=== PATIENT | female | born 1955 | race Caucasian/White ===

== ENCOUNTER 2020-12-06 14:14 | Outpatient (CLI) | payer MEDICARE, MEDICAID, SELFPAY ==
[2020-12-06 14:37] LABS: Basophils Percent Auto 0.5 % (0.2-1.2); Eosinophils Absolute Auto 0.2 K/mm3 (0-0.3); Eosinophils Percent Auto 2.4 % (0-4.4); Hematocrit 44.7 % (37.0-47.0); Hemoglobin 14.5 g/dL (12.0-15.0); Immature Granulocyte Absolute 0.03 K/mm3 (0.00-0.031); Immature Granulocyte Percent A 0.4 % (0-0.5); Lymphocytes Absolute Auto 2.48 K/mm3 (0.9-3.2); Lymphocytes Percent Auto 32.7 % (18.3-44.2); Mean Corpuscular HGB Conc 32.4 g/dl (32-36); Mean Corpuscular Hemoglobin 31.1 pg (26-34); Mean Corpuscular Volume 95.9 fl (80-100); Mean Platelet Volume 9.7 fl (7.4-10.4); Monocytes Absolute Auto 0.7 K/mm3 (0.1-0.6); Monocytes Percent Auto 9.8 % (2.6-8.5); Neutrophils Absolute Auto 4.1 K/mm3 (1.3-6.7); Neutrophils Percent Auto 54.2 % (45.5-73.1); Platelet Count Result 264 k/mm3 (150-375); Red Blood Count 4.66 M/mm3 (4.2-5.4); White Blood Count 7.6 K/mm3 (4.5-10.0)
[2020-12-06 16:30] LABS: Alanine Aminotransferase 55 U/L (4-35); Albumin Level 4.1 g/dL (3.5-5.1); Alkaline Phosphatase 132 U/L (38-126); Anion Gap 7 mmol/L (8-16); Aspartate Amino Transferase 63 U/L (14-36); Bilirubin,Total 0.5 mg/dL (0.2-1.3); Blood Urea Nitrogen 17 mg/dL (7-17); Calcium 9.3 mg/dL (8.4-10.2); Carbon Dioxide 26 mmol/L (22-30); Chloride 106 mmol/L (98-107); Estimated Glomerular Filt Rate > 60; Glucose 97 mg/dL (65-105); Potassium 4.1 mmol/L (3.4-5.0); Sodium 139 mmol/L (137-145)
== END 2020-12-06 14:15 | disposition home or self-care (01) ==
LOC: ANHLAB 14:19
PROVIDERS: Visit Provider Internal Medicine Hematology & Oncology
DX: C34.90 Malignant neoplasm of unspecified part of unspecified bronchus or lung (principal)
CPT/HCPCS: 36415; 80053; 85025

== ENCOUNTER 2020-12-11 06:37 | Outpatient (CLI) | payer MEDICARE, MEDICAID, SELFPAY ==
--- NOTE | ~2020-12-11 | CT_ITS ---
EXAMINATION: CT diagnostic chest w con DATE: 12/11/2020 07:35 INDICATION: Small cell lung cancer TECHNIQUE: Transaxial computed tomographic images of the chest were obtained after the administration of 75 cc of Omnipaque 350 intravenous contrast. The dose-length product (DLP) was 175.08 mGy-cm. Ite rative reconstruction was used. COMPARISON: None FINDINGS: There is severe emphysema. There is a 6 mm nodule of the right lower lobe on image 62. Calc ified pulmonary nodules are consistent with old granulomatous disease. There is no pleural effusion o r pneumothorax. No pathologically enlarged thoracic lymph nodes are identified. The heart size is nor mal. Surgical changes of left axillary lymph node dissection are noted. There is calcified coronary a rtery atherosclerosis. A moderate-sized pericardial effusion is noted. There is a small sliding hiata l hernia. The liver is diffusely low in attenuation when compared with the spleen, consistent with he patic steatosis. There is mild thoracic spondylosis. IMPRESSION: 1. Indeterminate right lower lobe nodule. Comparison with any prior available imaging would be helpfu l. 2. Severe emphysema. 3. Moderate-sized pericardial effusion. Reviewed, dictated and finalized at location A. AL SUPERINTENDENT IMPRESSION: 1. Indeterminate right lower lobe nodule. Comparison with any prior available i maging would be helpful. 2. Severe emphysema. 3. Moderate-sized pericardial effusion.
== END 2020-12-11 06:38 | disposition home or self-care (01) ==
PROVIDERS: Visit Provider Internal Medicine Hematology & Oncology
DX: C34.90 Malignant neoplasm of unspecified part of unspecified bronchus or lung (principal); J43.9 Emphysema, unspecified; I31.3 Pericardial effusion (noninflammatory)
CPT/HCPCS: 71260; Q9967

== ENCOUNTER 2021-01-04 08:18 | Outpatient (CLI) | payer MEDICARE, MEDICAID, SELFPAY | END 2021-01-04 08:19 | disposition home or self-care (01) | LOC: ANHCOVIDVC 08:18 | DX: Z23 Encounter for immunization (principal) | CPT/HCPCS: 0001A; 91300 ==

== ENCOUNTER 2021-01-25 08:10 | Outpatient (CLI) | payer MEDICARE, MEDICAID, SELFPAY | END 2021-01-25 08:11 | disposition home or self-care (01) | LOC: ANHCOVIDVC 08:10 | DX: Z23 Encounter for immunization (principal) | CPT/HCPCS: 0002A; 91300 ==

== ENCOUNTER 2021-03-19 10:57 | Outpatient (CLI) | payer MEDICARE, MEDICAID, SELFPAY ==
[2021-03-21 18:57] LABS: CA 15-3 20 U/mL (<32)
== END 2021-03-19 10:58 | disposition home or self-care (01) ==
LOC: ANHLAB 10:59
PROVIDERS: Visit Provider Internal Medicine Hematology & Oncology
DX: C50.412 Malignant neoplasm of upper-outer quadrant of left female breast (principal); Z17.0 Estrogen receptor positive status [ER+]
CPT/HCPCS: 36415; 86300

== ENCOUNTER 2021-03-27 13:27 | Outpatient (CLI) | payer MEDICARE, MEDICAID, SELFPAY ==
[2021-03-27 13:49] LABS: Basophils Percent Auto 0.4 % (0.2-1.2); Eosinophils Absolute Auto 0.2 K/mm3 (0-0.3); Eosinophils Percent Auto 2.9 % (0-4.4); Hematocrit 43.6 % (37.0-47.0); Hemoglobin 14.2 g/dL (12.0-15.0); Immature Granulocyte Absolute 0.04 K/mm3 (0.00-0.031); Immature Granulocyte Percent A 0.5 % (0-0.5); Lymphocytes Absolute Auto 2.42 K/mm3 (0.9-3.2); Lymphocytes Percent Auto 29.1 % (18.3-44.2); Mean Corpuscular HGB Conc 32.6 g/dl (32-36); Mean Corpuscular Hemoglobin 31.3 pg (26-34); Mean Corpuscular Volume 96.2 fl (80-100); Mean Platelet Volume 9.4 fl (7.4-10.4); Monocytes Absolute Auto 0.9 K/mm3 (0.1-0.6); Monocytes Percent Auto 10.9 % (2.6-8.5); Neutrophils Absolute Auto 4.7 K/mm3 (1.3-6.7); Neutrophils Percent Auto 56.2 % (45.5-73.1); Platelet Count Result 242 k/mm3 (150-375); Red Blood Count 4.53 M/mm3 (4.2-5.4); Red Cell Distribution Width 12.7 % (11.5-14.5); White Blood Count 8.3 K/mm3 (4.5-10.0)
== END 2021-03-27 13:28 | disposition home or self-care (01) ==
PROVIDERS: Visit Provider Internal Medicine Hematology & Oncology
DX: C34.90 Malignant neoplasm of unspecified part of unspecified bronchus or lung (principal)
CPT/HCPCS: 36415; 85025

== ENCOUNTER 2021-06-18 12:48 | Outpatient (CLI) | payer MEDICARE, MEDICAID, SELFPAY ==
--- NOTE | ~2021-06-18 | CT_ITS ---
EXAMINATION: CT chest abdomen pelvis w con DATE: 06/18/2021 13:33 INDICATION: Small cell lung cancer restaging TECHNIQUE: Computed tomography (CT) of the chest, abdomen, and pelvis was performed with 100 cc Omnip aque 350 intravenous contrast. Automated exposure control and iterative reconstruction technique were employed. Exam dose: 771.36 mGy-cm total exam DLP. COMPARISON: December 11, 2020 CT chest FINDINGS: CHEST CT: Severe emphysematous changes of the lungs, particularly the upper lobes. No pulmonary infiltrate or consolidation or pulmonary mass lesion is evident. There is mild pericardial effusion. Heart size is normal. There is coronary artery calcification. No thoracic aortic aneurysm or dissection. There is atherosclerotic calcification of the thoracic aor ta, great vessels No hilar or mediastinal mass lesion or lymphadenopathy. Small sliding hiatal hernia. ABDOMEN/PELVIS CT: There is diffuse hepatic steatosis. Gallbladder is absent. No bile duct or pancreatic duct dilatation. No hepatic or pancreatic or splenic space-occupying mass lesion normal morphology of the adrenal glan ds. Approximately 2 x 3 mm upper pole right renal calcification. 2.6 x 5.4 mm lower pole left renal calculus. The urinary bladder, uterus and adnexal areas are unremarkable. There is extensive calcification of the abdominal aorta but no aneurysm. No intraperitoneal or retrop eritoneal or pelvic mass lesion or adenopathy or ascites. There is extensive diverticulosis of the left colon; no CT evidence of diverticulitis. No bowel obstr uction, bowel wall thickening, pneumatosis or intraperitoneal free air. There is a benign lucency at the L3 vertebral body with thin sclerotic margins suggesting benign etio logy. No apparent suspicious osteolytic or osteoblastic lesions. IMPRESSION: Severe emphysema Mild pericardial effusion Small sliding hiatal hernia Hepatic steatosis Status post cholecystectomy Nonobstructing calculus of each kidney Extensive diverticulosis of left colon; no evidence of diverticulitis Reviewed, dictated and finalized at Location [facility]. Reviewed, dictated and finalized at location A.
[2021-06-18 13:27] LABS: Estimated Glomerular Filt Rate 55
== END 2021-06-18 12:49 | disposition home or self-care (01) ==
PROVIDERS: PCP Physician Assistant; Visit Provider Internal Medicine Hematology & Oncology
DX: C34.90 Malignant neoplasm of unspecified part of unspecified bronchus or lung (principal); J43.9 Emphysema, unspecified; I31.3 Pericardial effusion (noninflammatory); K44.9 Diaphragmatic hernia without obstruction or gangrene; K76.0 Fatty (change of) liver, not elsewhere classified; Z90.49 Acquired absence of other specified parts of digestive tract; N20.0 Calculus of kidney; K57.90 Diverticulosis of intestine, part unspecified, without perforation or abscess without bleeding
CPT/HCPCS: 71260; 74177; Q9967

== ENCOUNTER 2021-06-25 12:41 | Outpatient (CLI) | payer MEDICARE, MEDICAID, SELFPAY ==
[2021-06-25 13:03] LABS: Basophils Percent Auto 0.5 % (0.2-1.2); Eosinophils Absolute Auto 0.1 K/mm3 (0-0.3); Eosinophils Percent Auto 2.3 % (0-4.4); Hematocrit 41.9 % (37.0-47.0); Hemoglobin 13.7 g/dL (12.0-15.0); Immature Granulocyte Absolute 0.01 K/mm3 (0.00-0.031); Immature Granulocyte Percent A 0.2 % (0-0.5); Lymphocytes Absolute Auto 1.93 K/mm3 (0.9-3.2); Mean Corpuscular HGB Conc 32.7 g/dl (32-36); Mean Corpuscular Hemoglobin 31.4 pg (26-34); Mean Corpuscular Volume 95.9 fl (80-100); Mean Platelet Volume 9.6 fl (7.4-10.4); Monocytes Absolute Auto 0.6 K/mm3 (0.1-0.6); Monocytes Percent Auto 9.3 % (2.6-8.5); Neutrophils Absolute Auto 3.5 K/mm3 (1.3-6.7); Neutrophils Percent Auto 56.7 % (45.5-73.1); Platelet Count Result 232 k/mm3 (150-375); Red Blood Count 4.37 M/mm3 (4.2-5.4); White Blood Count 6.2 K/mm3 (4.5-10.0)
[2021-06-25 13:07] LABS: Blood Urea Nitrogen 12 mg/dL (8-26); Carbon Dioxide 24 mmol/L (22-30); Chloride 101 mmol/L (98-109); Estimated Glomerular Filt Rate > 60; Glucose 122 mg/dL (70-105); Sodium 140 mmol/L (138-146)
[2021-06-25 16:48] LABS: Alanine Aminotransferase 47 U/L (4-35); Alkaline Phosphatase 101 U/L (38-126); Anion Gap 9 mmol/L (8-16); Aspartate Amino Transferase 87 U/L (14-36); Bilirubin,Total 0.5 mg/dL (0.2-1.3); Blood Urea Nitrogen 13 mg/dL (7-17); Calcium 9.4 mg/dL (8.4-10.2); Carbon Dioxide 26 mmol/L (22-30); Chloride 105 mmol/L (98-107); Estimated Glomerular Filt Rate > 60; Glucose 118 mg/dL (65-110); Potassium 4.3 mmol/L (3.4-5.0); Sodium 140 mmol/L (137-145)
== END 2021-06-25 12:42 | disposition home or self-care (01) ==
LOC: ANHLAB 12:44
PROVIDERS: PCP Physician Assistant; Visit Provider Internal Medicine Hematology & Oncology
DX: C34.90 Malignant neoplasm of unspecified part of unspecified bronchus or lung (principal)
CPT/HCPCS: 36415; 80048; 80053; 85025

== ENCOUNTER 2021-12-19 10:29 | Outpatient (CLI) | payer MEDICARE, MEDICAID, SELFPAY ==
--- NOTE | 2021-12-19 11:15 | NEURO_ITS ---
Impression: # Complains of numbness of left hand. History of chemotherapy. # Left ulnar neuropathy around the elbow. # No Carpal Tunnel Syndrome. # Normal needle/EMG exam. # Clinical correlation recommended. Nerve Conduction Studies Anti Sensory Summary Table Stim Site NR Peak (ms) P-T Amp (?V) Site1 Site2 Delta-P (ms) Dist (cm) Rufus (m/s) Left Median Anti Sensory (2-3nd Digit) Wrist 2.7 83.2 Wrist 2-3nd Digit 2.7 14.0 52 Wrist 2.6 69.9 Wrist 2-3nd Digit 2.7 14.0 52 Right Median Anti Sensory (2-3nd Digit) Wrist 2.4 60.8 Wrist 2-3nd Digit 2.4 14.0 58 Wrist 2.3 52.3 Wrist 2-3nd Digit 2.4 14.0 58 Left Radial Anti Sensory (Base 1st Digit) Wrist 1.8 37.4 Wrist Base 1st Digit 1.8 0.0 Right Radial Anti Sensory (Base 1st Digit) Wrist 2.0 20.2 Wrist Base 1st Digit 2.0 0.0 Left Ulnar Anti Sensory (5th Digit) Wrist 5.0 12.6 Wrist 5th Digit 5.0 14.0 28 Right Ulnar Anti Sensory (5th Digit) Wrist 2.2 23.0 Wrist 5th Digit 2.2 14.0 64 Motor Summary Table Stim Site NR Onset (ms) O-P Amp (mV) Site1 Site2 Delta-0 (ms) Dist (cm) Rufus (m/s) Left Median Motor (Abd Poll Brev) Wrist 3.0 1.2 Elbow Wrist 4.8 27.0 56 Elbow 7.8 1.4 Right Median Motor (Abd Poll Brev) Wrist 2.7 9.3 Elbow Wrist 4.1 25.0 61 Elbow 6.8 2.1 Left Ulnar Motor (Abd Dig Minimi) Wrist 3.0 1.8 A Elbow Wrist 6.8 30.0 44 A Elbow 9.8 1.7 B Elbow Wrist 5.7 25.0 44 B Elbow 8.7 2.0 Right Ulnar Motor (Abd Dig Minimi) Wrist 2.2 6.8 A Elbow Wrist 4.5 27.0 60 A Elbow 6.7 4.7 F Wave Studies NR F-Lat (ms) L-R F-Lat (ms) Left Median (Mrkrs) (Abd Poll Brev) 25.69 0.25 Right Median (Mrkrs) (Abd Poll Brev) 25.44 0.25 Left Ulnar (Mrkrs) (Abd Dig Min) 26.63 1.65 Right Ulnar (Mrkrs) (Abd Dig Min) 24.98 1.65 EMG Side Muscle Nerve Root Ins Act Fibs Amp Dur Recrt Comment Right 1stDorInt Ulnar C8-T1 Nml Nml Nml Nml Nml Right Ext Indicis Radial (Post Int) C7-8 Nml Nml Nml Nml Nml Right Ext Digitorum Radial (Post Int) C7-8 Nml Nml Nml Nml Nml Right BrachioRad Radial C5-6 Nml Nml Nml Nml Nml Right PronatorTeres Median C6-7 Nml Nml Nml Nml Nml Right Abd Poll Brev Median C8-T1 Nml Nml Nml Nml Nml Left 1stDorInt Ulnar C8-T1 Nml Nml Nml Nml Nml Left Ext Indicis Radial (Post Int) C7-8 Nml Nml Nml Nml Nml Left Ext Digitorum Radial (Post Int) C7-8 Nml Nml Nml Nml Nml Left BrachioRad Radial C5-6 Nml Nml Nml Nml Nml Left PronatorTeres Median C6-7 Nml Nml Nml Nml Nml Left Abd Poll Brev Median C8-T1 Nml Nml Nml Nml Nml MTDD
[2021-12-19 11:46] LABS: Basophils Percent Auto 0.6 % (0.2-1.2); Eosinophils Absolute Auto 0.2 K/mm3 (0-0.3); Eosinophils Percent Auto 2.4 % (0-4.4); Hemoglobin 14.6 g/dL (12.0-15.0); Immature Granulocyte Absolute 0.03 K/mm3 (0.00-0.031); Immature Granulocyte Percent A 0.4 % (0-0.5); Lymphocytes Absolute Auto 1.86 K/mm3 (0.9-3.2); Lymphocytes Percent Auto 26.3 % (18.3-44.2); Mean Corpuscular HGB Conc 33.2 g/dl (32-36); Mean Corpuscular Hemoglobin 32.2 pg (26-34); Mean Corpuscular Volume 96.9 fl (80-100); Mean Platelet Volume 9.8 fl (7.4-10.4); Monocytes Absolute Auto 0.7 K/mm3 (0.1-0.6); Monocytes Percent Auto 9.5 % (2.6-8.5); Neutrophils Absolute Auto 4.3 K/mm3 (1.3-6.7); Neutrophils Percent Auto 60.8 % (45.5-73.1); Platelet Count Result 246 k/mm3 (150-375); Red Blood Count 4.54 M/mm3 (4.2-5.4); Red Cell Distribution Width 13.4 % (11.5-14.5); White Blood Count 7.1 K/mm3 (4.5-10.0)
[2021-12-19 12:01] LABS: Alanine Aminotransferase 58 U/L (4-35); Albumin Level 4.1 g/dL (3.5-5.1); Alkaline Phosphatase 121 U/L (38-126); Anion Gap 9 mmol/L (8-16); Aspartate Amino Transferase 85 U/L (14-36); Bilirubin,Total 0.4 mg/dL (0.2-1.3); Blood Urea Nitrogen 15 mg/dL (7-17); Calcium 9.1 mg/dL (8.4-10.2); Carbon Dioxide 25 mmol/L (22-30); Chloride 106 mmol/L (98-107); Estimated Glomerular Filt Rate > 60; Glucose 144 mg/dL (65-110); Potassium 3.9 mmol/L (3.4-5.0); Sodium 140 mmol/L (137-145)
== END 2021-12-19 10:30 | disposition home or self-care (01) ==
PROVIDERS: PCP Family Medicine; Referring Provider Internal Medicine Hematology & Oncology; Visit Provider Family Medicine
DX: C34.90 Malignant neoplasm of unspecified part of unspecified bronchus or lung (principal); G56.22 Lesion of ulnar nerve, left upper limb
CPT/HCPCS: 36415; 80053; 85025; 95886; 95911

== ENCOUNTER 2021-12-24 08:30 | Outpatient (CLI) | payer MEDICARE, MEDICAID, SELFPAY ==
--- NOTE | ~2021-12-24 | CT_ITS ---
EXAMINATION: CT diagnostic chest w con DATE: 12/24/2021 09:19 INDICATION: Small cell lung cancer TECHNIQUE: Transaxial computed tomographic images of the chest were obtained after the administration of 75 cc of Omnipaque 350 intravenous contrast. The dose-length product (DLP) was 202.72 mGy-cm. Ite rative reconstruction was used. COMPARISON: 06/18/2021 FINDINGS: There is severe emphysema. There is a stable 6 mm nodule of the right lower lobe. There is scarring in the right lung apex. Calcified pulmonary nodules are consistent with old granulomatous di sease. There is no pleural effusion or pneumothorax. Mild dependent atelectasis is noted. There is a small sliding hiatal hernia. No pathologically enlarged thoracic lymph nodes are identified. The hear t size is normal. There is a small pericardial effusion. Calcified coronary artery atherosclerosis is noted. There is mild thoracic spondylosis. IMPRESSION: 1. Stable right lower lobe nodule, consistent with old granulomatous disease versus stable treated ma lignancy. 2. Severe emphysema. Reviewed, dictated and finalized at location F. STANT DIRECTOR OF NURSING IMPRESSION: 1. Stable right lower lobe nodule, consistent with old granulomatous disease ve rsus stable treated malignancy. 2. Severe emphysema.
== END 2021-12-24 08:31 | disposition home or self-care (01) ==
LOC: ANHIMG 08:33
PROVIDERS: PCP Family Medicine; Visit Provider Internal Medicine Hematology & Oncology
DX: C34.90 Malignant neoplasm of unspecified part of unspecified bronchus or lung (principal); J43.9 Emphysema, unspecified
CPT/HCPCS: 71260; Q9967

== ENCOUNTER 2022-02-20 01:02 | Day surgery (SDC) | payer MEDICARE, MEDICAID, SELFPAY ==
--- NOTE | 2022-02-11 13:56 | PC.NURSE ---
Report to the Outpatient Waiting Room, entrance under the green pavilion located off [facility], at time _0745 on date _02/20/22 . OR Time: . - You and your visitor will be asked a series of questions to screen for COVID 19 for your protection. - A mask is required within the hospital. Preoperative COVID Testing Requirements: No COVID Test needed if: (proof is required; if not received patient will have Rapid Test prior to entry) - Patient has received COVID Vaccine at least 14 days prior to procedure date or - Patient has positive COVID test result within last 90 days of surgery date. COVID Test needed if above criteria is not met If not COVID vaccinated a COVID test must be conducted within 72 hours of surgery and patient is asked to isolate self from time of testing until procedure. You will go to the [facility] for your COVID testing. The [facility] is located at the corner of [address] [facility]. You will only be called if COVID results are positive and your surgeon may reschedule your elective surgery date. Patients may have clear liquids (water, carbonated beverages, clear teas, apple juice) until 3 hours prior to surgery with a maximum of 20 ounces. - No food from midnight until time of surgery - Infants may have breast milk until 4 hours before surgery, infant formula 6 hours prior to surgery. - Children will be allowed to drink immediately following surgery. If applicable, please bring a bottle or sippy cup to assist with drinking. Juice, water, soda, and popsicles are readily available. For infants on formula, please bring formula the day of surgery. Pacifiers are allowed. Take the following medications with a SIP of water the morning of surgery: ___INHALERS,LEVOTHYROXINE Medications to discontinue per physician ALL VITAMINS AND SUPPLEMENTS 3 DAYS PRE OP Date to take last dose__02/16/22 Please no make-up, nail bengali, hairspray, perfume, deodorant, or body powder the day of surgery. No jewelry (including any body piercings) or valuables the day of surgery, leave them at home. Please take a shower or bath the night before, or the morning of, surgery with an antibacterial soap. Wear comfortable, loose fitting clothing. Children are encouraged to wear pajamas. - Jewelry must be removed prior to entering the operating room. Rings and piercings that are not removed may be cut off. - The hospital will not accept responsibility for valuables. - Please leave all valuables, including medications, at home the day of surgery. If you are going home after surgery, a licensed full service vending driver must drive you home. - NO public transportation without another adult. - We recommend that an adult stay with you for 24 hours following discharge. - We also recommend that you do not drive, make important decision, drink alcoholic beverages, or take any drugs that were not prescribed by your health care provider for at least 24 hours after your discharge time. For Pediatric surgeries, we recommend two adults accompany the child home (only one inside the building at this time). One visitor will be allowed to accompany the patient into the hospital. Patients visitor will be instructed to remain with patient at all times or leave the building. We will allow the visitor to come back to the postoperative area when patient is ready. Follow any additional instructions given to you from your surgeon. Telephone instructions given to _PATIENT and asked if any additional questions and then verbalized understanding. Patient advised to call surgeon office or pre surgery nurse liaison [phone] if any additional questions.
[2022-02-11 14:02] VITALS: BMI 30.1
--- NOTE | 2022-02-19 13:51 | WPDANESEPPF ---
Anes - Initial Pre Proc Eval Procedure: Operation Date: 02/20/22 09:45 Proposed Procedures p Left Ulnar Neuroplasty at Elbow - Neil Loja MD Date/Time: 02/19/22 13:51 Surgeon: Neil Loja MD Pre Op Diagnosis: left cubital tunnel syndrome Patient Data Age: 66 Gender: F Height: 1.6 m Weight: 77.15 kg Allergies Allergy/AdvReac Type Severity Reaction Status Date / Time etoposide Allergy Mild FAINTED/DIZ Verified 02/20/22 07:46 ZINESS Home Medications Medication Instructions Recorded Confirmed Type montelukast 10 mg tablet 10 mg PO QHS 09/12/21 02/20/22 History tiotropium bromide 2.5 2 puff INHALATION DAILY 09/12/21 02/20/22 History mcg/actuation mist for inhalation albuterol sulfate 90 mcg/actuation 1 puff INHALATION Q4H PRN #8.5 g 10/15/21 02/20/22 Rx aerosol inhaler cetirizine [Zyrtec] 10 mg PO DAILY 02/11/22 02/20/22 History cholecalciferol (vitamin D3) 50 mcg PO DAILY 02/11/22 02/20/22 History levothyroxine 25 mcg PO DAILY 02/11/22 02/20/22 History miconazole nitrate 1 applic TOPICAL PRN PRN 02/11/22 02/11/22 History multivitamin [Multi-Vitamins] 1 tablet PO DAILY 02/11/22 02/20/22 History Patient hx anesthesia problems: none Family hx anesthesia problems: none Results Review: All pre-operative results and documents have been reviewed as part of the pre-operative evaluation. [facility] Past Medical History Medical History COPD (chronic obstructive pulmonary disease) History of bilateral breast cancer History of rheumatic fever as a child Hypothyroidism IBS (irritable bowel syndrome) Lactose intolerance Osteoarthritis Pre-diabetes Prolapse of mitral valve Seasonal allergies Small cell lung cancer, right upper lobe Surgical History Surgical History History of bilateral mastectomy 2003 Hx of cholecystectomy (~1984) Family History Family History Mother Breast cancer Diabetes mellitus Sibling Diabetes mellitus Son Diabetes mellitus Social History Social History Smoking packs per day: 1.5 Smoking cigarettes per day: 30.0 Years smoked: 53 Smoking pack-years: 79.50 Smoking status: Former smoker Tobacco type: cigarettes Smoking end date: 11/03/16 Alcohol intake: never Substance use: never Substance use type: does not use Living arrangements: with family Gender identity (if verbalized by the patient): Female Spiritual care concerns: No Anes - Eval Final PreProcedure Day of Procedure 02/19/22 13:51 Patient weight: obese Heart: regular rate and rhythm Lungs: clear to auscultation and normal air movement Airway: Mallampati scale class II Neurological: alert and oriented Last oral intake: >/= 8 hours ASA classification: III Emergent: no Anesthetic plan: proceed Anesthesia type and monitoring: general GIVS and standard monitoring Results Review: All pre-operative results and documents have been reviewed as part of the pre-operative evaluation. Informed Consent: The patient's anesthetic plan and its attendant risks and benefits were discussed with the patient/family/POA. Questions were solicited and answers provided to the satisfaction of the patient/family/POA.
--- NOTE | 2022-02-20 07:20 | WPDHPUPDATE1 ---
History and Physical Update Update Date/Time: 02/20/22 07:20 History and Physical has been reviewed, including an updated exam of the patient. There are NO changes in the patient's condition. Risks, benefits, and alternatives have been discussed and questions answered. Patient agrees to proceed with procedure.
[2022-02-20 07:56] VITALS: BP 149/94; PULSE 108; RESP 20; TEMP 36.5; O2SAT 96
[2022-02-20] MEDS: LACTATED RINGERS 1,000 ML 30 ML IV CONT (08:17)
[2022-02-20] MEDS: BACITRACIN OINTMENT 15 GM TUBE 1 APPLIC TOPICAL (10:19)
[2022-02-20] MEDS: LIDO 1%/EPINEPHRINE/PF 1:200,000 30 ML VIAL XX (10:25)
[2022-02-20 10:41] VITALS: BP 154/86; PULSE 82; RESP 16; O2SAT 95
--- NOTE | 2022-02-20 10:57 | W.PM.PROC2 ---
Procedure Note - Detailed Date of Procedure 02/20/22 Pre-op Diagnosis left cubital tunnel syndrome Post-op Diagnosis Same Procedure Performed Left ulnar neuroplasty at the elbow Surgeon Neil Loja MD Obstetric Assistant [facility] Description of Procedure The cubital marked on the arm in the holding area. She was taken to the operating room and placed supine on the operating table. She was given IV sedation. The extremity was prepped and draped in usual fashion. Time-out was held and confirmed. Site was remarked for the incision and locally infiltrated with 1% lidocaine with epinephrine. Tourniquet was inflated to 250 mmHg. The incision was made as marked with the elbow on folded towels and flexed. Dissection was carried bluntly through the subcutaneous tissue to medial epicondyle. The nerve was located just proximal to that and was overlaid by some fairly robust triceps muscle. The nerve was clearly identified proximal to the medial epicondyle and carefully released distally. Most compression appeared to be a Huertas ligament. Neither the intermuscular septum nor the flexor muscle fascia appeared to be contributing constrictions. The wound was closed intradermal 3-0 Monocryl sutures interrupted fashion and glue. The usual bandage was applied to she is discharge instructions wound care follow-up. She has a prescription for hydrocodone 6. Estimated Blood Loss 2 Drains No Packing No Pathology None sent Complications No immediate complications Condition Stable Disposition Same day
[2022-02-20 11:10] VITALS: BP 132/64; PULSE 78
== END 2022-02-20 11:36 | disposition home or self-care (01) ==
PROVIDERS: PCP Family Medicine; Visit Provider Plastic Surgery
PROC: (CPT 64718; principal; 2022-02-20 09:45)
DX: G56.22 Lesion of ulnar nerve, left upper limb (principal); J44.9 Chronic obstructive pulmonary disease, unspecified; E03.9 Hypothyroidism, unspecified; R73.03 Prediabetes; Z85.3 Personal history of malignant neoplasm of breast; I34.1 Nonrheumatic mitral (valve) prolapse; Z85.118 Personal history of other malignant neoplasm of bronchus and lung; Z79.51 Long term (current) use of inhaled steroids; Z87.891 Personal history of nicotine dependence; E66.9 Obesity, unspecified; Z68.30 Body mass index [BMI] 30.0-30.9, adult
CPT/HCPCS: 64718; A9270; J2704; J3010; J7120

== ENCOUNTER 2022-06-12 12:26 | Outpatient (CLI) | payer MEDICARE, MEDICAID, SELFPAY ==
--- NOTE | 2022-06-12 15:16 | WPDSIXMINUTE ---
Six Minute Walk Procedure Procedure Performed Pulmonary Stress Test (6 min walk) Six Minute Walk Six Minute Walk: This 6 minute walk test was carried out with the patient breathing ambient air. The pre walk oxyhemoglobin saturation was 94%. The patient walked over 243 m with no stops during testing. During the walk, the oxyhemoglobin saturation remained in the range of 94% to 95%. Impression: No evidence of oxyhemoglobin desaturation on this testing.
== END 2022-06-12 12:27 | disposition home or self-care (01) ==
LOC: ANHPFT 12:27
PROVIDERS: PCP Family Medicine
DX: J44.9 Chronic obstructive pulmonary disease, unspecified (principal)
CPT/HCPCS: 94618

== ENCOUNTER 2022-07-20 10:15 | Outpatient (CLI) | payer MEDICARE, MEDICAID, SELFPAY ==
--- NOTE | ~2022-07-20 | CT_ITS ---
EXAMINATION:CT diagnostic chest w con DATE: 07/20/2022 11:19 INDICATION: Small cell lung cancer. TECHNIQUE: Computed tomography (CT) of the chest was performed with 150 mL Omnipaque 350 intravenous contrast. Automated exposure control and iterative reconstruction technique were employed. The dose-l ength product (DLP) was 317.65 mGy-cm. COMPARISON: Chest CT 12/24/2021, 06/18/21, 12/11/20 FINDINGS: There is severe emphysema. There is mild atelectasis bilaterally. There is a 5 mm nodule in right lower lobe, stable from 12/11/2020, likely benign. A calcified right lung nodule is consistent w ith old granulomatous disease. No pleural effusion. The heart size is normal. There are coronary maria luisa ry calcifications. There is a small pericardial effusion. There is a small sliding hiatal hernia. The re are no pathologically enlarged lymph nodes. There is severe cervical spondylosis and mild thoracic spondylosis. IMPRESSION: 1. No evidence of metastatic disease. 2. Severe emphysema. Reviewed, dictated and finalized at location A.
[2022-07-22 13:28] LABS: Estimated Glomerular Filt Rate 55
== END 2022-07-20 10:16 | disposition home or self-care (01) ==
PROVIDERS: PCP Family Medicine; Visit Provider Internal Medicine Hematology & Oncology
DX: C34.90 Malignant neoplasm of unspecified part of unspecified bronchus or lung (principal); J43.9 Emphysema, unspecified
CPT/HCPCS: 71260; Q9967

== ENCOUNTER 2022-08-30 09:30 | Outpatient (RCR) | payer MEDICARE, MEDICAID, SELFPAY | END 2022-08-30 23:59 | disposition home or self-care (01) | LOC: ANHCPREHAB 09:30 | PROVIDERS: PCP Family Medicine | DX: J44.9 Chronic obstructive pulmonary disease, unspecified (principal) | CPT/HCPCS: 94625 ==

== ENCOUNTER 2022-10-04 09:30 | Outpatient (RCR) | payer MEDICARE, MEDICAID, SELFPAY | END 2022-10-04 16:30 | disposition home or self-care (01) | LOC: ANHCPREHAB 09:30 | PROVIDERS: PCP Family Medicine | DX: J44.9 Chronic obstructive pulmonary disease, unspecified (principal) | CPT/HCPCS: 94625 ==

== ENCOUNTER 2022-10-10 12:27 | Outpatient (CLI) | payer MEDICARE, MEDICAID, SELFPAY ==
--- NOTE | 2022-10-11 17:01 | WPDSIXMINUTE ---
Six Minute Walk Procedure Procedure Performed Pulmonary Stress Test (6 min walk) Six Minute Walk Six Minute Walk: This is a 6 minute walk test. The test was performed and interpreted in accordance with the 2014 ERS/ATS task force guidelines. patient used a wheeled walker with 2 L nasal cannula as prescribed. Findings: The patient's resting oxygen saturation on 2 L NC measured by pulse oximetry was 93% and heart rate was 109 bpm. Patient ambulated for 244 meters and oxygen saturation remained 88 to 95%. Heart rate at the end of the study was 56 bpm. Of note the patient's oxygen saturation decreased to 87% at 1 minutes and 30 seconds into the recovery phase. Of note the patient's heart rate recovered to 75 at 1 minute and 30 seconds into the recovery phase. There are no prior studies for comparison.
== END 2022-10-10 12:28 | disposition home or self-care (01) ==
PROVIDERS: PCP Family Medicine
DX: J44.9 Chronic obstructive pulmonary disease, unspecified (principal)
CPT/HCPCS: 94618

== ENCOUNTER 2023-01-31 08:13 | Outpatient (CLI) | payer MEDICARE, MEDICAID, SELFPAY ==
--- NOTE | ~2023-01-31 | CT_ITS ---
Clinical Indication: Small cell lung cancer CT Scan of the Chest with Contrast: Technique: Contiguous sections were acquired throughout the chest after intravenous administration of 75 cc of Omnipaque 350. Dose reduction technique was used on this scan by utilizing automated exposu re control and iterative reconstruction technique. The dose-length product (DLP) was 228.86 mGy-cm. COMPARISON: 07/20/2022 Findings: There is no evidence of any significant mediastinal, hilar or axillary lymphadenopathy. There is no f illing defect in the pulmonary arterial tree to suggest pulmonary embolus. There is no evidence of ao rtic dissection or aneurysm. There are atherosclerotic ossifications of the aorta and coronary arteri es. Minimal pericardial fluid noted, similar to prior exam. There is no evidence of pleural or pericardial effusion. The lungs are clear. There is an irregular 1.1 x 0.6 cm right lower lobe pulmonary nodule, increase i n size from prior exam (axial image 70).. Severe emphysema noted. Images through the upper abdomen reveal no abnormalities. Impression: 1.1 x 0.6 cm right lower lobe pulmonary nodule is increased in size from prior exam. Neoplastic/metas tatic disease is not excluded. Given relatively small size and severe emphysema, consider tissue samp ling versus short-term follow-up CT or PET scan for further evaluation at this time. Severe emphysema. Minimal pericardial fluid, similar to prior exam. Reviewed, dictated and finalized at [facility]. Impression: 1.1 x 0.6 cm right lower lobe pulmonary nodule is increased in size from prior exam. Neoplastic/metastatic disease is not excluded. Given relatively small siz e and severe emphysema, consider tissue sampling versus short-term follow-up CT or PET scan for further evaluation at this time. Severe emphysema. Minimal pericardial fluid, similar to prior exam.
[2023-01-31 11:03] LABS: Basophils Absolute Auto 0.1 K/mm3 (0.0-0.1); Basophils Percent Auto 0.7 % (0.2-1.2); Eosinophils Absolute Auto 0.2 K/mm3 (0-0.3); Eosinophils Percent Auto 2.9 % (0-4.4); Hematocrit 46.6 % (37.0-47.0); Hemoglobin 15.4 g/dL (12.0-15.0); Immature Granulocyte Absolute 0.02 K/mm3 (0.00-0.031); Immature Granulocyte Percent A 0.3 % (0-0.5); Lymphocytes Percent Auto 26.7 % (18.3-44.2); Mean Corpuscular Hemoglobin 32.6 pg (26-34); Mean Corpuscular Volume 98.7 fl (80-100); Mean Platelet Volume 9.5 fl (7.4-10.4); Monocytes Absolute Auto 0.6 K/mm3 (0.1-0.6); Monocytes Percent Auto 7.9 % (2.6-8.5); Neutrophils Absolute Auto 4.4 K/mm3 (1.3-6.7); Neutrophils Percent Auto 61.5 % (45.5-73.1); Platelet Count Result 215 k/mm3 (150-375); Red Blood Count 4.72 M/mm3 (4.2-5.4); Red Cell Distribution Width 13.2 % (11.5-14.5); White Blood Count 7.1 K/mm3 (4.5-10.0)
[2023-01-31 11:21] LABS: Alanine Aminotransferase 45 U/L (6-35); Alkaline Phosphatase 144 U/L (38-126); Anion Gap 12 mmol/L (8-16); Aspartate Amino Transferase 64 U/L (14-36); Bilirubin,Total 0.8 mg/dL (0.2-1.3); Blood Urea Nitrogen 15 mg/dL (7-17); Calcium 8.8 mg/dL (8.4-10.2); Carbon Dioxide 21 mmol/L (22-30); Chloride 102 mmol/L (98-107); Estimated Glomerular Filt Rate > 60; Glucose 113 mg/dL (65-110); Potassium 4.1 mmol/L (3.4-5.0); Sodium 135 mmol/L (137-145)
== END 2023-01-31 08:14 | disposition home or self-care (01) ==
PROVIDERS: PCP Family Medicine; Referring Provider Internal Medicine Hematology & Oncology; Visit Provider Internal Medicine Hematology & Oncology
DX: C50.412 Malignant neoplasm of upper-outer quadrant of left female breast (principal); Z17.0 Estrogen receptor positive status [ER+]
CPT/HCPCS: 36415; 71260; 80053; 85025; Q9967

== ENCOUNTER 2023-04-28 12:22 | Outpatient (CLI) | payer MEDICARE, MEDICAID, SELFPAY ==
--- NOTE | ~2023-04-28 | DEXA_ITS ---
Bone Density Report Name: DERRICK ALEX Age: 67 Sex: Female Ethnicity: White Date of : 1955 Indication: postmenopausal; screening for osteoporosis; height loss; history of glucocorticoids; cancer; asthma or emphysema; Referring Provider: OLGA KWONG Study: Bone densitometry was performed. Exam Date: April 28, 2023 Accession number: [id number] Bone Density: Region BMD T-score Z-score Classification AP Spine(L1-L4) 1.084 0.3 2.4 Normal Femoral Neck (Left) 0.693 -1.4 0.4 Osteopenia Total Hip (Left) 0.880 -0.5 1.0 Normal Femoral Neck (Right) 0.659 -1.7 0.1 Osteopenia Total Hip (Right) 0.859 -0.7 0.8 Normal Total Hip Mean 0.869 -0.6 0.9 Normal World Health Organization criteria for BMD impression classify patients as: Normal (T-score at or above -1.0), Osteopenia (T-score between -1.0 and -2.5), or Osteoporosis (T-score at or below -2.5). 10-year Fracture Risk(1): Major Osteoporotic Fracture 16% Hip Fracture 3.0% Reported Risk Factors: [place] (), Neck BMD=0.659, BMI=29.7, glucocorticoids (1) FRAX(R) Version 3.08. Fracture probability calculated for an untreated patient. Fracture probability may be lower if the patient has received treatment. Clinical Information Provided by Patient: Has taken Glucocorticoids Has used the following medications: Vitamin D, Calcium Has the following medical conditions: Asthma or Emphysema, Cancer Patient maximum height was 63.5 Menopause Age: 48 No regular weight bearing exercise Does not regularly consume dairy products Drinks caffeinated beverages Onset of menses at age 11 Number of children 3 Impression: The patient has low bone mass, based on the Right Femoral Neck T-score. The patient has an estimated ten-year risk of hip fracture of 3% and an estimated ten-year risk of major fracture of 16%, based on the WHO FRAX algorithm. The patient has risk factors, including: history of glucocorticoid therapy. Discussion: BONE DENSITY IS LOW AT ONE OR MORE SKELETAL SITES. THE PATIENT'S BMD AND CLINICAL RISK FACTORS CONTRIBUTE TO THIS PATIENT'S INCREASED RISK OF FRACTURE. This patient's lowest T-score is low at one or more skeletal sites. It meets the World Health Organization's (WHO) criteria for ?low bone mass? (T-score between -1.0 and -2.5). The patient's 10-year risk of hip fracture as calculated by FRAX exceeds the threshold where pharmacological therapy is recommended by the National Osteoporosis Foundation (NOF). However, all treatment decisions require clinical judgment and consideration of individual patient factors, including patient preferences, comorbidities, previous drug use, risk factors not captured in the FRAX model (e.g., frailty, falls, vitamin D deficiency, increased bone turnover, interval significant decl
== END 2023-04-28 12:23 | disposition home or self-care (01) ==
LOC: ANHIMG 12:25
PROVIDERS: PCP Family Medicine; Visit Provider Registered Nurse
DX: Z78.0 Asymptomatic menopausal state (principal); M85.852 Other specified disorders of bone density and structure, left thigh; M85.851 Other specified disorders of bone density and structure, right thigh
CPT/HCPCS: 77080

== ENCOUNTER 2023-05-14 07:49 | Outpatient (CLI) | payer MEDICARE, MEDICAID, SELFPAY ==
--- NOTE | ~2023-05-14 | CT_ITS ---
Clinical Indication: Lung cancer CT Scan of the Chest with Contrast: Technique: Contiguous sections were acquired throughout the chest after intravenous administration of 75 cc of Omnipaque 350. Dose reduction technique was used on this scan by utilizing automated exposu re control and iterative reconstruction technique. The dose-length product (DLP) was 191.82 mGy-cm. COMPARISON: 01/31/2023 Findings: There is no evidence of any significant mediastinal, hilar or axillary lymphadenopathy. There is no f illing defect in the pulmonary arterial tree to suggest pulmonary embolus. There is no evidence of ao rtic dissection or aneurysm. Coronary artery calcifications are present. Small pericardial effusion p resent. No pleural effusion. Severe emphysema noted. Previously noted right lower lobe pulmonary nodule is decreased confluence as compared to prior exam, probable focal scarring at this location. Images through the upper abdomen reveal no abnormalities. Impression: No definite evidence for active malignancy or metastatic disease. Previously noted right lower lobe p ulmonary nodule is decreased as compared to prior exam. Severe emphysema. Small pericardial effusion. Reviewed, dictated and finalized at location M. Impression: No definite evidence for active malignancy or metastatic disease. Previously no nicky right lower lobe pulmonary nodule is decreased as compared to prior exam. Severe emphysema. Small pericardial effusion.
[2023-05-14 08:24] LABS: Estimated Glomerular Filt Rate 45
[2023-05-14 09:03] LABS: Basophils Absolute Auto 0.1 K/mm3 (0.0-0.1); Basophils Percent Auto 0.7 % (0.2-1.2); Eosinophils Absolute Auto 0.1 K/mm3 (0-0.3); Eosinophils Percent Auto 1.9 % (0-4.4); Hematocrit 43.9 % (37.0-47.0); Hemoglobin 14.5 g/dL (12.0-15.0); Immature Granulocyte Absolute 0.01 K/mm3 (0.00-0.031); Immature Granulocyte Percent A 0.1 % (0-0.5); Lymphocytes Percent Auto 34.2 % (18.3-44.2); Mean Corpuscular Hemoglobin 32.5 pg (26-34); Mean Corpuscular Volume 98.4 fl (80-100); Mean Platelet Volume 9.5 fl (7.4-10.4); Monocytes Absolute Auto 0.6 K/mm3 (0.1-0.6); Monocytes Percent Auto 9.2 % (2.6-8.5); Neutrophils Absolute Auto 3.6 K/mm3 (1.3-6.7); Neutrophils Percent Auto 53.9 % (45.5-73.1); Platelet Count Result 198 k/mm3 (150-375); Red Blood Count 4.46 M/mm3 (4.2-5.4); Red Cell Distribution Width 12.8 % (11.5-14.5); White Blood Count 6.7 K/mm3 (4.5-10.0)
[2023-05-14 09:13] LABS: Alanine Aminotransferase 31 U/L (6-35); Albumin Level 4.2 g/dL (3.5-5.1); Alkaline Phosphatase 113 U/L (38-126); Anion Gap 4 mmol/L (8-16); Aspartate Amino Transferase 39 U/L (14-36); Bilirubin,Total 0.6 mg/dL (0.2-1.3); Blood Urea Nitrogen 17 mg/dL (7-17); Calcium 9.4 mg/dL (8.4-10.2); Carbon Dioxide 32 mmol/L (22-30); Chloride 100 mmol/L (98-107); Cholesterol 222 mg/dL (0-200); Estimated Glomerular Filt Rate 49; Glucose 99 mg/dL (65-110); HDL Direct 37 mg/dL; Potassium 4.9 mmol/L (3.4-5.0); Sodium 136 mmol/L (137-145); Triglycerides 113 mg/dL (<150)
[2023-05-14 09:20] LABS: Hemoglobin A1C 5.8 % (<5.7)
[2023-05-14 09:23] LABS: LDL Cholesterol Direct 146 mg/dL
[2023-05-14 10:07] LABS: Vitamin D 25 Hydroxy 66.6 ng/mL
== END 2023-05-14 07:50 | disposition home or self-care (01) ==
PROVIDERS: PCP Family Medicine; Visit Provider Internal Medicine Hematology & Oncology
DX: E03.9 Hypothyroidism, unspecified (principal); R73.03 Prediabetes; E78.5 Hyperlipidemia, unspecified; R26.81 Unsteadiness on feet; E53.8 Deficiency of other specified B group vitamins; E55.9 Vitamin D deficiency, unspecified; C34.90 Malignant neoplasm of unspecified part of unspecified bronchus or lung; J43.9 Emphysema, unspecified; I31.39 Other pericardial effusion (noninflammatory)
CPT/HCPCS: 71260; 80053; 80061; 82306; 82607; 83036; 84443; 85025; Q9967

== ENCOUNTER 2023-06-25 11:00 | Outpatient (RCR) | payer MEDICARE, MEDICAID, SELFPAY ==
--- NOTE | 2023-05-19 11:51 | OPREHPOC ---
Outpatient Therapy Plan of Care This is a Multidisciplinary Plan of Care that may contain components documented by all disciplines (PT, OT, and ST.) PT Problem 1 PT Problem #1 Knowledge Deficit PT Goal 1 Goal Independent with HEP Target Visit 6 PT Problem 2 PT Problem #2 Impaired Strength PT Goal 1 Goal Increase WAGNER LE to grossly 4+/5 Target Visit 6 PT Problem 3 PT Problem #3 Pain PT Goal 1 Goal Decrease L sided pain to no worse than 4/10 with walking and stair climbing. Target Visit 6
--- NOTE | 2023-05-19 11:51 | PTOPEVAL1 ---
Assessment and note entered by Dioni Morgan, PT Evaluation Information Assessment Status Evaluation Diagnosis Unsteadiness on feet, Pain in L knee, other chronic pain. Subjective Information Patient reports having issues all over the L side of her body including pain in the L knee and hip along with decreased strength in the L hand and her toes curling under her on the L foot. Patient because of the left leg is having trouble getting in and out of family members' trucks, in/out of the bathtub. With the hand having trouble loading her inhalers. Patient reports mainly pain is with the steps and walking. Reported Pain Level Pain Score 4: Self Report Assessment PT Clinical Summary Maira is a 67 year old female coming into the clinic with a diagnosis of L sided pain in the knee hip and weakness in the R hand (recommend referral to OT to work on hand weakness). WAGNER hips and L knee appear to be arthritic. With scouring test patient actually has worse symptoms with the R hip. Patient also has tightness in the WAGNER piriformis and hamstrings. Physical therapy will work on strengthening of the lower back and lower extremity exercises to take stress off of the joints in the lower extremities along with stretches to improve body alignment. Manual and modalities as needed for pain. Plan of Care Interventions Gait Training,Manual Therapy,Neuro Re-education, Patient/Caregiver Education,Therapeutic Activities, Therapeutic Exercise Other Interventions cupping, taping, IASTM PT Services Indicated Yes Treatment Frequency and 1-2x/wk for 4 weeks Duration These treatments will address the objective and functional deficits as defined above. The patient will be advanced safely and appropriately in order for the patient to progress towards his/her prior level of function. Additional exercises will be introduced and as well as a comprehensive home exercise program upon discharge, if needed, ?to ensure carryover of functional gains achieved in the clinic. This treatment plan has been reviewed and agreement upon by the patient.
--- NOTE | 2023-05-23 10:40 | PCPTNOTE ---
Patient called & cancelled scheduled appointment this date due to having another appointment.
--- NOTE | 2023-06-04 10:38 | PCPTNOTE ---
pt stated during today's treatment session, that she will not be here next week due to not having a ride; her friend that brings here will be out of town.
--- NOTE | 2023-06-25 11:55 | PTOPDC ---
Assessment and note entered by Dioni Morgan, PT Evaluation Information Assessment Status Discharge Diagnosis small cell lung cancer Subjective Information Patient reports she is doing okay with her walking besides she needs to get her nails cut as they are curling under and she is walking on them. She is able to do steps with 1 handrail without issue as long as she does 1 step at a time and she is able to get in/out of her family trucks, but her family has been unable to give her rides so she has had to be using [employer]. 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 Reported Pain Level Pain Score 4: Self Report Additional Pain Score Comments Pain is mainy in the feet. Assessment PT Clinical Summary Fide is a 67 year old female coming into the clinic with a diagnosis of small cell lung cancer. The patient was evaluated on 05/19/23 and has attended 5 sessions over all. Patient has improved strength in her legs and when talking about deficits is mentioning getting her toenails cut (podiatry), losing weight (procurement buyer) and working on costume director strength (occupational therapy/ hand therapist) more than things in the physical therapy's scope of practice. Discharge from skilled physical therapy with recommendation for referrals to podiatry, procurement buyer, and occupational therapy. Plan of Care PT Services Indicated No
== END 2023-06-26 13:12 | disposition home or self-care (01) ==
LOC: ANHPT 11:00
PROVIDERS: PCP Family Medicine; Visit Provider Family Medicine
DX: R26.81 Unsteadiness on feet (principal); M25.562 Pain in left knee; G89.29 Other chronic pain
CPT/HCPCS: 97110; 97112; 97140; 97161; 97530

== ENCOUNTER → 2023-07-14 13:30 | Outpatient (CLI) | payer MEDICARE, SELFPAY ==
--- NOTE | ~2023-07-14 | XR_ITS ---
XR knee LT 3V 07/14/2023 13:47 Indication: Left knee pain Procedure: 3 views left knee Comparison: 07/10/2023 Findings: No fracture, subluxation or dislocation. No significant soft tissue abnormality. No foreign bodies. Moderate prepatellar soft tissue swelling. There is anatomic alignment. There is mild patell ofemoral compartment osteoarthritis. Impression: 1: Moderate prepatellar soft tissue swelling. Consider bursitis in the appropriate clinical setting. 2: Mild patellofemoral compartment osteoarthritis. Reviewed, dictated and finalized at location B. Impression: 1: Moderate prepatellar soft tissue swelling. Consider bursitis in the appropri ate clinical setting. 2: Mild patellofemoral compartment osteoarthritis.
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
== END ==
PROVIDERS: PCP Family Medicine; Visit Provider Family Medicine
DX: M25.551 Pain in right hip (principal); S80.212A Abrasion, left knee, initial encounter; X58.XXXA Exposure to other specified factors, initial encounter; M17.12 Unilateral primary osteoarthritis, left knee
CPT/HCPCS: 73502; 73562

== ENCOUNTER 2023-09-04 11:00 | Outpatient (RCR) | payer MEDICARE, MEDICAID, SELFPAY ==
--- NOTE | 2023-07-30 13:34 | OPREHPOC ---
Outpatient Therapy Plan of Care This is a Multidisciplinary Plan of Care that may contain components documented by all disciplines (PT, OT, and ST.) PT Problem 1 PT Problem #1 Knowledge Deficit PT Goal 1 Goal 1* indep with HEP PT Problem 2 PT Problem #2 Pain PT Goal 1 Goal 1* pt report pain at worst rating of 5/10 2* pt report walking tolerance of 10 minutes PT Problem 3 PT Problem #3 Impaired Flexibility PT Goal 1 Goal increase flexibility of hamstring, to improve trunk position with supine SLR: 1* R 60' 2* L 50' 3* pt stand with trunk in neutral position/ not flexion PT Problem 4 PT Problem #4 Impaired Strength PT Goal 1 Goal 1* pt able to perform 20 reps of mat strengthening exercises 2* pt able to perform 10 reps of standing bilateral ankle PF without UE support
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
--- NOTE | 2023-08-15 10:56 | PCPTNOTE ---
Pt. canceled 08/15/23 appointment as her transportation was unavailable.
--- NOTE | 2023-08-22 13:11 | PCPTNOTE ---
Pt. did not show for 08/22/23 appointment.
--- NOTE | 2023-09-02 07:38 | PCPTNOTE ---
Pt. canceled 09/01/23 appointment due to transportation.
--- NOTE | 2023-09-04 11:23 | PTOPDC ---
Assessment and note entered by Cindy Gracia, PT Evaluation Information Assessment Status Discharge Diagnosis L hip trochanteric bursitis,pain L knee, other chronic pain Onset June 2023 Subjective Information am doing better; got a shot in L knee few days ago is doing all of her usual activities; walking is limited due to COPD and shortness of breath, pushing the cart at the store helps; Reported Pain Level Pain Score Self Report Additional Pain Score Comments pain range in the past week 1-10; L lateral hip- -sore, like it was hit; reported walking tolerance 30 minutes with home activity and shopping; Assessment PT Clinical Summary Fide has received 5 PT sessions. Compared to the initial evaluation: pain has decreased from 6-7/10 to 1-/10; reported walking tolerance improved from 6 minutes to 30 minutes; increased flexibility of hamstrings, with improved standing position; increase strength of LE; some tenderness with palpation over L lateral hip and ITB; and education completed for HEP. The goals were partially met. Discharge PT services. She is to continue with her home exercise program. Plan of Care PT Services Indicated No
== END 2023-09-04 11:40 | disposition home or self-care (01) ==
LOC: ANHPT 11:00
PROVIDERS: PCP Family Medicine; Visit Provider Orthopaedic Surgery
DX: M70.62 Trochanteric bursitis, left hip (principal); M25.562 Pain in left knee; G89.29 Other chronic pain
CPT/HCPCS: 97110; 97162; 97530; 99199

== ENCOUNTER 2023-11-05 08:53 | Outpatient (CLI) | payer MEDICARE, MEDICAID, SELFPAY ==
--- NOTE | ~2023-11-05 | CT_ITS ---
Clinical Indication: Small cell lung carcinoma CT Scan of the Chest with Contrast: Technique: Contiguous sections were acquired throughout the chest after intravenous administration of 75 cc of Omnipaque 350. Dose reduction technique was used on this scan by utilizing automated exposu re control and iterative reconstruction technique. The dose-length product (DLP) was 170.44 mGy-cm. COMPARISON: 05/14/2023 Findings: There is no evidence of any significant mediastinal, hilar or axillary lymphadenopathy. There is no f illing defect in the pulmonary arterial tree to suggest pulmonary embolus. There is no evidence of ao rtic dissection or aneurysm. Small pericardial effusion present.. There are atherosclerotic calcifica tions of the aorta and coronary arteries. No pleural effusions. Severe emphysema present. No pulmonary nodule evident. Images through the upper abdomen reveal no abnormalities. Impression: No evidence for active malignancy or metastatic disease. Severe emphysema. Small pericardial effusion. Reviewed, dictated and finalized at [facility]. ECT DIRECTOR Impression: No evidence for active malignancy or metastatic disease. Severe emphysema. Small pericardial effusion.
[2023-11-05 09:13] LABS: Estimated Glomerular Filt Rate 49
== END 2023-11-05 08:54 | disposition home or self-care (01) ==
PROVIDERS: PCP Family Medicine; Visit Provider Internal Medicine Hematology & Oncology
DX: C34.90 Malignant neoplasm of unspecified part of unspecified bronchus or lung (principal); J43.9 Emphysema, unspecified; I31.39 Other pericardial effusion (noninflammatory)
CPT/HCPCS: 71260; Q9967

== ENCOUNTER 2023-11-12 12:41 | Outpatient (CLI) | payer MEDICARE, MEDICAID, SELFPAY ==
[2023-11-12 12:59] LABS: Basophils Absolute Auto 0.1 K/mm3 (0.0-0.1); Basophils Percent Auto 0.9 % (0.2-1.2); Eosinophils Absolute Auto 0.1 K/mm3 (0-0.3); Eosinophils Percent Auto 2.2 % (0-4.4); Hematocrit 46.6 % (37.0-47.0); Hemoglobin 15.1 g/dL (12.0-15.0); Immature Granulocyte Absolute 0.01 K/mm3 (0.00-0.031); Immature Granulocyte Percent A 0.2 % (0-0.5); Lymphocytes Absolute Auto 2.13 K/mm3 (0.9-3.2); Lymphocytes Percent Auto 36.9 % (18.3-44.2); Mean Corpuscular HGB Conc 32.4 g/dl (32-36); Mean Corpuscular Hemoglobin 32.5 pg (26-34); Mean Corpuscular Volume 100.2 fl (80-100); Mean Platelet Volume 9.7 fl (7.4-10.4); Monocytes Absolute Auto 0.6 K/mm3 (0.1-0.6); Neutrophils Absolute Auto 2.9 K/mm3 (1.3-6.7); Neutrophils Percent Auto 49.8 % (45.5-73.1); Platelet Count Result 202 k/mm3 (150-375); Red Blood Count 4.65 M/mm3 (4.2-5.4); Red Cell Distribution Width 12.7 % (11.5-14.5); White Blood Count 5.8 K/mm3 (4.5-10.0)
[2023-11-12 13:04] LABS: Blood Urea Nitrogen 15 mg/dL (8-26); Carbon Dioxide 27 mmol/L (22-30); Chloride 101 mmol/L (98-109); Estimated Glomerular Filt Rate > 60; Glucose 96 mg/dL (70-105); Ionized Calcium (POC) 1.08 mmol/L (1.11-1.31); Potassium 4.2 mmol/L (3.5-4.9); Sodium 139 mmol/L (138-146)
[2023-11-12 16:36] LABS: Alanine Aminotransferase 50 U/L (6-35); Albumin Level 4.1 g/dL (3.5-5.1); Alkaline Phosphatase 119 U/L (38-126); Anion Gap 10 mmol/L (8-16); Aspartate Amino Transferase 68 U/L (14-36); Bilirubin,Total 0.8 mg/dL (0.2-1.3); Blood Urea Nitrogen 14 mg/dL (7-17); Carbon Dioxide 26 mmol/L (22-30); Chloride 100 mmol/L (98-107); Estimated Glomerular Filt Rate > 60; Glucose 95 mg/dL (65-110); Potassium 4.3 mmol/L (3.4-5.0); Sodium 136 mmol/L (137-145)
== END 2023-11-12 12:42 | disposition home or self-care (01) ==
LOC: ANHLAB 12:44
PROVIDERS: PCP Family Medicine; Visit Provider Internal Medicine Hematology & Oncology
DX: C34.90 Malignant neoplasm of unspecified part of unspecified bronchus or lung (principal)
CPT/HCPCS: 36415; 80047; 80053; 85025

== ENCOUNTER 2024-01-30 07:44 | Outpatient (CLI) | payer MEDICARE, MEDICAID, SELFPAY ==
--- NOTE | ~2024-01-30 | NM_ITS ---
EXAMINATION: NM andi stress w perfusion DATE: 01/30/2024 14:47 INDICATION: Other chest pain. TECHNIQUE: Rest images were obtained following intravenous administration of 10.6 mCi Tc99m tetrofosm in (Myoview). The patient was infused intravenously with Lexiscan (regadenoson). Then, 30.5 mCi Tc99m tetrofosmin (Myoview) was administered intravenously, and stress images were obtained. Data was faith nstructed into short axis and horizontal and vertical long axis SPECT images. Gated SPECT images were also obtained. COMPARISON: None. FINDINGS: There is no definite reversible or fixed perfusion abnormality to suggest ischemia or infar ction. There is no segmental wall motion abnormality. Left ventricular ejection fraction measures 6 5%. IMPRESSION: 1. No definite ischemia or infarct. 2. Normal left ventricular ejection fraction measuring 65%. Reviewed, dictated and finalized at location A.
--- NOTE | 2024-01-30 08:36 | EST_ITS ---
Patient Info Name: Fide Hayes Age: 68 years : 1955 Gender: Female Ht: 63 in Wt: 162 lbs BSA: 1.83 m2 HR: 82 bpm BP: 164 / 90 mmHg Heart Rhythm: Sinus Rhythm Exam Date: 01/30/2024 8:52 AM Exam Location: Echo Lab Patient Status: Outpatient Admit Date: 01/30/2024 Staff Ordering Physician: Magan Ruiz MD Attending Provider: Magan Ruiz MD Exercise Technologist: Moriah Almonte CT Exercise Physician: Jorge Hagen DO Exam Type: CA stress andi w NM Study Info Indications R07.89 - Other chest pain A regadenoson stress test was performed. Summary 1. 1. Negative lexiscan stress test for ischemic ST changes by ECG criteria. 2. 2. Baseline hypertension. 3. 3. Nuclear scan to follow and will be reported separately. Please correlate with it. 4. 4. Patient informed of the above results. Protocol: Lexiscan Stress ECG Details Stage: REST Duration (min): 1 min : 0 sec HR (bpm): 85 SBP (mmHg): 164 DBP (mmHg): 90 Stage: REST Duration (min): 12 min : 16 sec HR (bpm): 86 SBP (mmHg): 164 DBP (mmHg): 90 Stage: STAGE 1 Duration (min): 0 min : 59 sec HR (bpm): 96 SBP (mmHg): 180 DBP (mmHg): 105 Stage: RECOVERY Duration (min): 1 min : 0 sec HR (bpm): 98 SBP (mmHg): 180 DBP (mmHg): 105 Stage: RECOVERY Duration (min): 2 min : 0 sec HR (bpm): 99 SBP (mmHg): 180 DBP (mmHg): 105 Stage: RECOVERY Duration (min): 3 min : 0 sec HR (bpm): 89 SBP (mmHg): 158 DBP (mmHg): 97 Stage: RECOVERY Duration (min): 3 min : 38 sec HR (bpm): 90 SBP (mmHg): 158 DBP (mmHg): 97 Rest HR: 86 bpm Peak HR: 100 bpm Rest Sys BP: 164 mmHg Peak Sys BP: 180 mmHg Max Pred HR: 150 bpm % Max Pred HR: 67 % Target HR: 128 bpm Max RPP: 18,000 bpm*mmHg Termination Reason: Completed protocol Cardiac Symptoms: Shortness of breath Total Time: 1 min : 0 sec Rest Power BP: 90 mmHg Peak Power BP: 105 mmHg Total Dose: 0.4 mg Resting ECG Sinus rhythm. Stress ECG No ST changes. Arrhythmias None. Report Signatures
== END 2024-01-30 07:45 | disposition home or self-care (01) ==
PROVIDERS: PCP Family Medicine; Visit Provider Family Medicine
DX: R07.89 Other chest pain (principal); R06.02 Shortness of breath; Z01.810 Encounter for preprocedural cardiovascular examination
CPT/HCPCS: 78452; 93017; A9502

== ENCOUNTER 2024-03-02 08:08 | Outpatient (CLI) | payer MEDICARE, MEDICAID, SELFPAY ==
--- NOTE | ~2024-03-02 | CT_ITS ---
EXAMINATION: CT BRAIN W/O DATE: 03/02/2024 08:56 INDICATION: Amnesia. History of breast and lung cancer. Family history of dementia. TECHNIQUE: Computed tomography (CT) of the head was performed without and with 100 cc Omnipaque 350 i ntravenous contrast. The dose-length product was 1199.14 mGy-cm. Automated exposure control and itera tive reconstruction technique were employed. COMPARISON: No prior studies for comparison. FINDINGS: Mild generalized atrophy. There are scattered moderate periventricular and subcortical whit e matter changes, most likely related to small vessel ischemic disease (microangiopathy). There is in tracranial atherosclerosis. There is no abnormal contrast enhancement. No ventriculomegaly or midline shift. Midline sagittal images demonstrate a normal corpus callosum, c raniovertebral junction and sella turcica. Basilar cisterns are patent. Paranasal sinuses and mastoids are pneumatized. No depressed skull fractures. IMPRESSION: 1. No acute intracranial abnormality. Reviewed, dictated and finalized at location B.
[2024-03-02 08:39] LABS: Estimated Glomerular Filt Rate 55
== END 2024-03-02 08:09 ==
LOC: MICIMG 08:09
PROVIDERS: PCP Internal Medicine Hematology & Oncology; Visit Provider Nurse Practitioner Family
DX: R41.3 Other amnesia (principal)
CPT/HCPCS: 70470; Q9967

== ENCOUNTER 2024-03-03 14:42 | Outpatient (CLI) | payer MEDICARE, MEDICAID, SELFPAY ==
[2024-03-03 15:15] VITALS: PULSE 85; O2SAT 90
[2024-03-03 15:17] VITALS: PULSE 103; O2SAT 87
[2024-03-03 15:19] VITALS: PULSE 104; O2SAT 86
[2024-03-03 15:22] VITALS: PULSE 104; O2SAT 91
--- NOTE | 2024-03-03 15:30 | HOMEO2EVAL ---
Evaluation was performed at [facility] Home Oxygen Evaluation RC: Home Oxygen (O2) Evaluation Start: 03/03/24 15:28 Freq: Status: Active Protocol: RPE Activity Type Activity Date Activity User E-sign Co-sign Detail Recorded Client Recorded Date Recorded By Document 03/03/24 15:15 KRM [id number] 03/03/24 15:30 KRM Document 03/03/24 15:17 [email or web address] [email or web address] 03/03/24 15:30 KRM Document 03/03/24 15:19 [email or web address] [email or web address] 03/03/24 15:30 KRM Document 03/03/24 15:22 [email or web address] [email or web address] 03/03/24 15:30 KRM 03/03/24 03/03/24 03/03/24 15:15 15:17 15:19 Home O2 Evaluation [Oxygen] -Test Phase Resting Exercise Exercise -Oxygen Delivery Room Air Room Air Nasal Cannula -Oxygen Flow Rate (L/min) 1 [Pulse Oximetry] -Pulse Oximetry (90-100 %) 90 87 L 86 L [Pulse Rate] -Pulse Rate (60-100 beats/min) 85 103 H 104 H [Evaluation] -Activity Tolerance Fair Fair [Exercise] -Ambulation Distance (feet) -Ambulation Distance (meters) [Comments] -Home Oxygen Evaluation Comments [Charges] -Evaluation Charges 03/03/24 15:22 Home O2 Evaluation [Oxygen] -Test Phase Exercise -Oxygen Delivery Nasal Cannula -Oxygen Flow Rate (L/min) 2 [Pulse Oximetry] -Pulse Oximetry (90-100 %) 91 [Pulse Rate] -Pulse Rate (60-100 beats/min) 104 H [Evaluation] -Activity Tolerance Fair [Exercise] -Ambulation Distance (feet) 400 -Ambulation Distance (meters) 121.91 [Comments] -Home Oxygen Evaluation Comments 2lpm with activity. [Charges] -Evaluation Charges O2 Evaluation by Pulmonary
== END 2024-03-03 14:43 | disposition home or self-care (01) ==
LOC: ANHPFT 14:43
PROVIDERS: PCP Internal Medicine Hematology & Oncology; Visit Provider Internal Medicine Critical Care Medicine
DX: J44.9 Chronic obstructive pulmonary disease, unspecified (principal)
CPT/HCPCS: 94618

== ENCOUNTER 2024-03-12 13:21 | Outpatient (CLI) | payer MEDICARE, MEDICAID, SELFPAY ==
--- NOTE | 2024-03-15 14:04 | WPDPFTINT ---
PFT Procedure Performed PFT Procedure Performed Spirometry with Pre/Post Bronchodilator Plethysmography (Lung Vol) Diffusing Cap (DLCO) Flow Vol Loop PFT Interpretation This is a pulmonary function test with pre and post-bronchodilator spirometry, plethysmography and diffusing capacity. The test was performed and results interpreted in accordance with the 2019 and 2005 ATS/ERS Task Force guidelines respectively using the Global Lung Function Initiative-2012 reference equations. Patient demonstrated good effort and cooperation. Reproducibility criteria were met. The quality of the pre bronchodilator spirometry maneuver was Grade A and post bronchodilator spirometry maneuver was Grade A. of note, patient was unable to perform a 2nd plethysmography maneuver. Findings: Spirometry: There is decreased maximal expiratory airflow at all lung volumes with concave expiratory flow tracing. The contour the inspiratory flow tracing is normal. The pre bronchodilator FVC is 2.70 L, 102% predicted. The pre bronchodilator FEV1 is 1.01 L, 49% predicted. The pre bronchodilator FEV1: FVC ratio is 37%. The post bronchodilator FVC is 2.75 L, representing a 2% increase. The post bronchodilator FEV1 is 1.03 L, representing a 2% increase. The post bronchodilator FEV1: FVC ratio is 37%. Plethysmography: The total lung capacity is 5.95 L, 126% predicted. The functional residual capacity is 4.11 L, 153% predicted. The residual volume is 3.25 L, 157% predicted. The residual volume: Total lung capacity ratio is 55%. Diffusing capacity: The diffusing capacity unadjusted for hemoglobin and carboxyhemoglobin is 6.1, 31% predicted. The diffusing capacity adjusted for alveolar volume is 2.07, 47% predicted. Impression: There is a severe obstructive abnormality. There is no significant improvement after inhaling a single dose of albuterol. The increase in residual volume to total lung volume ratio is consistent with hyperinflation from an obstructive abnormality. The diffusing capacity unadjusted for hemoglobin and carboxyhemoglobin is severely decreased and remains moderately decreased when adjusted for alveolar volume. There are no prior studies for comparison
== END 2024-03-12 13:22 | disposition home or self-care (01) ==
LOC: ANHPFT 13:22
PROVIDERS: PCP Family Medicine; Visit Provider Internal Medicine Critical Care Medicine
DX: J44.9 Chronic obstructive pulmonary disease, unspecified (principal)
CPT/HCPCS: 94060; 94726; 94729

== ENCOUNTER 2024-05-12 09:16 | Outpatient (CLI) | payer MEDICARE, MEDICAID, SELFPAY ==
--- NOTE | ~2024-05-12 | CT_ITS ---
Clinical Indication: Lung cancer CT Scan of the Chest with Contrast: Technique: Contiguous sections were acquired throughout the chest after intravenous administration of 75 cc of Omnipaque 350. Dose reduction technique was used on this scan by utilizing automated exposu re control and iterative reconstruction technique. The dose-length product (DLP) was 240.29 mGy-cm. COMPARISON: 11/05/2023 Findings: There is no evidence of any significant mediastinal, hilar or axillary lymphadenopathy. There is no f illing defect in the pulmonary arterial tree to suggest pulmonary embolus. There is no evidence of ao rtic dissection or aneurysm. No pleural effusions. Small pericardial effusion present. There is advanced emphysema. Stable curvilinear densities in the posterior medial right upper lobe, p ossibly posttreatment change. No suspicious pulmonary nodule. Images through the upper abdomen reveal no abnormalities. Impression: Severe emphysema. Stable scarring or possibly post treatment change at the posterior medial right upp er lobe. No evidence for active malignancy or metastatic disease. Small pericardial effusion. Reviewed, dictated and finalized at location M. Impression: Severe emphysema. Stable scarring or possibly post treatment change at the post erior medial right upper lobe. No evidence for active malignancy or metastatic disease. Small pericardial effusion.
[2024-05-12 09:49] LABS: Estimated Glomerular Filt Rate 55
[2024-05-12 10:21] LABS: Basophils Percent Auto 0.5 % (0.2-1.2); Eosinophils Absolute Auto 0.1 K/mm3 (0-0.3); Hematocrit 45.7 % (37.0-47.0); Immature Granulocyte Absolute 0.01 K/mm3 (0.00-0.031); Immature Granulocyte Percent A 0.2 % (0-0.5); Lymphocytes Absolute Auto 1.85 K/mm3 (0.9-3.2); Lymphocytes Percent Auto 31.4 % (18.3-44.2); Mean Corpuscular HGB Conc 32.8 g/dl (32-36); Mean Corpuscular Hemoglobin 32.6 pg (26-34); Mean Corpuscular Volume 99.3 fl (80-100); Mean Platelet Volume 9.4 fl (7.4-10.4); Monocytes Absolute Auto 0.6 K/mm3 (0.1-0.6); Monocytes Percent Auto 9.7 % (2.6-8.5); Neutrophils Absolute Auto 3.3 K/mm3 (1.3-6.7); Neutrophils Percent Auto 56.2 % (45.5-73.1); Platelet Count Result 204 k/mm3 (150-375); Red Cell Distribution Width 12.8 % (11.5-14.5); White Blood Count 5.9 K/mm3 (4.5-10.0)
[2024-05-12 10:41] LABS: Alanine Aminotransferase 29 U/L (6-35); Albumin Level 4.2 g/dL (3.5-5.1); Alkaline Phosphatase 110 U/L (38-126); Anion Gap 10 mmol/L (4-12); Aspartate Amino Transferase 50 U/L (14-36); Bilirubin,Total 0.8 mg/dL (0.2-1.3); Blood Urea Nitrogen 15 mg/dL (7-17); Calcium 8.9 mg/dL (8.4-10.2); Carbon Dioxide 29 mmol/L (22-30); Chloride 98 mmol/L (98-107); Estimated Glomerular Filt Rate > 60; Glucose 110 mg/dL (65-110); Potassium 4.2 mmol/L (3.4-5.0); Sodium 137 mmol/L (137-145)
[2024-05-14 06:38] LABS: CA 15-3 25 U/mL (<32)
== END 2024-05-12 09:17 | disposition home or self-care (01) ==
PROVIDERS: PCP Family Medicine; Visit Provider Internal Medicine Hematology & Oncology
DX: C34.90 Malignant neoplasm of unspecified part of unspecified bronchus or lung (principal); C50.412 Malignant neoplasm of upper-outer quadrant of left female breast; Z17.0 Estrogen receptor positive status [ER+]; J43.9 Emphysema, unspecified
CPT/HCPCS: 36415; 71260; 80053; 85025; 86300; Q9967

== ENCOUNTER 2024-05-28 08:36 | Outpatient (CLI) | payer MEDICARE, MEDICAID, SELFPAY ==
--- NOTE | 2024-06-21 10:29 | WPDSLEEPSTUD ---
Sleep Study Date of Study: 05/28/24 Ordering Provider: Tonie Schulz MD Interpreting Physician: Caity Keene, Sleep Study Type: Polysomnogram Height: 1.57 m Weight: 73.936 kg Body Mass Index: 29.8 Neck Circumference (inches): 15.5 [place]: 3 Reason for Sleep Study Snoring, daytime hypersomnia Sleep History The patient is a 68-year-old female that had a sleep study ordered for evaluation of sleep apnea.? The patient denies awakening from sleep short of breath.? She rarely awakens at night with heartburn, belching or cough.? She denies snoring.? She rarely has trouble sleeping when she has a cold.? She denies waking up gasping for air throughout the night.? She denies sweating excessively night.? She denies having heart palpitations or irregular heartbeats during the night.? She occasionally falls asleep during the day but never while driving.? She denies sleep paralysis, cataplexy and hypnagogic/hypnopompic hallucinations.? She denies having trouble at school or work due to sleepiness. ?She denies feeling afraid of going to sleep.? She denies having nightmares.? She occasionally remembers her dreams.? She denies having thoughts racing through her mind.? She denies feeling sad, depressed or anxious.? She denies having muscular tension.? She denies noticing parts of her body jerk.? She denies kicking during the night.? She denies having crawling and aching feelings in her legs during the night and denies having leg pain .? She denies grinding her teeth during sleep he rarely awakens morning jaw she is rarely bothered by pain during the day and never wake pain during the day.? She occasionally wakes up with joint pain.? She denies waking up with sore or achy muscles.? She denies waking up with pain and was or other joints. She goes to bed at 8:00 p.m. on weekdays and 3 a.m. on the weekends.? It takes her 30-60 minutes to fall asleep.? She wakes up once throughout the night to urinate and is able to fall back asleep within 10 minutes.? She wakes up 80 on both weekdays and weekends.? He typically gets 6-8 hours of sleep per night.? She will stay in bed for 30 minutes after waking up in the morning.? She currently lives with her adult son.? She denies consuming any caffeinated beverages within 2 hours of bedtime.? She denies engaging in physical exercise before bedtime.? She will watch television before falling asleep.? She will take naps in the afternoon or the evening and they are refreshing. She consumes 22 oz of a caffeinated beverage per day. [facility] Past Medical History Medical History Chlamydia 1971 Chronic pain of left knee COPD (chronic obstructive pulmonary disease) Dyslipidemia Emphysema lung Gonorrhea 1972 History of bilateral breast cancer History of rheumatic fever as a child Hypothyroidism IBS (irritable bowel syndrome) Lactose intolerance Osteoarthritis Osteopenia Pre-diabetes Seasonal allergies Small cell lung cancer, right upper lobe Surgical History Surgical History History of bilateral mastectomy 2003 History of left knee surgery History of tubal ligation Hx of cholecystectomy (~1984) S/P appendectomy S/P cubital tunnel release (~02/2022) Left [place] teeth removed Family History Family History Mother Diabetes mellitus Dementia Breast cancer Cerebrovascular accident Thyroid disease Sibling Diabetes mellitus Son Diabetes mellitus Father Hypertension Social History Social History Smoking packs per day: 1.5 Smoking cigarettes per day: 30.0 Years smoked: 53 Smoking pack-years: 79.50 Smoking status: Former smoker Tobacco type: cigarettes Second hand tobacco smoke exposure: Yes Smoking end date: 07/05/18 Alcohol intake: never Substance use: ne
[2024-06-21 20:04] VITALS: BMI 29.8
== END 2024-05-29 06:58 | disposition home or self-care (01) ==
LOC: ANHCSM 08:44
PROVIDERS: PCP Family Medicine; Visit Provider Internal Medicine Critical Care Medicine
DX: G47.34 Idiopathic sleep related nonobstructive alveolar hypoventilation (principal); F39 Unspecified mood [affective] disorder; Z99.89 Dependence on other enabling machines and devices
CPT/HCPCS: 95810

== ENCOUNTER 2024-06-24 10:00 | Outpatient (CLI) | payer MEDICARE, MEDICAID, SELFPAY | END 2024-06-24 10:01 | disposition home or self-care (01) | LOC: ANHLAB 10:02 | PROVIDERS: PCP Family Medicine; Visit Provider Internal Medicine Critical Care Medicine | DX: C34.11 Malignant neoplasm of upper lobe, right bronchus or lung (principal) | CPT/HCPCS: 36415; 82728 ==

== ENCOUNTER 2024-12-15 07:30 | Outpatient (CLI) | payer MEDICARE, MEDICAID, SELFPAY ==
--- NOTE | ~2024-12-15 | CT_ITS ---
Clinical Indication: Lung cancer CT Scan of the Chest with Contrast: Technique: Contiguous sections were acquired throughout the chest after intravenous administration of 75 cc of Omnipaque 350. Dose reduction technique was used on this scan by utilizing automated exposu re control and iterative reconstruction technique. The dose-length product (DLP) was 212.74 mGy-cm. COMPARISON: 05/12/2024 Findings: There is no evidence of any significant mediastinal, hilar or axillary lymphadenopathy. There is no f illing defect in the pulmonary arterial tree to suggest pulmonary embolus. There is no evidence of ao rtic dissection or aneurysm. No pleural effusions. Small pericardial effusion present. Severe emphysema present. Stable probable postinflammatory scarring at the posterior medial right upp er lobe. Images through the upper abdomen reveal no abnormalities. Impression: No evidence for active malignancy or metastatic disease. Severe emphysema with probable scarring at the posterior medial right upper lobe. Small pericardial effusion. Reviewed, dictated and finalized at [facility]. 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 Severe emphysema with probable scarring at the posterior medial right upper lob e. Small pericardial effusion.
[2024-12-15 07:58] LABS: Estimated Glomerular Filt Rate 55
== END 2024-12-15 07:31 | disposition home or self-care (01) ==
PROVIDERS: PCP Family Medicine; Visit Provider Internal Medicine Hematology & Oncology
DX: C34.90 Malignant neoplasm of unspecified part of unspecified bronchus or lung (principal); I31.39 Other pericardial effusion (noninflammatory); J43.9 Emphysema, unspecified
CPT/HCPCS: 71260; Q9967

== ENCOUNTER 2024-12-29 13:41 | Outpatient (CLI) | payer MEDICARE, MEDICAID, SELFPAY ==
[2024-12-29 13:58] LABS: Basophils Percent Auto 0.5 % (0.2-1.2); Eosinophils Absolute Auto 0.1 K/mm3 (0-0.3); Eosinophils Percent Auto 1.3 % (0-4.4); Hematocrit 43.2 % (37.0-47.0); Hemoglobin 14.5 g/dL (12.0-15.0); Immature Granulocyte Absolute 0.02 K/mm3 (0.00-0.031); Immature Granulocyte Percent A 0.2 % (0-0.5); Lymphocytes Absolute Auto 1.36 K/mm3 (0.9-3.2); Lymphocytes Percent Auto 15.7 % (18.3-44.2); Mean Corpuscular HGB Conc 33.6 g/dl (32-36); Mean Corpuscular Hemoglobin 32.7 pg (26-34); Mean Corpuscular Volume 97.5 fl (80-100); Mean Platelet Volume 9.3 fl (7.4-10.4); Monocytes Absolute Auto 0.6 K/mm3 (0.1-0.6); Monocytes Percent Auto 6.7 % (2.6-8.5); Neutrophils Absolute Auto 6.6 K/mm3 (1.3-6.7); Neutrophils Percent Auto 75.6 % (45.5-73.1); Platelet Count Result 216 k/mm3 (150-375); Red Blood Count 4.43 M/mm3 (4.2-5.4); Red Cell Distribution Width 12.8 % (11.5-14.5); White Blood Count 8.7 K/mm3 (4.5-10.0)
[2024-12-29 14:00] LABS: Blood Urea Nitrogen 15 mg/dL (8-26); Carbon Dioxide 23 mmol/L (22-30); Chloride 102 mmol/L (98-109); Estimated Glomerular Filt Rate 55; Glucose 148 mg/dL (70-105); Ionized Calcium (POC) 1.16 mmol/L (1.11-1.31); Potassium 3.4 mmol/L (3.5-4.9); Sodium 139 mmol/L (138-146)
--- OUTSIDE RECORDS SUMMARY | 2024-12-29 15:29 | XMS_ITS | Encounter Summary ---
Author Organization [facility] Address 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 Gender Identity Not on file Sexual Orientation Not on file documented as of this encounter Plan of Treatment Upcoming Encounters Date Type Department Care Team ([facility] Contact Info) Description 09/01/2025 2:30 PM CDT Office Visit [facility] Oncology and Hematology - [place] [address] [facility] [address] [place] [address] Ricardo Cano MD [address] [facility] [address] [place] [address] documented as of this encounter Visit Diagnoses Diagnosis Malignant neoplasm of breast (female), unspecified site (CMS/HCC) Malignant neoplasm of breast (female), unspecified site documented in this encounter Care Teams Student Ministry Pastor Relationship Specialty Start Date End Date Garrick Ruiz MD [address] [place] [id number] PCP - General Family Practice 01/08/22 documented as of this encounter
--- OUTSIDE RECORDS SUMMARY | 2024-12-29 15:29 | XMS_ITS | Clinical Summary ---
Author Organization [facility] [address] [facility] Address [address] [place] [address] Care Team Providers Care Order Processing Specialist Name Role Phone Unavailable Primary Care Provider Unavailabl e Allergies No known active allergies Medications albuterol HFA (PROVENTIL HFA,VENTOLIN HFA,PROAIR HFA) 90 mcg/actuation inhaler Inhale 2 puffs every 6 (six) hours as needed 5 Active multivitamin tablet Take 1 tablet by mouth daily Active cetirizine (ZyrTEC) 10 mg tablet Take 10 mg by mouth daily 1 Active clotrimazole-betam ethasone (LOTRISONE) cream Apply topically 2 (two) times a day 45 g 1 1 Active montelukast (SINGULAIR) 10 mg tablet Take 1 tablet (10 mg total) by mouth nightly 90 tablet 1 1 Active budesonide-formote roL (SYMBICORT) 160-4.5 mcg/actuation inhaler Inhale 2 puffs 2 (two) times a day 1 Active acetaminophen (TYLENOL) 325 mg tablet Take 650 mg by mouth every 6 (six) hours as needed for pain Active fluticasone propionate (FLONASE) 50 mcg/actuation nasal spray Administer 1 spray into each nostril daily Active ketoconazole (NIZORAL) 2 % shampoo Apply topically 2 (two) times a week Apply to damp skin, lather, leave on 5 minutes, and rinse Active nystatin powder Apply topically 4 (four) times a day Active polycarbophil (FIBERCON) 625 mg tablet Take 625 mg by mouth daily Active rosuvastatin (CRESTOR) 10 mg tabletIndications: Mixed hyperlipidemia Take 1 tablet (10 mg total) by mouth daily 90 tablet 1 1 Active Spiriva with HandiHaler 18 mcg per inhalation capsule Place 1 puff (1 capsule total) into inhaler and inhale daily 90 capsule 1 1 Active Euthyrox 25 mcg tabletIndications: Acquired hypothyroidism Take 1 tablet by mouth once daily 90 tablet 1 Active Active Problems Problem Noted Date Diagnosed Date Rash 05/20/2021 Assessment & Plan (05/20/2021 11:35 PM CDT): Looked like purpura vs dermatitis -- Check labs. Monitor. Call if sxs worse or don't resolve. Obesity (BMI 30-39.9) 05/16/2021 Assessment & Plan (05/16/2021 1:06 PM CDT): Obesity is unchanged. Discussed the patient's BMI. The BMI is above average. BMI management plan is completed. BMI Follow-up includes: nutrition counseling, exercise counseling and education provided. BMI 33.0-33.9,adult 05/16/2021 Assessment & Plan (05/16/2021 1:06 PM CDT): Obesity is unchanged. Discussed the patient's BMI. The BMI is above average. BMI management plan is completed. BMI Follow-up includes: nutrition counseling, exercise counseling and education provided. Tinea cruris 04/22/2021 Assessment & Plan (04/22/2021 7:22 PM CDT): Keep area clean and dry. Use cool setting supervisor hairspring fabrication when getting out of the shower. Diflucan x 3 doses Lotrisone prn. Followup if sxs worsen or don't resolve. Neck pain 03/05/2021 Assessment & Plan (05/20/2021 11:34 PM CDT): Improving with PT. Will continue to monitor. Assessment & Plan (03/05/2021 10:45 PM CDT): This is a significant, separately identifiable problem that was evaluated and managed on the same day as the wellness exam Persistent neck pain with some numbness down the arm although does not always seem to be consistent today it is more the 4th and 5th finger wears last time there was multiple areas of numbness. Encouraged to consider physical therapy to start with and if her symptoms persist through physical therapy may benefit from an MRI of the C-spine patient is in agreement physical therapy order provided. Acquired hypothyroidism 03/05/2021 Assessment & Plan (04/22/2021 7:20 PM CDT): Levothyroxine has normalized TSH Assessment & Plan (03/05/2021 10:44 PM CDT): This is a significant, separately identifiable problem that was evaluated and managed on the same day as the wellness exam New diagnosis of hypothyroidism. Will start levothyroxine 25 mcg 1 daily recheck in 4 weeks for stability. Tinnitus of both ears 03/05/2021 Assessment & Plan (03/05/2021 10:39 PM CDT): Decreased hearing as well as a humming in both ears. Has never seen an ENT so will make referral as probably needs to see the ENT and wine consultant. H/O bilateral mastectomy 02/18/2021 Assessment & Plan (04/22/2021 7:20 PM CDT): S/pbilateral mastectomy / breast cancer Assessment & Plan (02/18/2021 9:33 AM CDT): History double mastectomy. No longer needs screening mammograms Hyperlipidemia 02/18/2021 Assessment & Plan (05/20/2021 11:34 PM CDT): Encouraged patient to follow fat/low chol diet like the Mediterranean diet. Increase good fats in the diet. Increase exercise. Monitor labs as needed. Continue statin and Coq10 Assessment & Plan (04/22/2021 7:20 PM CDT): Encouraged patient to follow fat/low chol diet like the Mediterranean diet. Increase good fats in the diet. Increase exercise. Monitor labs as needed. Continue statin. Monitor LFTs Assessment & Plan (03/05/2021 10:44 PM CDT): This is a significant, separately identifiable problem that was evaluated and managed on the same day as the wellness exam Encouraged patient to follow fat/low chol diet like the Mediterranean diet. Increase good fats in the diet. Increase exercise. Monitor labs as needed. Reviewed benefit of starting statin Reviewed risks, benefit, alternatives, side effects and proper use. Start Crestor. Recheck LFTs in 4 weeks. Assessment & Plan (02/18/2021 9:38 AM CDT): Encouraged patient to follow fat/low chol diet like the Mediterranean diet. Increase good fats in the diet. Increase exercise. Monitor labs as needed. Pre-diabetes 02/18/2021 Assessment & Plan (04/22/2021 7:20 PM CDT): Pre-diabetes/hyperglycemia is a precursor to Dm. Stressed importance of working on diet (decrease your simple sugars and one carbohydrate with each meal) and increase you exercise to achieve weight loss and this will help prevent you from progressing to diabetes. Assessment & Plan (03/05/2021 10:42 PM CDT): Pre-diabetes/hyperglycemia is a precursor to Dm. Stressed importance of working on diet (decrease your simple sugars and one carbohydrate with each meal) and increase you exercise to achieve weight loss and this will help prevent you from progressing to diabetes. Assessment & Plan (02/18/2021 9:37 AM CDT): Pre-diabetes/hyperglycemia is a precursor to Dm. Stressed importance of working on diet (decrease your simple sugars and one carbohydrate with each meal) and increase you exercise to achieve weight loss and this will help prevent you from progressing to diabetes. Fatigue 02/18/2021 Assessment & Plan (02/18/2021 9:39 AM CDT): Probably multifactorial. Check labs and followup to re-evaluate Seasonal allergies 02/18/2021 Assessment & Plan (03/05/2021 10:44 PM CDT): Continue current regimen Assessment & Plan (02/18/2021 9:43 AM CDT): Continue zyrtec and singulair. History of breast cancer 01/30/2021 Overview (01/30/2021): Stage I (T1, N0, M0) diagnosed in 2003 and had modified radical mastectomy. The tumor was ER positive, NV positive, HER-2/heidi negative. Patient had bilateral mastectomy done in 2003. She received adjuvant chemotherapy with Adriamycin Cytoxan x4 cycles and then hormonal therapy with Arimidex for 5 years duration completed in September 2009. Assessment & Plan (02/18/2021 9:31 AM CDT): S/p double mastectomy in 2003 Hepatic steatosis 01/30/2021 Overview (02/18/2021): Noted on imaging for lung cancer Assessment & Plan (04/22/2021 7:19 PM CDT): Encouraged diet, weight loss and treat co-morbidities. Assessment & Plan (02/18/2021 9:30 AM CDT): Continue to monitor imaging and LFTS> Encouraged diet, exercise and weight reduction. Nephrolithiasis 01/30/2021 Overview (01/30/2021): By imaging for cancer Malignant neoplasm of upper lobe of right lung 0 01/30/2021 Overview (02/18/2021): Limited stage small cell lung cancer. This was diagnosed in April 2019. Patient received definitive radiation therapy with chemotherapy with cisplatin and etoposide. CT chest done on December 11, 2020 showed indeterminate right lower lobe nodule likely old granulomatous disease. No evidence of relapse of disease. Plan to repeat CT scan in 6 months. Assessment & Plan (03/05/2021 10:40 PM CDT): Oncology continues to monitor closely with imaging. She is under close surveillance. Assessment & Plan (02/18/2021 9:27 AM CDT): Dr. Ricardo Cano -- [facility] in [place] manages as under close surveliance Elevated liver enzymes 01/30/2021 Assessment & Plan (04/22/2021 7:20 PM CDT): Monitor. Stable since starting crestor Assessment & Plan (03/05/2021 10:45 PM CDT): Monitor labs especially with starting the statin Assessment & Plan (02/18/2021 9:34 AM CDT): Monitor closely Chronic obstructive pulmonary disease 04/01/2013 Overview (02/18/2021): Dr. Ronni Florian -- Pulmonary with [facility] [phone] Assessment & Plan (04/22/2021 7:19 PM CDT): Continue per PUlmonary Assessment & Plan (03/05/2021 10:40 PM CDT): Continue to follow with Dr. larson. He has changed her inhalers and will continue to monitor. Assessment & Plan (02/18/2021 9:29 AM CDT): Continue spiriva and albuterol Nicotine dependence 04/01/2013 Keratosis, senilis 09/18/2011 Resolved Problems Problem Noted Date Diagnosed Date Resolved Date BMI 33.0-33.9,adult 04/09/2021 05/16/20 21 Assessment & Plan (04/09/2021 4:05 PM CDT): Obesity is unchanged. Discussed the patient's BMI. The BMI is above average. BMI management plan is completed. BMI Follow-up includes: nutrition counseling, exercise counseling and education provided. Medicare annual wellness visit, initial 03/05/2021 04/22/2021 Assessment & Plan (03/05/2021 10:44 PM CDT): Encouraged healthy lifestyle, good nutrition and exercise. Encouraged Calcium and Vitamin D and weight bearing exercise for bone health. Reviewed immunizations. Reviewed age appropirate screenings. Medicare Wellness Documentation is completed within the chart Obesity (BMI 30-39.9) 01/30/20212020 Assessment & Plan (04/22/2021 7:19 PM CDT): Obesity is unchanged. Discussed the patient's BMI. The BMI is above average. BMI management plan is completed. BMI Follow-up includes: nutrition counseling, exercise counseling and education provided. Assessment & Plan (03/05/2021 10:41 PM CDT): Obesity is unchanged. Discussed the patient's BMI. The BMI is above average. BMI management plan is completed. BMI Follow-up includes: nutrition counseling, exercise counseling and education provided. Assessment & Plan (01/30/2021 9:55 AM CDT): Obesity is unchanged. Discussed the patient's BMI. The BMI is above average. BMI management plan is completed. BMI Follow-up includes: nutrition counseling, exercise counseling and education provided. BMI 33.0-33.9,adult 01/30/2021 04/09/20 Assessment & Plan (03/05/2021 10:45 PM CDT): Obesity is unchanged. Discussed the patient's BMI. The BMI is above average. BMI management plan is completed. BMI Follow-up includes: nutrition counseling, exercise counseling and education provided. Assessment & Plan (01/30/2021 9:56 AM CDT): Obesity is unchanged. Discussed the patient's BMI. The BMI is above average. BMI management plan is completed. BMI Follow-up includes: nutrition counseling, exercise counseling and education provided. Immunizations Immunization Administration Dates Next Due Influenza, Quadrivalent, Hig h Dose, Preservative Free, Intrr 08/15/2021,08/28/2020 Influenza, Quadrivalent, Split, Intramuscular Influenza, Trivalent, High D ose, Split, Preservative Free, Intramuscular 08/26/2019,08/03/2018 Influenza, Trivalent, IM (MDV) 07/29/2017 Influenza, Trivalent, Preservative Free, Intramu scular 09/23/2016 Pfizer SARS-CoV-2 Monovalent Vaccination (12+ Yrs) PURPLE 02/05/2021,01/04/2021 Pneumococcal Conjugate PCV 13 09/04/2018 Pneumococcal Polysaccharide PPV23 08/22/2015,05/2015 Tdap 08/22/2015,08/09/2015 ZOSTER LIVE 05/17/2020 Surgical History Surgery Date Site/Laterality Comments NV LIG/TRNSXJ FLP TUBE ABDL/ VAG APPR UNI/BI Tubal Ligation - (Added by TW Conv) NV CHOLECYSTECTOMY Cholecystectomy - (Added by TW Conv) MASTECTOMY double Medical History Medical History Date Comments Malignant neoplasm of female breast (HCC) Breast cancer - s/p bilatera l mastectomy February 1004. Follows with Dr. Cindy Palacios MD, medical oncologist @ [facility] Clinic: [facility] [place], , (Added by TW Conv) Chronic obstructive pulmonar y disease (HCC) Chronic obstructive pulmonar y disease - Diagnosed 12-15 years ago. Chronic cough daily with clear sputum. Never been hospitalized for COPD exacerbation, never intubated. Written for Advair in the past but never filled bc could not afford it. (Added by TW Conv) Other hammer toe(s) (acquire d), unspecified foot Hammer toe - (Added by TW Co nv) Tinea unguium Onychomycosis of toenail - (Added by TW Conv) Personal history of other en docrine, nutritional and metabolic disease History of hyperlipi demia - (Added by TW Conv) Personal history of other di seases of the circulatory system History of mitral valve diso rder - prolapse (Added by TW Conv) Personal history of other di seases of the circulatory system History of rheumatic fever - as a child (Added by TW Conv) Allergic rhinitis Thyroid disease Family History Medical History Relation Name Comments Hypertension Father Stroke Father Stroke Syndrome - Unclear history per patient (Added by TW Conv) Cancer Mother Diabetes Mother Relation Name Status Comments Father Mother Social History Tobacco Use Types Packs/Day Years Used Date Smoking Tobacco: Former Cigarettes Q uit: 08/03/2018 Smokeless Tobacco: Never AUDIT-C Answer Date Recorded Q1: How often do you have a drink containing alc ohol? Never 04/09/2021 Average Number of Drinks Not on file 021 Q3: How often do you have si x or more drinks on one occasion? 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 Gender Identity Not on file Sexual Orientation Not on file Obstetrics History Last Filed Vital Signs Vital Sign Reading Time Taken Comments Blood Pressure 110/70 05/16/2021 1:03 PM CDT Pulse 93 05/16/2021 1:03 PM CDT Temperature 36.5 C (97.7 F) 05/16/2021 1:03 PM CDT Respiratory Rate 17 05/04/2021 1:29 PM CDT Oxygen Saturation 94% 05/16/2021 1:03 PM CDT Inhaled Oxygen Concentration - - Weight 80.2 kg (176 lb 14.4 oz) 05/16/2021 1:03 PM CDT Height 154.9 cm (5' 1 ) 05/16/2021 1:03 PM CDT Body Mass Index 33.42 05/16/2021 1:03 PM CDT Plan of Treatment Not on file Insurance MEDICARE [facility] MEDICARE [facility] Advance Directives For more information, please contact: [phone] Documents on File Type Date Recorded 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
--- OUTSIDE RECORDS SUMMARY | 2024-12-29 15:29 | XMS_ITS | Referral Summary ---
Author Organization [facility] [address] [facility] Address [address] [place] [address] Care Team Providers Care Liberal Arts And Humanities Chair Name Role Phone Unavailable Primary Care Provider [...] area clean and dry. Use cool setting chair car driver when getting out of the shower. Diflucan [...] probably needs to see the ENT and lithoplate maker. H/O bilateral mastectomy 02/18/2021 Assessment & Plan [...] radical mastectomy. The tumor was ER positive, MS positive, HER-2/heidi negative. Patient had bilateral mastectomy [...] CDT): Dr. Ricardo Cano -- [facility] in [place] manages as under close surveliance Elevated liver enzymes 01/30/2021 Assessment & Plan (04/22/2021 7:20 PM CDT): Monitor. Stable since starting crestor Assessment & Plan (03/05/2021 10:45 PM CDT): Monitor labs especially with starting the statin Assessment & Plan (02/18/2021 9:34 AM CDT): Monitor closely Chronic obstructive pulmonary disease 04/01/2013 Overview (02/18/2021): Dr. Ronni Florian -- Pulmonary with [facility] [phone] Assessment & Plan (04/22/2021 7:19 PM CDT): Continue per PUlmonary Assessment & Plan (03/05/2021 10:40 PM CDT): Continue to follow with Dr. larsno. 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
--- OUTSIDE RECORDS SUMMARY | 2024-12-29 15:30 | XMS_ITS ---
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 Primary Care: Amirah Ralph MD Referring Provider: Amirah Ralph MD [id number] [place] [address] Other: Problem Noted Date Diagnosed Date Acute medial meniscus tear of left knee 12/30/19 24 Prediabetes 09/29/2019 Anemia in neoplastic disease 06/29/2019 Overview (06/29/2019): Hemoglobin started declining in May 2019 with chemotherapy. Assessment & Plan (07/26/2019 12:23 PM CDT): Hemoglobin has been fluctuating between 9 and 10 g. Will monitor it closely. Assessment & Plan (06/29/2019 9:36 AM CDT): Her hemoglobin is declining slowly and is down to 9.6 g but she is relatively asymptomatic and will monitor it without intervention. Thrombocytosis 06/08/2019 Overview (06/08/2019): 05/17/19 - Platelets - 540. Assessment & Plan (06/08/2019 11:28 AM CDT): Likely reactive/secondary thrombocytosis due to underlying malignancy. Will monitor it closely without intervention. Small cell lung cancer 04/13/2019 Overview (02/24/2020): 03/17/19 - CT chest: There is a new mass in the right upper lobe (the largest component measuring 2.5 x 2.3 cm more inferiorly and the uperior component measuring 2.1 x 1.6 cm superiorly. The total area spans a distance of 4 cm). Additional nodular area of consolidation within the left upper lobe that may represent rounded atelectasis. Severe coronary artery atherosclerotic calcifications. Background findings of severe emphysema. 04/09/19 - RUL lung biopsy: small cell carcinoma. 04/22/19 - CT head: No acute intracranial abnormality identified. Lytic lesion identified in the clivus measures 5 mm. Follow-up imaging is recommended to confirm stability. No abnormal parenchymal or meningeal enhancement. 04/22/19 - PET/CT: consistent with Limited stage small cell lung cancer involving 2 sites within the right upper lobe. No evidence of regional adenopathy or distant metastatic disease. 04/26/19 - Started on Cisplatin and etoposide. 05/26/19 -Started on radiation. Developed infusion reactions (chest pressure, pre-syncope, hypoxia, hypertension) with etoposide with day 2 and 3 of cycle #2, but received full doses. 06/08/19 - Etoposide changed to oral with cycle #3 due to infusion reactions with IV etoposide and tolerated oral etoposide well. 07/23/19 - CT Chest with contrast: Near resolution of the three adjacent masses in the right upper lobe seen on prior PET/CT with minimal residual scarring and small central nodule. Continued follow-up is recommended. Interval development of a reticulonodular focus in the right lower lobe concerning for a new site of cancer. Small nodule in the left posterior costophrenic angle is stable and was not abnormal on the PET/CT. 08/20/19 - PET/CT: Near complete metabolic response to therapy. Dominant right upper lobe nodule is nearly resolved, and the secondary satellite right upper lobe nodule is completely resolved. Severe bilateral COPD changes. No evidence for active local or distant metastatic disease. 09/2019 - Completed prophylactic cranial irradiation. 11/22/19 - CT C/A/P: Right upper lobe post treatment change, stable in appearance. No evidence of residual/metastatic disease. Right lower lobe reticular nodular opacity demonstrates interval decrease in size, suspected residua of prior infection/inflammation. Attention on follow-up imaging recommended. Hepatic steatosis. Nonobstructing nephrolithiasis. Constipation. Diverticulosis without diverticulitis. Assessment & Plan (02/24/2020 11:29 AM CDT): She has no symptoms suggestive of recurrent lung cancer but will obtain labs and chest x-ray and contact her with results. Advised her to contact in the interim for productive cough with hemoptysis, obesity shortness of, bone pains, weight loss. Otherwise we will plan to see him in about 4 months. Assessment & Plan (11/25/2019 12:38 PM HEAD RIGGER): I discussed the CT scan scan results showing posttreatment change in right upper lobe and is stable with no evidence of recurrent or metastatic disease and the right lower lobe reticulonodular opacity is better. Will continue to monitor her without intervention and plan to see in about 3 months. Advised her to contact us in the interim for productive cough, hemoptysis, bone pains, unexplained weight loss. She verbalized understanding of today's discussion, was satisfied with the office visit, and had no further questions. Assessment & Plan (08/26/2019 11:04 AM CDT): I explained the PET/CT scan results showing resolution of the right upper lobe with minimal activity which is probably inflammatory change. I feel it is safe to monitor her. She will undergo prophylactic cranial irradiation starting next week. I will see her in about 3 months with a repeat CT scan of the chest, abdomen and pelvis. She knows to contact us in the interim for productive cough, hemoptysis, bone pains, unexplained weight loss. She was satisfied with the office visit and had no further questions. Assessment & Plan (07/26/2019 12:22 PM CDT): I explained the CT scan results showing near complete resolution of right upper lobe lesions and the right lower lobe reticulonodular lesion is probably inflammation rather than a new site of cancer. I will obtain PET/CT in about 3 wks and if it's negative, she will be a candidate for prophylactic cranial radiation will refer her back to Dr. Maxx Richardson. Will plan to see her after the PET scan. She verbalized understanding of today's discussion, was satisfied with the office visit, and had no further questions. Assessment & Plan (06/29/2019 9:34 AM CDT): I will proceed with cycle #4 of cisplatin and etoposide as planned for today. Will obtain restaging CT scans before her next visit in about 3 weeks and plan to stop chemotherapy should there be no clear evidence of disease. If she has persistent disease, will plan to give 2 more cycles of chemotherapy. I reminded her that she will need prophylactic cranial irradiation should she have near complete response of primary disease. She verbalized understanding of today's discussion, was satisfied with the office visit, and had no further questions. Assessment & Plan (06/08/2019 11:26 AM CDT): As she had infusion reactions to IV topside, I have stopped it and made arrangements for her to get oral etoposide starting with the current cycle #3. Will give the first dose before cisplatin today and monitor her while she is in the infusion room. Should she tolerate it, will plan to give it with cycle #4. If she does not tolerate it, we may have to give single agent cisplatin with cycle #4 without etoposide. She will continue with concurrent radiation and complete it in the next few weeks. She verbalized understanding of today's discussion, was satisfied with the office visit, and had no further questions. Assessment & Plan (05/17/2019 9:39 AM CDT): As she tolerated chemotherapy with cisplatin and etoposide reasonably well but with expected fatigue, I will proceed with cycle #2 starting today should her blood counts be adequate. I reminded her that she will need to start radiation to the chest soon overlapping the second and third cycles of chemotherapy. Advised her to contact us in the interim for new or intolerable side effects. Will see her in 3 wks for cycle #3. She verbalized understanding of today's discussion, was satisfied with the office visit, and had no further questions. Assessment & Plan (04/26/2019 9:28 AM CDT): I discussed the PET scan results showing 2 right upper lobe lung lesions, but no evidence of local or distant metastatic disease. CT head showed a small lytic lesion in the skull which may or may not be significant but there is no intracranial disease. I'll start her on chemotherapy with cisplatin and etoposide and refer her to radiation oncology soon as possible for consideration of concurrent chemoradiation to be given with second and third cycle of chemotherapy for limited stage small cell lung cancer. We may consider a bone scan to further evaluate the skull based small lytic lesion seen on CT head. I reminded her of the potential side effects of this chemotherapy regimen including nausea, vomiting, alopecia, bone marrow suppression cytopenias, hearing loss/peripheral neuropathy/renal damage with cisplatin, secondary leukemias with a dioxide. Will plan to see her in about 3 weeks but she knows to contact us in interim for intolerable side effects. I reminded her the aggressive nature of small cell lung cancer and that it may relapse even after concurrent chemoradiation. She verbalized understanding of today's discussion, was satisfied with the office visit, and had no further questions. Assessment & Plan (04/15/2019 1:46 PM CDT): I had a long discussion with patient and her daughter and explained the newly found small cell lung cancer in the right upper lobe. I mentioned the need for a staging work-up to see if it is limited stage or extensive stage. If it is limited stage with disease in the 1 Radiation field, she will be a good candidate for concurrent chemoradiation with 4 cycles of cisplatin (or carbo) and etoposide. However, with underlying COPD, it is not clear if she will tolerate radiation. If she has extensive stage disease, she will get palliative chemotherapy with cisplatin (or carbo) and etopside every 3 weeks for minimum of 6 cycles and possibly longer. I will obtain CT brain as part of staging work-up. I briefly mentioned the potential side effects of chemotherapy which include but are not limited to nausea, vomiting, alopecia, hearing loss/peripheral neuropathy/renal damage with cisplatin, bone marrow suppression with cytopenias. We will plan to see her a few days after staging PET/CT next week. I have discussed the aggressive nature of small cell lung cancer which tends to be fast-growing with overall guarded prognosis. They both verbalized understanding of today's discussion, were satisfied with the office visit, and had no further questions. History of breast cancer 09/04/2018 Allergic rhinitis 08/03/2018 Lung mass 10/16/2016 Overview (10/16/2016): Seen on screening CT of lungs 10/14/16- recommend annual CT lung screening. Tobacco abuse 05/20/2016 Chronic bronchitis 05/20/2016 Vitamin D deficiency 04/05/2015 Impaired glucose tolerance 04/05/2015 Overview (05/20/2016): Overview: A1c 6.0% 2012 Chronic obstructive pulmonary disease 03/21/2015 Colon polyp 03/21/2015 Gastroesophageal reflux disease 03/21/2015 Overview (05/20/2016): Overview: controlled with diet. Mitral valve prolapse 03/21/2015 Carcinoma of right female breast 01/03/2010 Overview (05/09/2016): Stage I (T1, N0, M0) diagnosed in 2003 and had modified radical mastectomy. The tumor was ER positive, NV positive, HER-2/heidi negative. Assessment & Plan (05/09/2016 3:25 PM CDT): She has no evidence breast cancer recurrence. Assessment & Plan (05/10/2015 3:54 PM CDT): She has no evidence of breast cancer recurrence. Assessment & Plan (05/05/2014 3:36 PM CDT): She has no evidence of recurrent disease at this time. 07/07/2009 Malignant neoplasm of upper- outer quadrant of left female breast 07/07/2009 Overview (05/05/2014): Diagnoses in February 2004 with stage IIA disease and had modified radical mastectomy. It was infiltrating ductal carcinoma on both sides. She had adjuvant chemotherapy with Adriamycin Cytoxan for 4 cycles followed by Arimidex between 07/2004 and 09/11. Assessment & Plan (10/19/2018 2:31 PM HEAD RIGGER): She remains in clinical complete remission. Advised her to contact us for any new problems but she can follow-up with her PCP from now on without schedule appointments with me. She was satisfied with the office visit and had no further questions. Assessment & Plan (05/09/2016 3:25 PM CDT): Has no evidence of recurrent breast cancer. Will monitor her yearly. Reminded her of increased risk of cancers with ongoing smoking and prior history of cancer. Encouraged her to find a PCP soon. She verbalized understanding of today's discussion, was satisfied with the office visit, and had no further questions. Assessment & Plan (05/10/2015 3:53 PM CDT): She remains in complete remission. She knows to contact us for skin nodules, persistent cough with expectoration, bone pains, unintentional weight loss. She was satisfied with the office visit and had no further questions. Will monitor her yearly. Assessment & Plan (05/05/2014 3:37 PM CDT): No evidence of recurrent disease. I reminded her to contact us for skin nodules, bone pains, persistent cough or hemoptysis, unintentional weight loss. We'll continue to monitor her yearly. She was satisfied with the office visit and had no further questions. Assessment & Plan (02/27/2012 2:01 PM CDT): She remained stable clinically with no evidence of disease recurrence at this time. I will continue to monitor her yearly. She knows to contact us in the interim for unexplained weight loss, persistent cough, bone pains, or skin nodules. She verbalized understanding of today's discussion, was satisfied with the office visit, and had no further questions. Assessment & Plan (01/09/2011 3:25 PM HEAD RIGGER): Clinically there is no evidence of disease recurrence at this time. I will change her office visits to yearly from now on. I'll contact her should her labs from today be abnormal. She knows to contact us in the interim for any unexplained weight loss, persistent cough, or bone pains. The patient verbalized understanding of today's discussion, was satisfied with the office visit, and had no further questions. Assessment & Plan (07/11/2010 4:05 PM CDT): Clinically there is no evidence of disease recurrence at this time. I will continue to monitor her every 6-12 months from now on. She knows to contact us in the interim for any new problems. The patient verbalized understanding of today's discussion, was satisfied with the office visit, and had no further questions. Assessment & Plan (01/03/2010 3:55 PM HEAD RIGGER): There is no evidence of for disease recurrence at this time. She knows to contact us for any unexplained weight loss, bone pain, persistent cough. The patient verbalized understanding of today's discussion, was satisfied with the office visit, and had no further questions. Assessment & Plan (07/07/2009 2:16 PM CDT): Since there is no evidence of disease recurrence, I will continue to monitor her periodically. She will stop her Arimidex after the current bottle runs out as she has completed 5 years of therapy with aromatase inhibitors. She will contact us should she have any problems in the interim. The patient verbalized understanding of today's discussion, was satisfied with the office visit, and had no further questions. Tobacco dependence 07/07/2009 Overview (10/19/2018): Chronic and heavy, is in the process of quitting. 08/07/18 - Quit smoking. Assessment & Plan (02/24/2020 11:30 AM CDT): She stays off smoking and I encouraged her to avoid secondhand smoking as well. Assessment & Plan (11/25/2019 12:39 PM HEAD RIGGER): She does not smoke any longer and I encouraged her to stay off smoking. Assessment & Plan (06/29/2019 9:35 AM CDT): She remains without smoking but reports that she has secondary smoke and secondary vaping from her family members. Assessment & Plan (06/08/2019 11:27 AM CDT): She stays off smoking. Assessment & Plan (05/17/2019 9:39 AM CDT): She reported that she quit smoking a month ago. Assessment & Plan (10/19/2018 2:35 PM HEAD RIGGER): Encouraged her to stay off smoking. Assessment & Plan (05/09/2016 3:23 PM CDT): I have counseled her and spent 5 min and discussed Nicoderm patch with either Nicorette gum or lozenge, electronic cigarettes, auricular acupuncture therapy, Wellbutrin, Chantix. She verbalized understanding. Assessment & Plan (05/10/2015 3:52 PM CDT): I have counseled her at length to try and quit smoking, but she is not ready to do it at this time. Assessment & Plan (05/05/2014 3:35 PM CDT): She continues to smoke cigarettes due to stress in her life. I have counseled her again and discussed Nicoderm patch with either Nicorette gum or lozenges, prescription medications with Wellbutrin or Chantix, auricular acupuncture therapy. Part of her reluctance to quitting smoking is that she cannot afford the smoking cessation measures but she buys cigarettes. Assessment & Plan (02/27/2012 2:01 PM CDT): She continues to smoke cigarettes despite my repeated counseling. She claims that her life is full of stress. I have counseled her again to quit smoking. Assessment & Plan (01/09/2011 3:24 PM HEAD RIGGER): Patient continues to smoke cigarettes, but down to one pack of cigarettes per day. I have counseled her again at length to quit smoking. Assessment & Plan (07/11/2010 4:05 PM CDT): I have counseled her at length about smoking and its deleterious effects again. Assessment & Plan (01/03/2010 3:55 PM HEAD RIGGER): I have counseled her at length about the deleterious effect of smoking, and asked her to contact her PCP for a prescription for Chantix. She verbalized understanding. Current Treatment and Therapy Plans No current plan information found. Past Treatment and Therapy Plans ONCOLOGY TREATMENT Plan Name Start Date Discontinue Date Treatment Medications Discontinue Reason Plan Provider Cycles OP ONC LUNG (SC)_CIS PLATIN_E TOPOSIDE EVERY 21 DAYS 9 06/07/2024 CISplatin (PLATINOL) with mannitoletoposide (VEPESID / SENIOR PROJECT ACCOUNTANT-16) IVPB Therapy Complete Allison Palacios MD 4 of 6 cycles started Lifetime Dose Tracking * Chemical Lifetime Dose Automatic Entry Manual Entr y cisplatin 326.41 mg/m2 (616 mg) 326.41 mg/m2 (616 m g) 0 mg/m2 (0 mg) Effective Dose 25.4 mSv 25.4 mSv 0 mSv Total DLP 3,255 DLP 3,255 DLP 0 DLP CTDIvol Max 79.8 mGy 79.8 mGy 0 mGy CTDIvol Min 77.8 mGy 77.8 mGy 0 mGy Resolved Problems Problem Noted Date Diagnosed Date Resolved Date Cataract, left 03/03/2017 03/12/2017 Cataract, right 02/17/2017 03/12/2017 Cancer of breast, female 07/07/200901/2010
--- OUTSIDE RECORDS SUMMARY | 2024-12-29 15:30 | XMS_ITS | Referral Summary ---
Author Organization [facility] Address [address] [place] [address] Care Team Providers Care Motor Vehicle Compliance Analyst Name Role Phone Allison Palacios MD Unavailable [phone] Garrick Ruiz MD Primary Care Provider Source Comments [facility],non-owned Affiliates and Associated Physician Practices is amultiple site organization consisting of ambulatory clinics and hospital sitesin [place], [place], [place] and [place]. This disclosure is being madepursuant to the Care Everywhere program and may not contain all information available regarding this patient. Last updated 18.[facility] Encounters Date Type Department Care Team Description 11/15/2024 Lab Requisition [facility] - DermPath Lab [address] [facility], [place] [id number] Stephany Hudson PA from Last 3 Months Allergies Active Allergy Reactions Criticality Noted Date Comments Etoposide Other Medium 07/11/2023 PASS OUT. Medications * Be aware that medications may not be up to date on this document. Alwaysverify current medications with the patient. Medication Sig Dispensed Refills Start Date End Date Status ibuprofen (MOTRIN) 200 MG tablet Take 1 (one) tablet by mouth once daily Active levothyroxine (Synthroid) 50 MCG tablet Take 1 (one) tablet by mouth once daily 04/01/2023 Active cetirizine (ZyrTEC) 10 MG tablet Take 1 (one) tablet by mouth once daily Active nystatin (Mycostatin) [id number] UNIT/GM ointmentIndications:F ungal infection Apply to affected area 3 times daily as needed 30 g 2 07/03/2023 Active methylPREDNISolone (Medrol Dosepak) 4 MG tablet Take by mouth as directed 07/10/2023 Active vitamin D (Cholecaciferol) 125 MCG (5000 UT) capsule Take 1 (one) capsule by mouth once daily Active Multiple Vitamins-Minerals (WOMENS 50+ MULTI VITAMIN/MIN PO) Take 1 tablet by mouth once daily Active omeprazole (PriLOSEC) 20 MG capsule Take 1 (one) capsule by mouth daily before breakfast Active boric acid 600 mg vaginal capsule Insert 1 (one) capsule into the vagina Two times a week Active Active Problems Problem Noted Date Diagnosed Date Acquired hypothyroidism 03/05/2021 04/02/20 23 Overview (04/02/2023): Last Assessment & Plan: Levothyroxine has normalized TSH Hyperlipidemia 02/18/2021 04/02/2023 Overview (04/02/2023): Last Assessment & Plan: Encouraged patient to follow fat/low chol diet like the Mediterranean diet. Increase good fats in the diet. Increase exercise. Monitor labs as needed. Continue statin and Coq10 Seasonal allergies 02/18/2021 04/02/2023 Overview (04/02/2023): Last Assessment & Plan: Continue current regimen Malignant neoplasm of upper lobe of right lung 0 01/30/2021 04/02/2023 Overview (04/02/2023): Limited stage small cell lung cancer. This was diagnosed in April 2019. Patient received definitive radiation therapy with chemotherapy with cisplatin and etoposide. CT chest done on December 11, 2020 showed indeterminate right lower lobe nodule likely old granulomatous disease. No evidence of relapse of disease. Plan to repeat CT scan in 6 months. Last Assessment & Plan: Oncology continues to monitor closely with imaging. She is under close surveillance. Prediabetes 09/29/2019 04/02/2023 Overview (04/02/2023): Last Assessment & Plan: Pre-diabetes/hyperglycemia is a precursor to Dm. Stressed importance of working on diet (decrease your simple sugars and one carbohydrate with each meal) and increase you exercise to achieve weight loss and this will help prevent you from progressing to diabetes. Anemia in neoplastic disease 06/29/2019 Overview (04/02/2023): Hemoglobin started declining in May 2019 with chemotherapy. Last Assessment & Plan: Hemoglobin has been fluctuating between 9 and 10 g. Will monitor it closely. Thrombocythemia 06/08/2019 04/02/2023 Overview (04/02/2023): 05/17/19 - Platelets - 540. Last Assessment & Plan: Likely reactive/secondary thrombocytosis due to underlying malignancy. Will monitor it closely without intervention. Small cell lung cancer 04/13/2019 Overview (04/02/2023): 03/17/19 - CT chest: There is a [...] steatosis. Nonobstructing nephrolithiasis. Constipation. Diverticulosis without diverticulitis. Last Assessment & Plan: She has no symptoms suggestive of recurrent lung cancer but will obtain labs and chest x-ray and contact her with results. Advised her to contact in the interim for productive cough with hemoptysis, obesity shortness of, bone pains, weight loss. Otherwise we will plan to see him in about 4 months. Allergic rhinitis 08/03/2018 04/02/2023 Chronic bronchitis 05/20/2016 04/02/2023 Vitamin D deficiency 04/05/2015 IGT (impaired glucose tolerance) 04/05/2015 Overview (04/05/2015): A1c 6.0% 2012 Tobacco use disorder 03/21/2015 Hot flashes 03/21/2015 Colon polyp 03/21/2015 MVP (mitral valve prolapse) 03/21/2015 History of breast cancer 03/21/2015 Overview (03/21/2015): 2004, double mastectomy and chemotherapy ( Dr Pierce) GERD (gastroesophageal reflux disease) 5 Overview (03/21/2015): controlled with diet. Chronic obstructive pulmonary disease 04/01/2013 Overview (04/02/2023): Dr. 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 The tumor was ER positive, AL positive, HER-2/heidi negative. Last Assessment & Plan: She has no evidence breast cancer recurrence. Diagnoses in February 2004 with stage IIA disease and had modified radical mastectomy. It was infiltrating ductal carcinoma on both sides. She had adjuvant chemotherapy with Adriamycin Cytoxan for 4 cycles followed by Arimidex between 07/2004 and 09/11. Last Assessment & Plan: She remains in clinical complete remission. Advised her to contact us for any new problems but she can follow-up with her PCP from now on without schedule appointments with me. She was satisfied with the office visit and had no further questions. Immunizations Name Administration Dates Next Due PNEUMOCOCCAL PPSV23 08/09/2015 TDAP (7yrs+) 08/09/2015 Social History Tobacco Use Types Packs/Day Years Used Date Smoking Tobacco: Former Cigarettes 2 53 1 963 - 2016 Passive Smoke Exposure: Past Smokeless Tobacco: Never Alcohol Use Standard Drinks/Week Comments Not Currently 0 (1 standard drink = 0.6 oz pur e alcohol) very occ Sex and Gender Information Value Date Recorded Sex Assigned at Not on file Gender Identity Not on file Sexual Orientation Not on file Last Filed Vital Signs Vital Sign Reading Time Taken Comments Blood Pressure 142/82 07/11/2023 1:38 PM CDT TAKEN ON R WRIST Pulse 87 08/09/2015 3:01 PM CDT Temperature 36.2 C (97.2 F) 07/11/2023 1:38 PM CDT Respiratory Rate - - Oxygen Saturation 91% 08/09/2015 3:0 1 PM CDT Inhaled Oxygen Concentration - - Weight 75.5 kg (166 lb 6.4 oz) 07/11/2023 1:38 PM CDT Height 157.5 cm (5' 2.01 ) 07/11/2023 1 :38 PM CDT Body Mass Index 30.43 07/11/2023 1:38 PM CDT Plan of Treatment Not on file Goals Goal Patient Goal Type Associated Problems Recent Progress Patient-Stated? Author Quit smoking / using tobacco Lifestyle Not on track( 015 3:03 PM CDT) No Rasmhi Betancourt Procedures Procedure Name Priority Date/Time Associated Diagnosis Comments DERMATOPATHOLOGY Routine 11/15/2024 12:4 3 PM [employer] HEMOGLOBIN A1C Routine 04/02/2023 1:08 PM CDT Vulvar itching Fungal infection Pre-diabetes LIPID PROFILE W LDL/HDL RATIO Routine 03/25/2015 7:47 AM CDT Lipid screening from Last 3 Months or Most Recently Relevant to Health Maintenance Results * DERMATOPATHOLOGY (11/15/2024 12:43 PM [employer]) Case Report Dermatopathology Report Case: [id number] Authorizing Provider: Stephany Hudson PA Collected: 11/15/2024 12:43 PM Ordering Location: [facility] - Received: 11/16/2024 02:03 PM DermPath Lab Pathologist: Flor Zheng MD Specimen: Skin, left scalp 3:17 PM [facility] DERMATOPATHOLOGY LABORATORY Final Diagnosis Specimen A. SKIN, left scalp: SQUAMOUS CELL CARCINOMA IN SITU, PRESENT AT THE BASE OF THE SPECIMEN (D04.4) (see microscopic description and comment) OVERLYING CUTANEOUS HORN (L85.8) 3:17 PM [facility] DERMATOPATHOLOGY LABORATORY Clinical History R/O SCC; Growing 3:17 PM [facility] DERMATOPATHOLOGY LABORATORY Gross Description Specimen A: Received is one formalin filled container labeled with the patient's name and designated left scalp. The specimen consists of a shave biopsy measuring 10x9x5 mm. Jar 0. 3:17 PM [facility] DERMATOPATHOLOGY LABORATORY Microscopic Description Specimen A. SKIN, left scalp: The epidermis shows parakeratosis, full thickness disorderly maturation of keratinocytes, mitoses at different levels, and dyskeratotic cells. The lesion extends to the base of the biopsy. There is a column of marked compact hyperkeratosis. COMMENT: An invasive squamous cell carcinoma cannot be ruled out. 3:17 PM [facility] DERMATOPATHOLOGY LABORATORY Disclaimer An external and internal positive and negative controls are appropriate for the histochemical, immunohistochemical and immunofluorescence stain(s) in this case (if any), except where stated explicitly. The performance characteristics of the stain(s) cited in this report were developed and its performance characteristic determined by the Dermatopathology Laboratory at [facility], directed by Dr. Oilver Elmore. These tests need not be, and therefore are not, approved by the [place] Food and Drug Administration. The tests are used for clinical purposes. Billing Codes Specimen Charges Stain Charges 43423 1 3:17 PM [facility] DERMATOPATHOLOGY LABORATORY Embedded Images 3:17 PM [facility] DERMATOPATHOLOGY LABORATORY Pathology/Cytolo gy TISSUE SPECIMEN FROM SKIN / Unknown 11/15/2024 12:43 PM [employer] 11/16/2024 2:03 PM EFFICI[facility]Y [facility]phany [facility] - PATHOLOGY/CYTO LOGY ORDERABLES DERMATOPATHOLOGY LABORATORY [facility] - Department of Dermatology [address] [phone] * HEMOGLOBIN A1C (04/02/2023 1:08 PM CDT) Hemoglobin A1c TNP % of total Hgb [facility] Comment: TEST NOT PERFORMED No suitable specimen received. Please review the test requirements at [email or web address] Test Performed at: [facility] [id number] [id number] DEA BHAT MD Blood BLOOD SPECIMEN / Unknown 04/02/2023 1:08 PM CDT 04/02/2023 9:27 PM CDT Marietta Ochoa SPEECH CORRECTION CONSULTANT-ELECTRICIAN APPRENTICE [employer]OWER[employer]SE LAB - CHEMI STRY ORDERABLES [address] [address] * (ABNORMAL) LIPID PROFILE W LDL/HDL (PO REF LAB) (03/25/2015 7:47 AM CDT) Cholesterol 204(H) 100 - 199 mg/dL [facility] ACCOUNT BILL Triglycerides 107 0 - 149 mg/dL [facility] ACCOUNT BILL HDL Cholesterol 47 >39 mg/dL [facility] ACCOUNT BILL Comment: According to ATP-III Guidelines, HDL-C >59 mg/dL is considered a negative risk factor for CHD. VLDL Calculated 21 5 - 40 mg/dL [facility] ACCOUNT BILL LDL Calculated 136(H) 0 - 99 mg/dL [facility] ACCOUNT BILL Comment NOT NEEDED [facility] ACCOUNT BILL Comment:Ancillary determined the test is not needed LDL/HDL Ratio 2.9 0.0 - 3.2 ratio units [facility] ACCOUNT BILL Comment: LDL/HDL Ratio Men Women 1/2 Avg.Risk 1.0 1.5 Avg.Risk 3.6 3.2 2X Avg.Risk 6.2 5.0 3X Avg.Risk 8.0 6.1 Blood specimen (specimen) BLOOD SPECIMEN / Unknown 03/25/2015 7:47 AM CDT 03/25/2015 10:57 AM CDT Narrative Resulting Agency Comment [facility] [address] [phone] Anneliese Bowers MD LAB - CHEMISTRY YELITZA WOOD [facility] ACCOUNT BILL from Last 3 Months or Most Recently Relevant to Health Maintenance Insurance Payer Benefit Plan / Group Subscriber ID Effective Dates Phone Address Type [facility] MANAGED MEDICARE ADV [facility] MEDICARE ADV HMO/POS [id number] 06/03/2023-Pres ent [address] [address] [place] [address] Medicare-Man aged Care MEDICARE WPS MEDICARE PART B [id number] 02/01/2018-Pres ent [address] [address] [place] [address] Medicare MEDICAID - OUT OF STATE [place] PUBLIC AID [id number] Effective for all dates [address] [address] [place] [address] Medicaid [facility] CHOICE/SELECT /CHOICE PLUS/ALL PAYORS [id number] 11/03/2014-Pres ent [address] [address] [place] [address] HMO MEDICARE WPS MEDICARE PART B [id number] 02/01/2018-Pres ent [address] [address] [place] [address] Medicare MEDICAID - OUT OF STATE MED[place] AID [id number] Effective for all dates [address] [address] [place] [address] Medicaid MEDICARE WPS MEDICARE PART B [id number] 02/01/2018-Pres ent [address] [address] [place] [address] Medicare MEDICAID - OUT OF STATE MED[place] PUBLIC AID [id number] Effective for all dates [address] [address] [place] [address] Medicaid [facility] CHOICE/SELECT /CHOICE PLUS/ALL PAYORS [id number] 11/03/2014-Pres ent [address] [address] [place] [address] HMO MEDICARE WPS MEDICARE PART B [id number] Effective for all dates [address] [address] [place] [address] Medicare MEDICAID - OUT OF STATE MEDICA[place] PUBLIC AID [id number] Effective for all dates [address] [address] [place] [address] Medicaid [facility] CHOICE/SELECT /CHOICE PLUS/ALL PAYORS [id number] 11/03/2014-Pres ent [address] [address] [place] [address] HMO MEDICARE WPS MEDICARE PART B [id number] Effective for all dates [address] [address] [place] [address] Medicare MEDICAID - OUT OF STATE MEDICAID - [place] PUBLIC AID [id number] Effective for all dates [address] [address] [place] [address] Medicaid MEDICARE WPS MEDICARE PART B [id number] Effective for all dates [address] [address] [place] [address] Medicare MEDICARE WPS MEDICARE PART B [id number] Effective for all dates [address] [address] [place] [address] Medicare MEDICARE WPS MEDICARE PART B [id number] Effective for all dates [address] [address] [place] [address] Medicare [employer] UHC CHOICE/SELECT /CHOICE PLUS/ALL PAYORS [id number] 11/03/2014-Pres ent [address] [address] [place] [address] [place] MED[place] - [place] HEALTH[employer] [id number] Effective for all dates ATTN: [employer] G [address] [place] [address] Medicaid MEDICAID - [place] MEDICAID [facility] HEALTHNET [id number] Effective for all dates ATTN: [employer] G [address] [place] [address] Medicaid [place] [id number] 03/25/2023-Pre sent [address] [address] [place] [address] Medicaid [place] Care Teams Motor Vehicle Compliance Analyst Relationship Specialty Start Date End Date Garrick Ruiz MD [address] [place] [address] PCP - General Family Medicine 07/03/23 Allison Palacios MD Oncology 03/21/15
--- OUTSIDE RECORDS SUMMARY | 2024-12-29 15:30 | XMS_ITS | Encounter Summary ---
Author Organization [facility] [employer] [facility] Address [address] [place] [address] Care Team Providers Care Process Assistant Name Role Phone Garrick Ruiz MD Primary Care Provider Reason for Visit * Reason Onset Date Comments labs and ct order 08/23/2022 Encounter Details Date Type Department Care Team (Late st Contact Info) Description 08/23/2022 Telephone [facility] Oncology and Hematology - [facility] Moi Mares [address] [address] Dwaine Phillips MD [address] [place] [address] [address] [place] [address] order Social History Tobacco Use Types Packs/Day Years Used Date Smoking Tobacco: Former Cigarettes 0.8 47 1 - 08/07/2018 E-Cigarette/Mist Inhalation Device Smokeless Tobacco: Never Alcohol Use Standard Drinks/Week Comments Yes 0 (1 standard drink = 0.6 oz pur e alcohol) rarely Feeling Safe Answer Date Recorded Within the last year, have y ou been afraid of your partner or ex-partner? Patient declined 04/09/2019 Within the last year, have y ou been humiliated or emotionally abused in other ways by your partner or ex-partner? Patient declined 04/09/2019 Within the last year, have y ou been kicked, hit, slapped, or otherwise physically hurt by your partner or ex-partner? Patient declined 04/09/2019 Within the last year, have y ou been raped or forced to have any kind of sexual activity by your partner or ex-partner? Patient declined 04/09/2019 Social Connections Answer Date Recorded In a typical week, how many times do you talk on the phone with family, friends, or neighbors? Patient declined 04/09/2019 How often do you get togethe r with friends or relatives? Patient declined 04/09/2019 How often do you attend protestant or judaism serv ices? Patient declined 04/09/2019 Do you belong to any clubs o r organizations such as protestant groups, unions, fraternal or athletic groups, or school groups? Patient declined 04/09/2019 How often do you attend meet ings of the clubs or organizations you belong to? Patient declined 04/09/2019 Are you , , di vorced, , never , or living with a partner? Patient declined 04/09/2019 Financial Resource Strain Answer Date R ecorded How hard is it for you to pa y for the very basics like food, housing, medical care, and heating? Patient declined 04/09/2019 Food Insecurity Answer Date Recorded Within the past 12 months, y ou worried that your food would run out before you got the money to buy more. Patient declined Within the past 12 months, t he food you bought just didn't last and you didn't have money to get more. Patient declined 05/2019 Transportation Needs Answer Date Record ed In the past 12 months, has l ack of transportation kept you from medical appointments or from getting medications? Patient declined 04/09/2019 In the past 12 months, has l ack of transportation kept you from meetings, work, or from getting things needed for daily living? 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 No / Unsure 08/23/2022 10:35 AM CDT documented as of this encounter Plan of Treatment Upcoming Encounters Date Type Department Care Team (Late st Contact Info) Description 09/01/2025 2:30 PM CDT Office Visit [facility] Oncology and Hematology [facility] [address] [facility] [address] [place] [address] Ricardo Cano MD [address] [facility] [address] [place] [address] documented as of this encounter Visit Diagnoses Diagnosis Small cell lung cancer (CMS/HCC)- Primary Malignant neoplasm of bronchus and lung, unspecified site documented in this encounter Additional Health Concerns Assessment Noted Time PHQ-9 Depression Total Score: 1 05/17/20 20 3:00 PM CDT documented as of this encounter Care Teams Process Assistant Relationship Specialty Start Date End Date Garrick Ruiz MD [address] [place] [address] PCP - General Family Practice 01/08/22 documented as of this encounter
--- OUTSIDE RECORDS SUMMARY | 2024-12-29 15:30 | XMS_ITS | Encounter Summary ---
Author Organization [facility] [facility] Address [address] [place] [address] Care Team Providers Care Range Mechanic Name Role Phone Garrick Ruiz MD Primary Care Provider Reason for Referral * CT Scan (Routine) - Closed Specialty Diagnoses / Procedures Referred By Contac t Referred To Contact Diagnoses Small cell carcinoma of lung, unspecified laterality, unspecified part of lung (CMS/HCC) Procedures CT CHEST W CONTRAST Ricardo Cano MD [address] [place] [address] Phone: tel: fax: [place] [phone] Referral ID Status Reason Start Date Expiration Date V isits Requested Visits Authorized [id number] Closed [facility] CTS 12/29/2024 01/29/2026 1 1 NESS DEVELOPMENT ASSOCIATE Reason for Visit * Reason Comments Cancer Follow Up Encounter Details Date Type Department Care Team (Late st Contact Info) Description 12/29/2024 2:45 PM BUSINESS DEVELOPMENT ASSOCIATE Office Visit [facility] Oncology and Hematology [address] [place] [address] Ricardo Cano MD [address] [place] [address] Small cell carcinoma of lung, unspecified laterality, unspecified part of lung (CMS/HCC) (Primary Dx); Malignant neoplasm of upper-outer quadrant of left breast in female, estrogen receptor positive ([facility]/HCC) Social History Tobacco Use Types Packs/Day Years Used Date Smoking Tobacco: Former Cigarettes 0.8 47 1 - 08/07/2018 E-Cigarette/Mist Inhalation Device Passive Smoke Exposure: Past Smokeless Tobacco: Never Tobacco Cessation:Counseling Given: Not Answered Alcohol Use Standard Drinks/Week Comments Yes 0 [...] declined 04/09/2019 How often do you attend anabaptism or yarsani serv ices? Patient declined 04/09/2019 Do you belong to any clubs o r organizations such as anabaptism groups, unions, fraternal or athletic groups, or [...] needed for daily living? Patient declined 04/09/2019 Feeling Safe Answer Date Recorded Are you in a relationship wi th someone who hurts you emotionally and/or physically? No 03/05/2024 Comments No Sex and Gender Information Value Date Recorded Sex Assigned at Not on file Legal Sex Female 5:39 AM BUSINESS DEVELOPMENT ASSOCIATE Gender Identity Not on file Sexual Orientation Not on file Occupation Industry Job Start Date Job End Date Not on file Not on file Not on file Not on file documented as of this encounter Last Filed Vital Signs Vital Sign Reading Time Taken Comments Blood Pressure 132/81 12/29/2024 2:15 PM BUSINESS DEVELOPMENT ASSOCIATE Pulse 97 12/29/2024 2:15 PM BUSINESS DEVELOPMENT ASSOCIATE Temperature 35.7 C (96.3 F) 12/29/2024 2:15 PM BUSINESS DEVELOPMENT ASSOCIATE Respiratory Rate 14 12/29/2024 2:15 PM BUSINESS DEVELOPMENT ASSOCIATE Oxygen Saturation 93% 12/29/2024 2:15 PM BUSINESS DEVELOPMENT ASSOCIATE Inhaled Oxygen Concentration - - Weight 73.5 kg (162 lb) 12/29/2024 2:15 PM BUSINESS DEVELOPMENT ASSOCIATE Height - - Body Mass Index 28.7 03/05/2024 6:28 AM CDT documented in this encounter Progress Notes * Ricardo Cano MD - 12/29/2024 2:36 PM CST HEMATOLOGY / ONCOLOGY PROGRESS NOTE Patient Identification: Name: Fide Hayes Age: 69 y.o. Sex: female : 1955 DIAGNOSIS Limited stage small cell lung cancer. This was diagnosed in April 2019. History of bilateral breast cancer. Patient had bilateral mastectomy done in 2003 CURRENT TREATMENT Surveillance TREATMENT HISTORY Patient had bilateral mastectomy done in 2003. She received adjuvant chemotherapy with Adriamycin Cytoxan x4 cycles and then hormonal therapy with Arimidex for 5 years duration completed in September 2009. Patient received definitive radiation therapy with chemotherapy with cisplatin and etoposide SUBJECTIVE Patient came to the office for follow-up visit. She denies any chest pain and shortness of breath. Complaining of lack of appetite and get full quite early when she eats. Patient has lost 3 pound weight. She is scheduled to have colonoscopy tomorrow. Denies any other new complaints. Review of system Constitutional: denies fevers, sweats, 3 pound weight loss without much tiredness and fatigue HEENT: denies sinus congestion, hearing or vision problems Respiratory: denies cough, dyspnea, wheeze Cardiovascular: denies chest pain, exertional chest pressure/discomfort, nausea, syncope, shortnessof breath GI: denies constipation, diarrhea, dsyphagia, reflux symptoms, vomiting, melena, complain of lack of appetite and early satiety : denies dysuria, frequency, incontinence, urgency Integumentary system: no lymphadenopathy, sweats, flushing Musculoskeletal: denies: myalgia, arthralgia Neurological: denies blurry or disturbed vision, numbness/weakness, dizziness Skin: No lumps, no rash 12 review system was reviewed Objective: Vital signs in last 24 hours: As per nursing note Exam: General appearance: alert, cooperative, no distress, appears stated age Head: normocephalic, without obvious abnormality, atraumatic Eyes: conjunctivae/corneas clear, EOM's intact Ears: normal external ear canals AU Nose: Nares normal. Septum midline. Mucosa normal. No drainage or sinus tenderness Throat: Lips, mucosa, and tongue normal. Teeth and gums normal Neck: supple, symmetrical, trachea midline. Lungs: clear to auscultation bilaterally Heart: regular rate and rhythm, S1, S2 normal, no murmur, click, rub or gallop Abdomen: soft, non-tender. Bowel sounds normal. No masses, No organomegaly Extremities: extremities normal, atraumatic, no cyanosis or edema Skin: Skin color, texture, turgor normal. Yeast infection under the belly noted Lymph nodes: No lymphadenopathy Neuro: No obvious focal deficit Exam as above PATH LABS Labs from December 06, 2020 showed AST 63 ALT 55 alkaline phosphatase 132 WBC 7.6 hemoglobin 14.5 platelet 264,000. Labs from March 12 showed AST 51 ALT 42 creatinine 0.9 WBC 8.3 hemoglobin 14.2 platelet 242,000 CA 15-3 20 Labs from December 19 showed creatinine 0.9 total bilirubin 0.4 WBC 7.1 hemoglobin 14.6 platelet 246,000 Labs from January 31 showed WBC 7.1 hemoglobin 15.4 platelet 215,000 creatinine 0.8 total bilirubin 0.8 Labs from May 14 showed creatinine 1.1 vitamin B12 654 AST 39 ALT 31 WBC 6.7 hemoglobin 14.5 platelet 198,000 Labs from November 12 showed WBC 5.8 hemoglobin 15.1 platelet 202,000 creatinine 0.9 Labs from May 12 showed CA 15-3 25 creatinine 0.9 AST 50 hemoglobin 15 Labs from December 29 showed WBC 8.7 hemoglobin 14.5 platelet 216,000 Assessment: Plan: Patient Active Problem List Diagnosis Date Noted Acute medial meniscus tear of left knee 12/30/2023 Prediabetes 09/29/2019 Anemia in neoplastic disease 06/29/2019 Overview Note: Hemoglobin started declining in May 2019 with chemotherapy. Thrombocytosis 06/08/2019 Overview Note: 05/17/19 - Platelets - 540. Small cell lung cancer (CMS/HCC) 04/13/2019 Overview Note: 03/17/19 - CT chest: There is a [...] recommended to confirm stability. No abnormal parenchymal ormeningeal enhancement. 04/22/19 - PET/CT: consistent with Limited stage small cell lung cancer involving 2 sites within theright upper lobe. No evidence of regional adenopathy [...] reticulonodular focus in the right lower lobe concerningfor a new site of cancer. Small nodule in the left posterior costophrenic angle is stable and was not abnormal on the PET/CT. 08/20/19 - PET/CT: Near complete metabolic response to therapy. Dominant right upper lobe nodule isnearly resolved, and the secondary satellite right upper lobe nodule is completely resolved. Severebilateral COPD changes. No evidence for active local or distant metastatic disease. 09/2019 - Completed prophylactic cranial irradiation. 11/22/19 - CT C/A/P: Right upper lobe post treatment change, stable in appearance. No evidence of residual/metastatic disease. Right lower lobe reticular nodular opacity demonstrates interval decreasein size, suspected residua of prior infection/inflammation. Attention on follow-up imaging recommended. Hepatic steatosis. Nonobstructing nephrolithiasis. Constipation. Diverticulosis without diverticulitis. History of breast cancer 09/04/2018 Allergic rhinitis 08/03/2018 Lung mass 10/16/2016 Overview Note: Seen on screening CT of lungs 10/14/16- recommend annual CT lung screening. Tobacco abuse 05/20/2016 Chronic bronchitis ([facility]/HCC) 05/20/2016 Vitamin D deficiency 04/05/2015 Impaired glucose tolerance 04/05/2015 Overview Note: Overview: A1c 6.0% 2012 Chronic obstructive pulmonary disease (CMS/HCC) 03/21/2015 Colon polyp 03/21/2015 Gastroesophageal reflux disease 03/21/2015 Overview Note: Overview: controlled with diet. Mitral valve prolapse 03/21/2015 Carcinoma of right female breast (CMS/HCC) 01/03/2010 Overview Note: Stage I (T1, N0, M0) diagnosed in 2003 and had modified radical mastectomy. The tumor was ER positive, WI positive, HER-2/heidi negative. 07/07/2009 Malignant neoplasm of upper-outer quadrant of left female breast ([facility]/HCC) 07/07/2009 Overview Note: Diagnoses in February 2004 with stage IIA disease and had modified radical mastectomy. It was infiltrating ductal carcinoma on both sides. She had adjuvant chemotherapy with Adriamycin Cytoxan for 4 cycles followed by Arimidex between 07/2004 and 09/11. Tobacco dependence 07/07/2009 Overview Note: Chronic and heavy, is in the process of quitting. 08/07/18 - Quit smoking. Limited stage small cell lung cancer. This was diagnosed in April 2019. Patient received definitive radiation therapy with chemotherapy with cisplatin and etoposide. Patient remains clinically asymptomatic. CT scan done on December 15, 2024 showed no evidence of relapse of malignancy. I plan to see her back in [address] chest. History of bilateral breast cancer status post bilateral mastectomy. There is no evidence of relapse of disease. Early satiety and weight loss. Patient is going to have colonoscopy tomorrow. I recommended to discuss with gastroenterology regarding EGD as well. She will also follow-up with the primary care physician. NALINI. I recommended rectal exercise and weight loss. 12/29/2024 Ricardo Cano MD NESS DEVELOPMENT ASSOCIATE documented in this encounter Plan of Treatment Upcoming Encounters Date Type Department Care Team (Late st Contact Info) Description 09/01/2025 2:30 PM CDT Office Visit [facility] Oncology and Hematology [facility] [address] [facility] [address] [place] [address] Ricardo Cano MD [address] [facility] [address] [place] [address] Scheduled Orders Name Type Priority Associated Diagnoses Orde r Schedule CBC WITH DIFFERENTIAL Lab Stat Small cell carcinoma of lung, unspecified laterality, unspecified part of lung (CMS/HCC) Expected: 08/28/2025, Expires: 12/29/2025 COMPREHENSIVE METABOLIC PANEL Lab Stat Small cell carcinoma of lung, unspecified laterality, unspecified part of lung (CMS/HCC) Expected: 08/28/2025, Expires: 12/29/2025 CT CHEST W CONTRAST Imaging Routine Small cell carcinoma of lung, unspecified laterality, unspecified part of lung (CMS/HCC) Expected: 08/28/2025, Expires: 12/29/2025 CANCER ANTIGEN 15-3 Lab Routine Malignant neoplasm of upper-outer quadrant of left breast in female, estrogen receptor positive (CMS/HCC) Expected: 08/28/2025, Expires: 12/29/2025 documented as of this encounter Visit Diagnoses Diagnosis Small cell carcinoma of lung, unspecified laterality, unspecified part of lung (CMS/HCC)- Primary Malignant neoplasm of upper-outer quadrant of left breast in female, estrogen receptor positive (CMS/HCC) documented in this encounter Additional Health Concerns Assessment Noted Time PHQ-9 Depression Total Score: 1 05/17/20 20 3:00 PM CDT documented as of this encounter Care Teams Range Mechanic Relationship Specialty Start Date End Date Garrick Ruiz MD [address] [place] [address] PCP - General Family Practice 01/08/22 documented as of this encounter
--- OUTSIDE RECORDS SUMMARY | 2024-12-29 15:30 | XMS_ITS | Encounter Summary ---
Author Organization [facility] Address [address] [place] [address] Care Team Providers Care Nurse Staff Community Health Name Role Phone Allison Palacios MD Unavailable [phone] Garrick Ruiz MD Primary Care Provider Reason for Visit * Reason Onset Date Comments Question 06/16/2023 Encounter Details Date Type Department Care Team (Late st Contact Info) Description 06/16/2023 Telephone [facility] - WEATHERIZATION OPERATIONS MANAGER [address] [facility] [address] [place] [address] Marietta Ochoa, DEXTRINE MIXER-WOOL HAT FLANGER [address] [facility] [address] [place] [phone] Question Social History Tobacco Use Types Packs/Day Years Used Date Smoking Tobacco: Former Cigarettes 2 53 Passive Smoke Exposure: Past Smokeless Tobacco: Never Alcohol Use Standard Drinks/Week Comments No 0 (1 standard drink = 0.6 oz pur e alcohol) very occ Sex and Gender Information Value Date Recorded Sex Assigned at Not on file Gender Identity Not on file Sexual Orientation Not on file documented as of this encounter Miscellaneous Notes * Telephone Encounter - Lela Alexandra RN - 06/16/2023 4:30 PM CDT Return call to patient Was seen 04/02/2023 Feels the yeast infection not completely going away yeast on her stomach better but still present Vagina and groin remain inflamed from yeast infection Big picture window in her home So she can't walk around naked History of [place] Fluconazole mcg/mL 64 R Is to see Marietta Ochoa 07/03/2023 Has used the boric acid vaginal 5 nights in a row. symptoms subside but never all the way gone New insurance: [facility] Medicare Advantage [employer] Baking soda sitz baths in cool water until she hears back from this office * Telephone Encounter - Atilio Wood - 06/16/2023 4:06 PM CDT Patient called and wants the nurse to call her back. Please called Patient back: CB: [phone] documented in this encounter Plan of Treatment Not on file documented as of this encounter Goals Goal Patient Goal Type Associated Problems Recent Progress Patient-Stated? Author Quit smoking / using tobacco Lifestyle Not on track( 015 3:03 PM CDT) No Rashmi Betancourt documented as of this encounter Visit Diagnoses Not on filedocumented in this encounter Care Teams Nurse Staff Community Health Relationship Specialty Start Date End Date Garrick Ruiz MD [address] [place] [id number] PCP - General Family Medicine 07/03/23 Allison Palacios MD Oncology 03/21/15 documented as of this encounter
--- OUTSIDE RECORDS SUMMARY | 2024-12-29 15:30 | XMS_ITS | Clinical Summary ---
Author Organization [facility] Switch Identity Governance Address [address] [place] [address] Care Team Providers Care Exhaust Worker Name Role Phone Allison Palacios MD Unavailable [phone] Garrick Ruiz MD Primary Care Provider Source Comments [facility],non-owned Affiliates and Associated Physician Practices is amultiple site organization consisting of ambulatory clinics and hospital sitesin [place], [place], [place] and [place]. This disclosure is being madepursuant to the Care Everywhere program and may not contain all information available regarding this patient. Last updated 18.[facility] Switch Identity Governance Allergies Active Allergy Reactions Criticality Noted Date [...] by mouth once daily Active nystatin (Mycostatin) [id number] UNIT/GM ointmentIndications:F ungal infection Apply to affected [...] Date Diagnosed Date Acquired hypothyroidism 03/05/2021 04/02/20 Overview (04/02/2023): Last Assessment & Plan: Levothyroxine [...] (04/02/2023): Dr. Ronni Florian -- Pulmonary with [facility] [phone] Last Assessment & Plan: Continue per PUlmonary Malignant neoplasm of upper- outer quadrant of left female breast 07/07/2009 04/02/2023 Overview (04/02/2023): Stage I (T1, N0, M0) diagnosed in 2003 and had modified radical mastectomy. The tumor was ER positive, DC positive, HER-2/heidi negative. Last Assessment & Plan: [...] office visit and had no further questions. Encounters Date Type Department Care Team Description 11/15/2024 Lab Requisition [facility] - DermPath Lab [address] [place] [phone] Stephany Hudson PA from Last 3 Months Immunizations Name Administration Dates Next Due PNEUMOCOCCAL PPSV23 08/09/2015 TDAP (7yrs+) 08/09/2015 Family History Medical History Relation Name Comments Hypertension Father None Known Maternal Grandfather Diabetes - Type 2 Maternal Grandmother Osteoporosis Maternal Grandmother CVA Mother Cancer - Breast Mother Dementia Mother Diabetes - Type 2 Mother Other Paternal Grandfather Black l kurt Arthritis - Rheumatoid Paternal Grandmother Osteoporosis Paternal Grandmother Relation Name Status Comments Father Alive Maternal Grandfather Maternal Grandmother Mother Paternal Grandfather Paternal Grandmother Social History Tobacco Use Types Packs/Day Years [...] 07/11/2023 1:38 PM CDT Plan of Treatment Health Maintenance Due Date Last Done Comments BONE DENSITY TESTING 1955 COLOGUARD (AGES 45-75) - COLON CA SCREENING 1953 COLON MONITORING 1953 COLONOSCOPY - COLON CA SCREENING 1953 CT COLONOGRAPHY - COLON CA SCREENING 1953 Colorectal Cancer Screening 1953 FIT - COLON CA SCREENING 1953 FLEX SIG - COLON CA SCREENING 1953 MAMMOGRAM 1953 HEPATITIS C SCREENING 07/01/1971 LUNG CANCER SCREENING 2003 ZOSTER VACCINE (1 of 2) 2003 Respiratory Syncytial Virus (RSV) Vaccine Pt: or over 60 yrs (1 - Risk 60-74 years 1-dose series) 2013 PNEUMOCOCCAL VACCINE 50+ (2 of 2 - PCV) 08/09/2016 08/09/2015 LIPID TESTING 03/25/2020 03/25/2015, 04/05/2013 COVID-19 VACCINE ( season) 2024 10/11/2022, 09/07/2021, 02/05/2021, Additional history exists INFLUENZA VACCINE (#1) 2024 2, 08/15/2021, 08/26/2019, Additional history exists DEPRESSION SCREENING 11/03/2024 MEDICARE AWV CALENDAR YEAR 2024 DTAP/TDAP/TD VACCINES (2 - Td or Tdap) 08/09/2025 08/09/2015 SCREENING FOR DIABETES 04/02/2026 3, 03/25/2015, 04/05/2013, Additional history exists HEPATITIS B VACCINE Aged Out No longe r eligible based on patient's age to complete this topic HIB VACCINE Aged Out No longer eligi ble based on patient's age to complete this topic HPV VACCINE Aged Out No longer eligi ble based on patient's age to complete this topic MENINGOCOCCAL (Group B) VACCINE Aged Out No longer eligible based on patient's age to complete this topic MENINGOCOCCAL VACCINE Aged Out No shukri michelle eligible based on patient's age to complete this topic Goals Goal Patient Goal Type Associated Problems Recent Progress Patient-Stated? Author Quit smoking / using tobacco Lifestyle Not on track( 015 3:03 PM CDT) Rashmi Guillaume Procedures Procedure Name Priority Date/Time Associated Diagnosis Comments DERMATOPATHOLOGY Routine 11/15/2024 12:4 3 PM BUYER AGENT HEMOGLOBIN A1C Routine 04/02/2023 1:08 PM CDT Vulvar itching Fungal infection Pre-diabetes LIPID PROFILE W LDL/HDL RATIO Routine 03/25/2015 7:47 AM CDT Lipid screening from Last 3 Months or Most Recently Relevant to Health Maintenance Results * DERMATOPATHOLOGY (11/15/2024 12:43 PM BUYER AGENT) Case Report Dermatopathology Report Case: [id number] Authorizing Provider: Stephany Hudson PA Collected: 11/15/2024 12:43 PM Ordering Location: [facility] - Received: 11/16/2024 02:03 PM DermPath Lab Pathologist: Flor Zheng MD Specimen: Skin, left scalp 3:17 PM [facility] DERMATOPATHOLOGY LABORATORY Final Diagnosis Specimen A. SKIN, left scalp: SQUAMOUS CELL CARCINOMA IN SITU, PRESENT AT THE BASE OF THE SPECIMEN (D04.4) (see microscopic description and comment) OVERLYING CUTANEOUS HORN (L85.8) 3:17 PM [facility] DERMATOPATHOLOGY LABORATORY Clinical History R/O SCC; Growing 3:17 PM BUYER AGENT DERMATOPATHOLOGY LABORATORY Gross Description Specimen A: Received is one formalin filled container labeled with the patient's name and designated left scalp. The specimen consists of a shave biopsy measuring 10x9x5 mm. Jar 0. 3:17 PM [facility] DERMATOPATHOLOGY LABORATORY Microscopic Description Specimen A. SKIN, left scalp: The epidermis shows parakeratosis, full thickness disorderly maturation of keratinocytes, mitoses at different levels, and dyskeratotic cells. The lesion extends to the base of the biopsy. There is a column of marked compact hyperkeratosis. COMMENT: An invasive squamous cell carcinoma cannot be ruled out. 3:17 PM [facility] DERMATOPATHOLOGY LABORATORY Disclaimer An external and internal positive and negative controls are appropriate for the histochemical, immunohistochemical and immunofluorescence stain(s) in this case (if any), except where stated explicitly. The performance characteristics of the stain(s) cited in this report were developed and its performance characteristic determined by the Dermatopathology Laboratory at [facility], directed by Dr. Oliver Elmore. These tests need not be, and therefore are not, approved by the [place] Food and Drug Administration. The tests are used for clinical purposes. Billing Codes Specimen Charges Stain Charges 51090 1 3:17 PM [facility] DERMATOPATHOLOGY LABORATORY Embedded Images 3:17 PM [facility] DERMATOPATHOLOGY LABORATORY Pathology/Cytolo gy TISSUE SPECIMEN FROM SKIN / Unknown 11/15/2024 12:43 PM BUYER AGENT 11/16/2024 2:03 PM BUYER AGENT Stephany GLASS LAB - PATHOLOGY/CYTO LOGY ORDERABLES DERMATOPATHOLOGY LABORATORY [facility] Department of Dermatology [address], [address] [phone] * HEMOGLOBIN A1C (04/02/2023 1:08 PM CDT) Hemoglobin A1c TNP % of total Hgb [facility] Comment: TEST NOT PERFORMED No suitable specimen received. Please review the test requirements at testdirectory.DescribeMe Test Performed at: Office Center[address] [address] DEA BHAT MD Blood BLOOD SPECIMEN / Unknown 04/02/2023 1:08 PM CDT 04/02/2023 9:27 PM CDT Marietta Ochoa MANAGER GENERATION-CHEMOTHERAPIST LAB - CHEMI STRY ORDERABLES Performing Organization Address City/[facility]/ZIP Co de Phone Number [address] [address] * (ABNORMAL) LIPID PROFILE W LDL/HDL (PO [...] AM CDT Narrative Resulting Agency Comment [facility] [address] [phone] Anneliese Bowers MD LAB - CHEMISTRY [facility]ELIT[facility] ACCOUNT BILL from Last 3 Months or Most Recently Relevant to Health Maintenance Insurance Payer Benefit Plan / Group Subscriber ID Effective Dates Phone Address Type [facility] MANAGED MEDICARE ADV [facility] MEDICARE ADV HMO/POS [id number] 06/03/2023-Pres ent [address] [address] [place] [address] Medicare-Man aged Care MEDICARE WPS MEDICARE PART B [id number] 02/01/2018-Pres ent [address] [address] [place] [address] Medicare MEDICAID - OUT OF PENDING SALE TO [facility] MEDICAID [facility] PUBLIC AID [id number] Effective for all dates [address] [address] [place] [address] Medicaid [facility] CHOICE/SELECT /CHOICE PLUS/ALL PAYORS [id number] 11/03/2014-Pres ent [address] [address] [place] [address] HMO MEDICARE WPS MEDICARE PART B [id number] 02/01/2018-Pres ent [address] [address] [place] [address] Medicare MEDICAID - OUT OF PENDING SALE TO [facility] MEDICAID [facility] PUBLIC AID [id number] Effective for all dates [address] [address] [place] [address] Medicaid MEDICARE WPS MEDICARE PART B [id number] 02/01/2018-Pres ent [address] [address] [place] [address] Medicare MEDICAID - OUT OF STATE MEDICAID [facility] PUBLIC AID [id number] Effective for all dates [address] [address] [place] [address] Medicaid [facility] CHOICE/SELECT /CHOICE PLUS/ALL PAYORS [id number] 11/03/2014-Pres ent [address] [address] [place] [address] HMO MEDICARE WPS MEDICARE PART B [id number] Effective for all dates [address] [address] [place] [address] Medicare MEDICAID - OUT OF STATE MEDICAID [facility] PUBLIC AID [id number] Effective for all dates [address] [address] [place] [address] Medicaid [facility] CHOICE/SELECT /CHOICE PLUS/ALL PAYORS [id number] 11/03/2014-Pres ent [address] [address] [place] [address] O MEDICARE S MEDICARE PART B [id number] Effective for all dates [address] [address] [place] [address] Medicare MEDICAID - OUT OF STATE MEDICAID [facility] PUBLIC AID [id number] Effective for all dates [address] [address] [place] [address] Medicaid MEDICARE WPS MEDICARE PART B [id number] Effective for all dates [address] [address] [place] [address] Medicare MEDICARE WPS MEDICARE PART B [id number] Effective for all dates [address] [address] [place] [address] Medicare MEDICARE WPS MEDICARE PART B [id number] Effective for all dates [address] [address] [place] [address] Medicare [employer] UHC CHOICE/SELECT /CHOICE PLUS/ALL PAYORS [id number] 11/03/2014-Pres ent [address] [address] [place] [address] [place] - [place] [facility] [id number] Effective for all dates ATTN: JANEE JUDD G [address] [place] [address] Medicaid [place] MED[place] - [place] [facility] [id number] Effective for all dates ATTN: WIPRO INFOCROSSIN G [address] [place] [address] Medicaid MEDICAID - [place] MED[place] - [place] MED[place]ID [id number] 03/25/2023-Pre sent [address] [address] [place] [address] Medicaid [place] Care Teams Exhaust Worker Relationship Specialty Start Date End Date Garrick Ruiz MD [address] [place] [phone] PCP - General Family Medicine 07/03/23 Allison Palacios MD Oncology 03/21/15
--- OUTSIDE RECORDS SUMMARY | 2024-12-29 15:30 | XMS_ITS | Encounter Summary ---
Author Organization [facility] Address [address] [place] [address] Care Team Providers Care Patient Financial Specialist Name Role Phone Garrick Ruiz MD Primary Care Provider Encounter Details Date Type Department Care Team (Late st Contact Info) Description 06/02/2020 Telephone [facility] Pulmonary Rehab [address] [place] [address] Moriah Marie, FISH DRESSING MACHINE FEEDER Social History Tobacco Use Types Packs/Day Years Used Date Smoking Tobacco: Former Cigarettes 0.8 47 1 - 08/07/2018 E-Cigarette/Mist Inhalation Device Smokeless Tobacco: Never Comments:daily vaping Alcohol Use Standard Drinks/Week Comments Yes 0 [...] declined 04/09/2019 How often do you attend hindu or yazdanism serv ices? Patient declined 04/09/2019 Do you belong to any clubs o r organizations such as hindu groups, unions, fraternal or athletic groups, or [...] on file Legal Sex Female 5:39 AM [employer]ELATIN [employer] Gender Identity Not on file Sexual Orientation Not on file Occupation Industry Job Start Date Job End Date Not on file Not on file Not on file Not on file COVID-19 Exposure Response Date Recorded In the last month, have you been in contact with someone who was confirmed or suspected to have Coronavirus / COVID-19? No / Unsure 05/19/2020 3:53 PM CDT documented as of this encounter Plan of Treatment Upcoming Encounters Date Type Department Care Team (Late st Contact Info) Description 09/01/2025 2:30 PM CDT Office Visit [facility] Oncology and Hematology - [place] [address] [place] [address] Ricardo Cano MD [address] [facility] [address] [place] [address] documented as of this encounter Visit Diagnoses Diagnosis Chronic obstructive pulmonary disease, unspecified COPD type (CMS/HCC)- Primary documented in this encounter Additional Health Concerns Assessment Noted Time PHQ-9 Depression Total Score: 1 05/17/20 20 3:00 PM CDT documented as of this encounter Care Teams Patient Financial Specialist Relationship Specialty Start Date End Date Garrick Ruiz MD [address] [place] [phone] PCP - General Family Practice 01/08/22 documented as of this encounter
--- OUTSIDE RECORDS SUMMARY | 2024-12-29 15:30 | XMS_ITS | Patient Health Summary ---
Author Organization [facility] Address [address] [place] [address] Care Team Providers Care Forming Department End Finder Name Role Phone Allison Palacios MD Unavailable Garrick Ruiz MD Primary Care Provider Note from [facility],non-owned Affiliates and Associated Physician Practices is amultiple site organization consisting of ambulatory clinics and hospital sitesin [place], [place], [place] and [place]. This disclosure is being madepursuant to the Care Everywhere program and may not contain all information available regarding this patient. Last updated 18.[facility] Allergies * Etoposide(Other) -Medium Criticality Medications * Be aware that medications may not be up to date on this document. Alwaysverify current medications with the patient. * ibuprofen (MOTRIN) 200 MG tablet Take 1 (one) tablet by mouth once daily * levothyroxine (Synthroid) 50 MCG tablet(Started 04/01/2023) Take 1 (one) tablet by mouth once daily * cetirizine (ZyrTEC) 10 MG tablet Take 1 (one) tablet by mouth once daily * nystatin (Mycostatin) 725324 UNIT/GM ointment(Started 07/03/2023) Apply to affected area 3 times daily as needed 2 refills by 07/02/2024 * methylPREDNISolone (Medrol Dosepak) 4 MG tablet(Started 07/10/2023) Take by mouth as directed * vitamin D (Cholecaciferol) 125 MCG (5000 UT) capsule Take 1 (one) capsule by mouth once daily * Multiple Vitamins-Minerals (WOMENS 50+ MULTI VITAMIN/MIN PO) Take 1 tablet by mouth once daily * omeprazole (PriLOSEC) 20 MG capsule Take 1 (one) capsule by mouth daily before breakfast * boric acid 600 mg vaginal capsule Insert 1 (one) capsule into the vagina Two times a week Active Problems Problem Noted Date Diagnosed Date Acquired hypothyroidism 03/05/2021 04/02/20 23 Hyperlipidemia 02/18/2021 04/02/2023 Seasonal allergies 02/18/2021 04/02/2023 Malignant neoplasm of upper lobe of right lung 0 01/30/2021 04/02/2023 Prediabetes 09/29/2019 04/02/2023 Anemia in neoplastic disease 06/29/2019 Thrombocythemia 06/08/2019 04/02/2023 Small cell lung cancer 04/13/2019 Allergic rhinitis 08/03/2018 04/02/2023 Chronic bronchitis 05/20/2016 04/02/2023 Vitamin D deficiency 04/05/2015 IGT (impaired glucose tolerance) 04/05/2015 Tobacco use disorder 03/21/2015 Hot flashes 03/21/2015 Colon polyp 03/21/2015 MVP (mitral valve prolapse) 03/21/2015 History of breast cancer 03/21/2015 GERD (gastroesophageal reflux disease) 5 Chronic obstructive pulmonary disease 04/01/2013 Malignant neoplasm of upper- outer quadrant of left female breast 07/07/2009 04/02/2023 Immunizations * PNEUMOCOCCAL PPSV23(Given 08/09/2015) * TDAP (7yrs+)(Given 08/09/2015) Social History Tobacco Use Types Packs/Day Years [...] Mass Index 30.43 07/11/2023 1:38 PM CDT Procedures * DERMATOPATHOLOGY(Performed 11/15/2024) * CO INSERT NON-INDWELLING BLADDER(Performed 07/11/2023) Performed for Mixed stress and urge urinary incontinence * URINALYSIS AUTO - POINT OF CARE (AMB) [facility](Performed 07/11/2023) Performed for Mixed stress and urge urinary incontinence * HEMOGLOBIN A1C(Performed 04/02/2023) Performed for Vulvar itching, Fungal infection, Pre-diabetes * SUSCEPTIBILITY YEAST(Performed 04/02/2023) * CULTURE YEAST(Performed 04/02/2023) Performed for Vulvar itching, Fungal infection * DERMATOPATHOLOGY(Performed 01/29/2023) * DERMATOPATHOLOGY(Performed 07/23/2021) * DERMATOPATHOLOGY(Performed 06/20/2021) * PAP IG LB RFLX HPV APTIMA ASCU(Performed 08/09/2015) Performed for Physical exam, routine * URINALYSIS MICROSCOPIC ONLY REFLEXED(Performed 03/25/2015) Performed for Hot flashes * URINALYSIS REFLEX MICROSCOPIC REFLEX CULTURE(Performed 03/25/2015) Performed for Hot flashes * T4 FREE(Performed 03/25/2015) Performed for Hot flashes * TSH(Performed 03/25/2015) Performed for Hot flashes * CBC W AUTO DIFFERENTIAL(Performed 03/25/2015) Performed for Hot flashes * COMPREHENSIVE METABOLIC PANEL(Performed 03/25/2015) Performed for Lipid screening * LIPID PROFILE W LDL/HDL RATIO(Performed 03/25/2015) Performed for Lipid screening * XR CHEST 2VW(Performed 03/23/2015) Performed for Tobacco use disorder, Cough * PFT-LAB(Performed 04/22/2013) * VITAMIN D 25-HYDROXY(Performed 04/05/2013) * HEMOGLOBIN A1C(Performed 04/05/2013) * TSH(Performed 04/05/2013) * COMPREHENSIVE METABOLIC PANEL(Performed 04/05/2013) * CBC W AUTO DIFFERENTIAL(Performed 04/05/2013) * LIPID PROFILE(Performed 04/05/2013) * PATHOLOGY/CYTOLOGY REPORT ORDER(Performed 09/18/2011) * GROSS + MICRO EXAM(Performed 11/21/2006) Results * DERMATOPATHOLOGY (11/15/2024 12:43 PM SELVAGE MACHINE OPERATOR) Only the most recent of4 resultswithin the time period is included. Case Report Dermatopathology Report Case: [id number] Authorizing Provider: Stephany Hudson PA Collected: 11/15/2024 12:43 PM Ordering Location: [facility] - Received: 11/16/2024 02:03 PM DermPath Lab Pathologist: Flor Zheng MD Specimen: Skin, left scalp 3:17 PM [facility] DERMATOPATHOLOGY LABORATORY Final Diagnosis Specimen A. SKIN, [...] characteristic determined by the Dermatopathology Laboratory at [facility], directed by Dr. Oliver Elmore. These tests need not be, and therefore are not, approved by the [place] Food and Drug Administration. The tests are used for clinical purposes. Billing Codes Specimen Charges Stain Charges 75388 1 3:17 PM SELVAGE MACHINE OPERATOR DERMATOPATHOLOGY LABORATORY Embedded Images 3:17 PM SELVAGE MACHINE OPERATOR DERMATOPATHOLOGY LABORATORY Pathology/Cytolo gy TISSUE SPECIMEN FROM SKIN / Unknown 11/15/2024 12:43 PM SELVAGE MACHINE OPERATOR 11/16/2024 2:03 PM SELVAGE MACHINE OPERATOR Stephany GLASS LAB - PATHOLOGY/CYTO LOGY ORDERABLES DERMATOPATHOLOGY LABORATORY [facility] - Department of Dermatology [address], [address] Floor [address] [phone] * CO INSERT NON-INDWELLING BLADDER (07/11/2023 2:48 PM CDT) Narrative Edelmira Castellano MD - 07/11/2023 2:48 PM CDT Edelmira Castellano MD 07/11/2023 2:50 PM Procedure note: Straight catheterization was performed after swabbing the urethra with betadine. A 14 Fr urethral catheter was inserted without difficulty and the bladder was drained for 3 mL. The patient tolerated the procedure well. Edelmira Csatellano MD PROCEDURE/MINOR TRISTON GICAL ORDERABLES * URINALYSIS AUTO - POINT OF CARE (AMB) [facility] (07/11/2023 2:32 PM CDT) Glucose UA NEG [facility] [address] Bilirubin UA POCT NEG [facility] [address] Ketones UA POCT NEG [facility] [address] Specific Center [place] UA 1.[address] [facility] [address] Blood Urine POCT NEG [facility] [address] pH UA 5.[address] [facility] [address] Protein UA NEG [facility] [address] Urobilinogen UA NEG [facility] [address] Nitrite UA NEG [facility] [address] WBC UA NEG [facility] [address] Urine URINE / Unknown 07/11/2023 2 :32 PM CDT Edelmira Castellano MD LAB - POINT OF CARE ORDERABLES Performing Organization Address City/[facility]/ZIP Co de Phone Number THAI [address] [place] [address] [phone] * SUSCEPTIBILITY YEAST (04/02/2023 1:08 PM CDT) Source VULVA [facility] Organism ID MARGY GLABRATA [facility] Amphotericin B 0.500 mcg/mL [facility] Anidulafungin 0.060 S mcg/mL [facility] Caspofungin 0.120 S mcg/mL [facility] Fluconazole 64 R mcg/mL [facility] 5-Flucytosine <=0.060 mcg/mL [facility] Itraconazole 1 mcg/mL [facility] Micafungin <=0.008 S mcg/mL [facility] Posaconazole 2 mcg/mL [facility] Voriconazole 1 mcg/mL [facility] Comment SEE BELOW [facility] Comment: Drug concentrations are expressed in mcg/mL. S = Susceptible S-DD = Susceptible-Dose Dependent I = Intermediate R = Resistant Susceptible Dose Dependent (S-DD): susceptibility is dependent on achieving maximum blood levels. CATARINA interpretations are based on recently published CLSI guidelines. Only the CATARINA value is reported when CLSI guidelines are not available. This test was performed using a kit that has not been cleared or approved by the FDA. The analytical performance characteristics of this test have been determined by [facility]. This test should not be used for diagnosis without confirmation by other medically established means. Test Performed at: [email or web address] [id number] [place] [address] SHAHLA GOLDSMITH MD,PHD,BERTRAND 04/02/2023 1:08 PM CDT 04/02/2023 9:27 PM CDT [facility] - MICRO BIOLOGY ORDERABLES Performing Organization Address City/[facility]/ZIP Co de Phone Number [facility] [address] [place] [address] * (ABNORMAL) CULTURE YEAST (04/02/2023 1:08 PM CDT) Culture Yeast with ID (A) [facility] Comment: CULTURE, YEAST, W/IDENTIFICATION Micro Number: [id number] Test Status: Final Specimen Source: Vulva Specimen Quality: Adequate Result: Margy glabrata Isolate forwarded to [facility] for Susceptibility Testing. Test Performed at: [email or web address] [phone] DEA BHAT MD Microbiology ENTIRE VULVA / Unknown 04/02/2023 1:08 PM CDT 04/02/2023 9:27 PM CDT [facility] - MICRO BIOLOGY ORDERABLES Performing Organization Address [facility]/[place] [address] * HEMOGLOBIN A1C (04/02/2023 1:08 PM CDT) Only the most recent of2 resultswithin the time period is included. Pathologist [facility] Hemoglobin A1c TNP % of total Hgb [facility] Comment: TEST NOT PERFORMED No suitable specimen received. Please review the test requirements at testAll Def [email or web address] Test Performed at: [email or web address] [phone] DEA BHAT MD Blood BLOOD SPECIMEN / Unknown 04/02/2023 1:08 PM CDT 04/02/2023 9:27 PM CDT [facility] - CHEMI [place] [address] * PAP IG RFLX HPV ASCU (PO REF LAB) (08/09/2015 3:37 PM CDT) Diagnosis [facility] ACCOUNT BILL Comment:NEGATIVE FOR INTRAEP ITHELIAL LESION AND MALIGNANCY. Specimen Adequacy [facility] ACCOUNT BILL Comment: Satisfactory for evaluation. Endocervical and/or squamous metaplastic cells (endocervical component) are present. Clinician Provided ICD10 [facility] ACCOUNT BILL Comment:Z00.00 Performed by [facility] ACCOUNT BILL Comment:Micah Pal [facility] otechnologist (ASCP) Comment . [facility] ACCOUNT BILL Note [facility] ACCOUNT BILL Comment: The Pap smear is a screening test designed to aid in the detection of premalignant and malignant conditions of the uterine cervix. It is not a diagnostic procedure and should not be used as the sole means of detecting cervical cancer. Both false-positive and false-negative reports do occur. . IGLBP CPT Code Automation [facility] ACCOUNT BILL Comment: This liquid based ThinPrep(R) pap test was screened with the use of an image guided system. Note [facility] ACCOUNT BILL Comment: The HPV DNA reflex criteria were not met with this specimen result therefore, no HPV testing was performed. . MICROSCOPIC CYTOLOGIC EXAMINATION OF SMEAR OF SPECIMEN FROM FEMALE GENITAL TRACT PREPARED USING PAPANICOLAOU TECHNIQUE / Unknown 08/09/2015 3:37 PM CDT 08/10/2015 3:31 AM CDT Narrative [facility] ACCOUNT BILL - 08/14/2015 8:06 AM CDT No. of containers..01 CYTYC Thin Prep Vial Resulting Agency Comment [facility] [address] [phone] Anneliese Bowers MD LAB - PATHOLOGY/CYTO LOGY ORDERABLES [facility] ACCOUNT BILL * URINALYSIS MICROSCOPIC ONLY REFLEXED (PO REF LAB) (03/25/2015 7:47 AM CDT) WBC UA 0-5 0 - 5 /hpf [facility] ACCOUNT BILL RBC UA 0-2 0 - 2 /hpf [facility] ACCOUNT BILL Epithelial Cells (non renal) 0-10 0 - 10 /hpf [facility] ACCOUNT BILL Epithelial Cells (renal) NOT NEEDED [facility] ACCOUNT BILL Comment:Ancillary determined the test is not needed Casts ua NOT NEEDED [facility] ACCOUNT BILL Comment:Ancillary determined the test is not needed Casts UA NOT NEEDED [facility] ACCOUNT BILL Comment:Ancillary determined the test is not needed Crystals UA NOT NEEDED [facility] ACCOUNT BILL Comment:Ancillary determined the test is not needed Crystals UA NOT NEEDED [facility] ACCOUNT BILL Comment:Ancillary determined the test is not needed Mucus UA Present Not Estab. [facility] ACCOUNT BILL Bacteria UA None seen None seen/Few [facility] ACCOUNT BILL Yeast UA NOT NEEDED [facility] ACCOUNT BILL Comment:Ancillary determined the test is not needed Trichomonas UA NOT NEEDED [facility] ACCOUNT BILL Comment:Ancillary determined the test is not needed Comment Urine NOT NEEDED [facility] ACCOUNT BILL Comment:Ancillary determined the test is not needed 03/25/2015 7:47 AM CDT 03/25/2015 10:57 AM CDT Narrative Resulting Agency Comment [facility] [address] [phone] Anneliese Bowers MD LAB - URINALYSIS ORD ERABLES [facility] ACCOUNT BILL * URINALYSIS ROUTINE W/REFLEX TO CULTURE (03/25/2015 7:47 AM CDT) Specific Center [place] UA 1.017 1.005 - 1.030 [facility] ACCOUNT BILL pH UA 6.0 5.0 - 7.5 [facility] ACCOUNT BILL Color UA Yellow Yellow [facility] ACCOUNT BILL Appearance Clear Clear [facility] ACCOUNT BILL Leukocyte UA Negative Negative [facility] ACCOUNT BILL Protein UA Negative Negative/Tra ce [facility] ACCOUNT BILL Glucose UA Negative Negative [facility] ACCOUNT BILL Glucose Reflex NOT NEEDED [facility] ACCOUNT BILL Comment:Ancillary determined the test is not needed Ketone UA Negative Negative [facility] ACCOUNT BILL Occult Blood Urine Negative Negative [facility] ACCOUNT BILL Bilirubin UA Negative Negative [facility] ACCOUNT BILL Urobilinogen 0.2 0.0 - 1.9 mg/dL [facility] ACCOUNT BILL Nitrite UA Negative Negative [facility] ACCOUNT BILL Microscopic Examination Urine [facility] ACCOUNT BILL Comment:Microscopic follows if indicated. Microscopic Examination Urine See below: [facility] ACCOUNT BILL Comment:Microscopic was osman cated and was performed. Urinalysis Reflex [facility] ACCOUNT BILL Comment:This specimen will n ot reflex to a Urine Culture. Urine specimen (specimen) URINE SPECIMEN OBTAINED BY CLEAN CATCH PROCEDURE / Unknown 03/25/2015 7:47 AM CDT 03/25/2015 10:57 AM CDT Narrative Resulting Agency Comment [facility] [place] [address] [facility] [phone] Anneliese Bowers MD LAB - URINALYSIS ORD MEKA Performing Organization Address [facility] Co de Phone Number [facility] ACCOUNT BILL * (ABNORMAL) LIPID PROFILE W LDL/HDL (PO [...] AM CDT Narrative Resulting Agency Comment [facility] [place] [address] [facility] [phone] Anneliese Bowers MD LAB - CHEMISTRY YELITZA WOOD Performing Organization Address City/[facility]/ZIP Co de Phone Number [facility] ACCOUNT BILL * CBC W AUTO DIFFERENTIAL (03/25/2015 7:47 AM CDT) Only the most recent of2 resultswithin the time period is included. WBC 8.0 3.4 - 10.8 x10E3/uL [facility] ACCOUNT BILL RBC 4.90 3.77 - 5.28 x10E6/uL [facility] ACCOUNT BILL Hemoglobin 15.2 11.1 - 15.9 g/dL [facility] ACCOUNT BILL Hematocrit 46.1 34.0 - 46.6 % [facility] ACCOUNT BILL MCV 94 79 - 97 fL [facility] ACCOUNT BILL MCH 31.0 26.6 - 33.0 pg [facility] ACCOUNT BILL MCHC 33.0 31.5 - 35.7 g/dL [facility] ACCOUNT BILL RDW 13.5 12.3 - 15.4 % [facility] ACCOUNT BILL Platelet Count 284 150 - 379 x10E3/uL [facility] ACCOUNT BILL Granulocytes % 55 % [facility] ACCOUNT BILL Lymphocytes % 34 % [facility] ACCOUNT BILL Monocytes % 8 % [facility] ACCOUNT BILL Eosinophils % 2 % [facility] ACCOUNT B[facility] Basophils % 1 % [facility] ACCOUNT BILL Immature Cells NOT NEEDED [facility] ACCOUNT BILL Comment:Ancillary determined the test is not needed Granulocytes Absolute 4.4 1.4 - 7.0 x10E3/uL [facility] ACCOUNT BILL Lymphocytes Absolute 2.7 0.7 - 3.1 x10E3/uL [facility] ACCOUNT BILL Monocytes Absolute 0.6 0.1 - 0.9 x10E3/uL [facility] ACCOUNT BILL Eosinophils Absolute 0.2 0.0 - 0.4 x10E3/uL [facility] ACCOUNT BILL Basophils Absolute 0.0 0.0 - 0.2 x10E3/uL [facility] ACCOUNT BILL Immature Granulocytes 0 % [facility] ACCOUNT BILL Immature Granulocytes Absolute 0.0 0.0 - 0.1 x10E3/uL [facility] ACCOUNT BILL nRBC NOT NEEDED [facility] ACCOUNT BILL Comment:Ancillary determined the test is not needed Comment Hematology NOT NEEDED [facility] ACCOUNT BILL Comment:Ancillary determined the test is not needed Blood specimen (specimen) BLOOD SPECIMEN / Unknown 03/25/2015 7:47 AM CDT 03/25/2015 10:57 AM CDT Narrative Resulting Agency Comment [facility] [address] [phone] Anneliese Bowers MD LAB - HEMATOLOGY ORD ERABLES [facility] ACCOUNT BILL * (ABNORMAL) COMPREHENSIVE METABOLIC PANEL (03/25/2015 7:47 AM CDT) Only the most recent of2 resultswithin the time period is included. Glucose 104(H) 65 - 99 mg/dL [facility] ACCOUNT BILL BUN 18 8 - 27 mg/dL [facility] ACCOUNT BILL Creatinine 0.71 0.57 - 1.00 mg/dL [facility] ACCOUNT BILL eGFR by MDRD 92 >59 mL/min/1.7 3 [facility] ACCOUNT BILL eGFR by MDRD 106 >59 mL/min/1.7 3 [facility] ACCOUNT BILL BUN/Creatinine Ratio 25 11 - 26 [facility] ACCOUNT BILL Sodium 141 134 - 144 mmol/L [facility] ACCOUNT BILL Potassium 4.4 3.5 - 5.2 mmol/L [facility] ACCOUNT BILL Chloride 102 97 - 108 mmol/L [facility] ACCOUNT BILL CO2 25 18 - 29 mmol/L [facility] ACCOUNT BILL Calcium 9.4 8.7 - 10.3 mg/dL [facility] ACCOUNT BILL Protein Total 6.6 6.0 - 8.5 g/dL [facility] ACCOUNT BILL Albumin 4.3 3.6 - 4.8 g/dL [facility] ACCOUNT BILL Globulin Total 2.3 1.5 - 4.5 g/dL [facility] ACCOUNT BILL Albumin/Globulin Ratio 1.9 1.1 - 2.5 [facility] ACCOUNT BILL Bilirubin Total 0.2 0.0 - 1.2 mg/dL [facility] ACCOUNT BILL Alkaline Phosphatase 102 39 - 117 IU/L [facility] ACCOUNT BILL AST 20 0 - 40 IU/L [facility] ACCOUNT BILL ALT 17 0 - 32 IU/L [facility] ACCOUNT BILL Blood specimen (specimen) BLOOD SPECIMEN / Unknown 03/25/2015 7:47 AM CDT 03/25/2015 10:57 AM CDT Narrative Resulting Agency Comment [facility] [address] [phone] Anneliese Bowers MD LAB - CHEMISTRY YELITZA WOOD [facility] ACCOUNT BILL * TSH (03/25/2015 7:47 AM CDT) Only the most recent of2 resultswithin the time period is included. TSH 2.320 0.450 - 4.500 uIU/mL [facility] ACCOUNT BILL Blood specimen (specimen) BLOOD SPECIMEN / Unknown 03/25/2015 7:47 AM CDT 03/25/2015 10:57 AM CDT Narrative Resulting Agency Comment [facility] [place] [address] [facility] [phone] Anneliese Bowers MD LAB - CHEMISTRY YELITZA WOOD [facility] ACCOUNT BILL * T4 FREE (03/25/2015 7:47 AM CDT) T4 Free 0.93 0.82 - 1.77 ng/dL [facility] ACCOUNT BILL Blood specimen (specimen) BLOOD SPECIMEN / Unknown 03/25/2015 7:47 AM CDT 03/25/2015 10:57 AM CDT Narrative Resulting Agency Comment [facility] [place] [address] [facility] [phone] Anneliese Bowers MD LAB - CHEMISTRY YELITZA WOOD Performing Organization Address City/[facility]/ZIP Co de Phone Number [facility] ACCOUNT BILL * XR CHEST PA AND LATERAL (03/23/2015 3:25 PM CDT) Anatomical Region Laterality Modality Chest Radiographic Alyssia ging 03/23/2015 4:23 PM CDT Impressions 03/23/2015 4:25 PM CDT Emphysema without focal consolidation. Narrative 03/23/2015 4:25 PM CDT Examination: Chest 2 views History: Tobacco use disorder Findings: 2 views of the chest were performed without prior comparison. Patchy likely atelectasis is seen at the lung bases. There is no pleural effusion or. Emphysema is present. Heart size is normal. Surgical clips are noted in the left axilla. Procedure Note Raj Nuno MD - 03/23/2015 Examination: Chest 2 views History: Tobacco use disorder Findings: 2 views of the chest were performed without prior comparison. Patchy likely atelectasis is seen at the lung bases. There is no pleural effusion or. Emphysema is present. Heart size is normal. Surgical clips are noted in the left axilla. IMPRESSION Emphysema without focal consolidation. Anneliese Bowers MD DIAGNOSTIC IMAGING O RDERABLES * COMPLETE PFT (04/22/2013) Anneliese Bowers MD RESPIRATORY THERAPY ORDERABLES * VITAMIN D 25-HYDROXY (04/05/2013) Blood specimen (specimen) BLOOD SPECIMEN / Unknown Anneliese Bowers MD LAB - CHEMISTRY YELITZA WOOD [facility] ACCOUNT BILL * LIPID PROFILE (04/05/2013) Blood specimen (specimen) BLOOD SPECIMEN / Unknown Anneliese Bowers MD LAB - CHEMISTRY YELITZA WOOD [facility] ACCOUNT BILL * PATHOLOGY/CYTOLOGY REPORT ORDER (09/18/2011) Anneliese Bowers MD LAB - PATHOLOGY/CYTO LOGY ORDERABLES * GROSS + MICRO EXAM (11/21/2006 2:28 PM SELVAGE MACHINE OPERATOR) Result CASE NUMBER [id number] Comment: ORDERING PHYSICIAN JODY PERDOMO SPECIMEN TYPE Polyp Colorectal-sigmoid Date 11/21/2006 Physician Richa Perdomo Gross Description The specimen is labeled with the patient's name, Fide Hayes, and sigmoid polyp. It consists of multiple harris red polyps. They range from 0.1 cm up to 2.5 x 1.5 x 1 cm. The largest polyp is serially sectioned and submitted entirely in cassettes A and B. All of the smaller polyp is submitted in cassette C. LW perez Microscopic Exam Sections of the sigmoid colon polyp show fragments of colonic mucosa displaying characteristics of tubular adenomas. No invasive malignancy is seen. Some sections show bleeding into the polyp head with extravasation of red blood cells and hemosiderin laden macrophages. DURGA josé Diagnosis [1] Sigmoid colon polyps -- Tubular adenomas DURGA josé [employer] cs Pathologist Edin Eldridge M.D. [place]. 11/22/2006 0955 <1> CPT code 27828 MISCELLANEOUS SAMPLES / Unknown 11/21/2006 2:28 PM SELVAGE MACHINE OPERATOR 11/21/2006 2:28 PM SELVAGE MACHINE OPERATOR Historical Provider LAB - PATHOLOGY/C YTOLOGY ORDERABLES Care Teams Forming Department End Finder Relationship Specialty Start Date End Date Garrick Ruiz MD [address] [place] [phone] PCP - General Family Medicine 07/03/23 Allison Palacios MD Oncology 03/21/15
--- OUTSIDE RECORDS SUMMARY | 2024-12-29 15:30 | XMS_ITS | Encounter Summary ---
Author Organization [facility] Address [address] [address] Care Team Providers Care Ux Consultant Name Role Phone Allison Palacios MD Unavailable [phone] Garrick Ruiz MD Primary Care Provider Reason for Visit * Reason Onset Date Comments Question 04/25/2023 Encounter Details Date Type Department Care Team (Late st Contact Info) Description 04/25/2023 Telephone [facility] [address] [facility] [address] [place] [address] Edelmira Castellano MD [address] [facility] [address] [place] [address] Question Social History Tobacco Use Types Packs/Day [...] on file Sexual Orientation Not on file COVID-19 Exposure Response Date Recorded In the last 10 days, have yo u been in contact with someone who was confirmed or suspected to have Coronavirus/COVID-19? No / Unsure 04/25/2023 9:51 AM CDT documented as of this encounter Miscellaneous Notes * Telephone Encounter - Barbara Carter - 04/25/2023 9:35 AM CDT Outbound call made to pt to reschedule her 06/13/2023 appt.. ( dr hunter be in office at that time) Waiting on pt to call back documented in this encounter Plan of Treatment Not on file documented as of this encounter Goals Goal Patient Goal Type Associated Problems Recent Progress Patient-Stated? Author Quit smoking / using tobacco Lifestyle Not on track( 015 3:03 PM CDT) Rashmi Guillaume documented as of this encounter Visit Diagnoses Not on filedocumented in this encounter Care Teams Ux Consultant Relationship Specialty Start Date End Date Garrick Ruiz MD [address] [place] [address] PCP - General Family Medicine 07/03/23 Allison Palacios MD Oncology 03/21/15 documented as of this encounter
--- OUTSIDE RECORDS SUMMARY | 2024-12-29 15:30 | XMS_ITS | Encounter Summary ---
Author Organization [facility] Address [address] [place] [address] Care Team Providers Care Milk Bottler Name Role Phone Allison Palacios MD Unavailable [phone] Garrick Ruiz MD Primary Care Provider Encounter Details Date Type Department Care Team (Late st Contact Info) Description 11/15/2024 Lab Requisition [facility] - DermPath Lab [address] [facility] [address] [facility] [place] [phone] Stephany Hudson PA [address] [place] [address] Social History Tobacco Use Types Packs/Day Years [...] as of this encounter Plan of Treatment Not on file documented as of this encounter Goals Goal Patient Goal Type Associated Problems Recent Progress Patient-Stated? Author Quit smoking / using tobacco Lifestyle Not on track( 015 3:03 PM CDT) No Rashmi Betancourt documented as of this encounter Procedures Procedure Name Priority Date/Time Associated Diagnosis Comments DERMATOPATHOLOGY Routine 11/15/2024 12:4 3 PM WARPER TENDER documented in this encounter Results * DERMATOPATHOLOGY (11/15/2024 12:43 PM WARPER TENDER) Case Report Dermatopathology Report Case: [id number] Authorizing Provider: Stephany Hudson PA Collected: 11/15/2024 12:43 PM Ordering Location: [facility] - Received: 11/16/2024 02:03 PM DermPath Lab Pathologist: Flor Zheng MD Specimen: Skin, left scalp 3:17 PM [facility] DERMATOPATHOLOGY LABORATORY Final Diagnosis Specimen A. SKIN, left scalp: SQUAMOUS CELL CARCINOMA IN SITU, PRESENT AT THE BASE OF THE SPECIMEN (D04.4) (see microscopic description and comment) OVERLYING CUTANEOUS HORN (L85.8) 3:17 PM [facility] DERMATOPATHOLOGY LABORATORY Clinical History R/O SCC; Growing 3:17 PM [facility] DERMATOPATHOLOGY LABORATORY Gross Description Specimen A: Received is one formalin filled container labeled with the patient's name and designated left scalp. The specimen consists of a shave biopsy measuring 10x9x5 mm. Jar 0. 3:17 PM [facility] DERMATOPATHOLOGY LABORATORY Microscopic Description Specimen A. SKIN, left scalp: The epidermis shows parakeratosis, full thickness disorderly maturation of keratinocytes, mitoses at different levels, and dyskeratotic cells. The lesion extends to the base of the biopsy. There is a column of marked compact hyperkeratosis. COMMENT: An invasive squamous cell carcinoma cannot be ruled out. 3:17 PM [facility] DERMATOPATHOLOGY LABORATORY Disclaimer An external and internal positive and negative controls are appropriate for the histochemical, immunohistochemical and immunofluorescence stain(s) in this case (if any), except where stated explicitly. The performance characteristics of the stain(s) cited in this report were developed and its performance characteristic determined by the Dermatopathology Laboratory at [facility], directed by Dr. Oliver Elmore. These tests need not be, and therefore are not, approved by the [place] Food and Drug Administration. The tests are used for clinical purposes. Billing Codes Specimen Charges Stain Charges 15240 1 3:17 PM WARPER TENDER DERMATOPATHOLOGY LABORATORY Embedded Images 3:17 PM WARPER TENDER DERMATOPATHOLOGY LABORATORY Pathology/Cytolo gy TISSUE SPECIMEN FROM SKIN / Unknown 11/15/2024 12:43 PM WARPER TENDER 11/16/2024 2:03 PM WARPER TENDER [facility] - PATHOLOGY/CYTO LOGY ORDERABLES DERMATOPATHOLOGY LABORATORY [facility] - Department of Dermatology [facility] [address] [place] [address], [address] [phone] documented in this encounter Visit Diagnoses Not on filedocumented in this encounter Care Teams Milk Bottler Relationship Specialty Start Date End Date Garrick Ruiz MD [address] [place] [address] PCP - General Family Medicine 07/03/23 Allison Palacios MD Oncology 03/21/15 documented as of this encounter
--- OUTSIDE RECORDS SUMMARY | 2024-12-29 15:30 | XMS_ITS | Clinical Summary ---
Author Organization [facility] Administrative Offices Address [address] [place] [address] Care Team Providers Care Operations Label Clerk Name Role Phone Garrick Ruiz MD Primary Care Provider Allergies Active Allergy Reactions Criticality Noted Date Comments Cat Dander Cough Low 09/23/2016 Dog Dander Cough Low 09/23/2016 Etoposide Dizziness Medium 07/11/2023 PASS OUT. Juniper Cough Low 09/23/2016 Mold Cough Low 09/23/2016 Tree Pollen-Red Maple Other (See Comments) 09/04 Nasal congestion , eye swelling [place] Other (See Comments) 09/23/2016 See other side effects Medications multivitamin (DAILY-KATHIA) Oral TabIndications:C ancer of breast (female),Cancer of female breast (CMS/HCC),Tobacc o dependence Take by mouth daily. Active cetirizine (ZyrTEC) 10 mg tabletIndication s:Non-seasonal allergic rhinitis due to pollen Take 1 Tablet (10 mg) by mouth daily. 90 Tablet 3 0 Active nystatin (NYSTOP) 100,000 unit/gram powderIndication s:Intertriginous dermatitis associated with moisture Apply to affected area 2 times daily. Apply to area above vaginal areas 60 Gram 0 Active levothyroxine 50 mcg tablet Take 50 mcg by mouth daily. 3 Active montelukast (SINGULAIR) 10 mg tablet TAKE 1 TABLET BY MOUTH NIGHTLY 90 Tablet 1 3 Active albuterol sulfate HFA 90 mcg/actuation aerosol inhaler Take 2 Puffs by inhalation every 8 hours as needed for Shortness of Breath. 18 Gram 6 4 Active Additional Information Patient taking differently:2 Puff Inhalation EVERY 8 HOURS PRN, Shortness of Breath,Ventolin, Reported on 02/24/2024 omeprazole (PriLOSEC) 20 mg Capsule, Delayed Release(E.C.) Take 20 mg by mouth daily. Active cholecalciferol, Vitamin D3, 125 mcg (5,000 unit) Capsule Take 5,000 Units by mouth daily. Active nystatin (MYCOSTATIN) 100,000 unit/gram Ointment Apply to affected area 3 times daily as needed. 3 Active oxyCODONE (ROXICODONE) 5 mg tabletIndication s:Acute medial meniscus tear of left knee, initial encounter Take 1 Tablet (5 mg) by mouth every 4 hours as needed for Pain. Max Daily Amount: 30 mg 15 Tablet 03/05/2024 9:20 AM CDT 4 Active ondansetron (Zofran) 4 mg Tablet Take 1 Tablet (4 mg) by mouth every 8 hours as needed for Nausea and Vomiting. 30 Tablet 03/05/2024 9:20 AM CDT 4 Active docusate sodium (Dulcolax Stool Softener, dss,) 100 mg capsule Take 1 Capsule (100 mg) by mouth 2 times daily. 30 Capsule 4 Active aspirin (ECOTRIN EC) 325 mg Tablet, Delayed Release (E.C.) Take 1 Tablet (325 mg) by mouth daily. 42 Tablet 4 Active acetaminophen (TYLENOL) 500 mg tablet Take 1 Tablet (500 mg) by mouth every 6 hours as needed for Pain. 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 Primary Care: Amirah Ralph MD Referring Provider: Amirah Ralph MD [address] [facility] [address] [place] [address] Other: Problem Noted Date Diagnosed Date Acute [...] months. Assessment & Plan (11/25/2019 12:38 PM POLYMER ENGINEER): I discussed the CT scan scan results [...] radical mastectomy. The tumor was ER positive, NM positive, HER-2/heidi negative. Assessment & Plan (05/09/2016 [...] 09/11. Assessment & Plan (10/19/2018 2:31 PM POLYMER ENGINEER): She remains in clinical complete remission. Advised [...] questions. Assessment & Plan (01/09/2011 3:25 PM POLYMER ENGINEER): Clinically there is no evidence of disease [...] questions. Assessment & Plan (01/03/2010 3:55 PM POLYMER ENGINEER): There is no evidence of for disease [...] well. Assessment & Plan (11/25/2019 12:39 PM POLYMER ENGINEER): She does not smoke any longer and [...] ago. Assessment & Plan (10/19/2018 2:35 PM POLYMER ENGINEER): Encouraged her to stay off smoking. Assessment [...] smoking. Assessment & Plan (01/09/2011 3:24 PM POLYMER ENGINEER): Patient continues to smoke cigarettes, but down to one pack of cigarettes per day. I have counseled her again at length to quit smoking. Assessment & Plan (07/11/2010 4:05 PM CDT): I have counseled her at length about smoking and its deleterious effects again. Assessment & Plan (01/03/2010 3:55 PM POLYMER ENGINEER): I have counseled her at length about the deleterious effect of smoking, and asked her to contact her PCP for a prescription for Chantix. She verbalized understanding. Resolved Problems Problem Noted Date Diagnosed Date Resolved Date Cataract, left 03/03/2017 03/12/2017 Cataract, right 02/17/2017 03/12/2017 Cancer of breast, female 07/07/200901/2010 Encounters Date Type Department Care Team Description 12/29/2024 2:45 PM POLYMER ENGINEER Office Visit [facility] Oncology and Hematology [facility] [address] [place] [phone] Ricardo Cano MD Small cell carcinoma of lung, unspecified laterality, unspecified part of lung (CMS/HCC) (Primary Dx); Malignant neoplasm of upper-outer quadrant of left breast in female, estrogen receptor positive (CMS/HCC) 12/21/2024 External Device Data STL ABSTRACTION Provider, Abstract 11/24/2024 External Device Data STL ABSTRACTION Provider, Abstract 11/24/2024 External Device Data STL ABSTRACTION Provider, Abstract 11/17/2024 External Device Data STL ABSTRACTION Provider, Abstract from Last 3 Months Immunizations Immunization Administration Dates Next Due (ADACEL/BOOSTRIX)(10 YR UP) TDAP VACCINE, 0.5ML, IM 08/09/2015 (PNEUMOVAX 23)(50 YRS UP) PN EUMOCOCCAL POLYSACCHARIDE (PPV23) 0.5 ML, IM 08/09/2015 (PREVNAR 13)(6 WKS UP) PNEUM OCOCCAL CONJUGATE (PCV13) 0.5 ML, IM 09/04/2018 INFLUENZA VACCINE HIGH DOSE QUADRIVALENT 65 YR UP PF IM 08/15/2021,08/28/2020 INFLUENZA VACCINE QUADRIVALENT 6 MOS UP IM 11/19 Influenza Vaccine High Dose 65+ Yrs IM 9,08/03/2018 Influenza Vaccine Split 3+ Yrs PF IM 09/23/2016 Influenza Vaccine Tri Split 5+ Im 07/29/2017 Pneumococcal Polysaccharide Vacc 23-сергей IM SCHIP 08/09/2015 Zoster Vaccine Live SQ 05/17/2020 Family History Medical History Relation Name Comments Other Father hernia Dementia Mother Diabetes Mother Diabetes Son 1 Colon Cancer Neg Hx Relation Name Status Comments Brother 1 Alive Brother 2 Alive Brother 3 Alive Daughter Alive Father Alive Mother Son 1 Alive Son 2 Alive Social History Tobacco Use Types Packs/Day Years [...] declined 04/09/2019 How often do you attend restoration or sikh serv ices? Patient declined 04/09/2019 Do you belong to any clubs o r organizations such as restoration groups, unions, fraternal or athletic groups, or [...] on file Legal Sex Female 5:39 AM POLYMER ENGINEER Gender Identity Not on file Sexual Orientation Not on file Occupation Industry Job Start Date Job End Date Not on file Not on file Not on file Not on file Last Filed Vital Signs Vital Sign Reading Time Taken Comments Blood Pressure 132/81 12/29/2024 2:15 PM POLYMER ENGINEER Pulse 97 12/29/2024 2:15 PM POLYMER ENGINEER Temperature 35.7 C (96.3 F) 12/29/2024 2:15 PM POLYMER ENGINEER Respiratory Rate 14 12/29/2024 2:15 PM POLYMER ENGINEER Oxygen Saturation 93% 12/29/2024 2:15 PM POLYMER ENGINEER Inhaled Oxygen Concentration - - Weight 73.5 kg (162 lb) 12/29/2024 2:15 PM POLYMER ENGINEER Height 160 cm (5' 3 ) 03/05/2024 6:28 AM CDT Body Mass Index 28.7 03/05/2024 6:28 AM CDT Plan of Treatment Upcoming Encounters Date Type Department Care Team (Late st Contact Info) Description 09/01/2025 2:30 PM CDT Office Visit [facility] Oncology and Hematology - [place] [address] [place] [address] Ricardo Cano MD [address] [facility] [address] [place] [address] Health Maintenance Due Date Last Done Comments FIT-DNA Q 3 years 1998 FIT/FOBT Q 1 year 1998 Flex Sig/CT Colonography Q 5 years 1998 RSV VACCINE (60+ or ) (1 - Risk 60-74 years 1-dose series) 2013 ZOSTER VACCINE (2 of 3) 07/12/2020 05/17/2020 PNEUMOCOCCAL VACCINE 65+ YEA RS (3 of 3 - PCV20 or PCV21) 09/04/2023 09/04/2018, 08/09/2015, 08/09/2015 COLORECTAL SCREENING 11/13/2023 11/13/2018, 11/13/2018, 11/13/2018 Colorectal Cancer Screening 11/13/2023 INFLUENZA VACCINE (#1) 2024 , 08/28/2020, 08/26/2019, Additional history exists COVID-19 Vaccine (3 - 2023-2 5 season) 2024 02/05/2021, 01/04/2021 [place] Preventative Visit/Annual Wellness Visit 11/03/2024 09/29/2019, 09/04/2018, 08/09/2015, Additional history exists DTAP/TDAP/TD VACCINES (2 - T d or Tdap) 08/09/2025 08/09/2015 OSTEOPOROSIS SCREENING Completed 04/28/2023, 2017 BREAST CANCER SCREENING Discontinued Medical Devices Implanted Type Area Production Supv Device Identifier Shelf Expiration Date Model / Serial / Lot Lens Io Acrysof Iq Ultrasert Au00t0.235 - [id number] Implanted:Qty: 1 on 02/18/2017 by Nas Griffiths MD at [facility] Right: Eye [facility] 07/03/2019 AU00T0.235 / [id number] / Lens Io Acrysof Iq Ultrasert Au00t0.245 - [id number] Implanted:Qty: 1 on 03/04/2017 by Nas Griffiths MD [place] [facility] Left: Eye [facility] 07/03/2019 AU00T0.245 / [id number] / Procedures Procedure Name Priority Date/Time Associated Diagnosis Comments COLONOSCOPY REPORT 11/13/2018 10 :43 AM POLYMER ENGINEER XR DEXA BONE DENSITY AXIAL 1 OR MORE SITES Routine 09/11/2018 1:50 PM POLYMER ENGINEER Asymptomatic postmenopausal state Screening for osteoporosis from Last 3 Months or Most Recently Relevant to Health Maintenance Results * COLONOSCOPY REPORT (11/13/2018 10:43 AM POLYMER ENGINEER) Narrative Procedure Note Elenita Mahoney DO - 11/13/2018 10:43 AM CST [facility] Patient Name: Fide Hayes Procedure Date: 11/13/2018 Date of : 1955 Admit Type: Outpatient Attending MD: Elenita Mahoney MD Procedure: Colonoscopy Indications: High risk colon cancer surveillance: Personal history of colonic polyps - Pt reports having colon polyps on her last colonoscopy test Providers: Elenita Mahoney MD Referring MD: Addie Mcfadden Medicines: Monitored Anesthesia Care Complications: No immediate complications. Procedure: Informed consent was obtained for the procedure, including moderate sedation after risks were discussed. Based on the pre-procedure assessment, including review of the patient's medical history, medications, allergies, and review of systems, the patient was deemed to be an appropriate candidate for sedation. A timeout was performed. Continuous ECG monitoring, pulse oximetry, blood pressure monitoring, and direct observation were performed. The scope was introduced through the anus and advanced to the terminal ileum. The colonoscopy was performed without difficulty. The patient tolerated the procedure well. The quality of the bowel preparation was good. Estimated Blood Loss: Estimated blood loss was minimal. Findings: The perianal examination was normal. Multiple diverticula were found in the sigmoid colon and descending colon. The terminal ileum appeared normal. Non-bleeding hemorrhoids were found during retroflexion. Impression: - Diverticulosis in the sigmoid colon and in the descending colon. - The examined portion of the ileum was normal. - Non-bleeding hemorrhoids. - No specimens collected. Recommendation: - High fiber diet. - Repeat colonoscopy in 5 years for surveillance. Elenita Mahoney MD 11/13/2018 10:42:56 AM This report has been signed electronically. Number of Addenda: [address]; [place] [address] Elenita Mahoney DO GI PROCEDURE ORDERABLES Fin al Result * XR DEXA BONE DENSITY AXIAL 1 OR MORE SITES (09/11/2018 1:50 PM POLYMER ENGINEER) Anatomical Region Laterality Modality Digital Radiogra phy 09/11/2018 1:51 PM POLYMER ENGINEER Impressions 09/11/2018 2:06 PM POLYMER ENGINEER IMPRESSION: This is a summary page. Please refer to the complete detailed report found in the Imaging Section of the [facility] EMR. Osteopenic femoral neck BMD. Lumbar Spine: T-Score: -0.9 Left Femoral Neck: T-Score: -1.4 Right Femoral Neck: T-Score: -1.8 Comments: L3-L4 excluded because of statistical variation. Statistical change: No prior exam is available. FRAX FRACTURE RISK ASSESSMENT: Risk factors: None. 10 Year Probability Of Fracture Major Osteoporotic: 9.7 % Hip: 1.2 % Comparison population: [place], Race: White A major osteoporotic fracture is defined as a fracture of the spine, forearm, hip or shoulder. Definitions: Normal: T-score above -1.0 Osteopenia T-score less than -1.0 and above -2.5 Osteoporosis: T-score <= -2.5 Follow-up Recommendations: Patients without high risk factors for osteoporosis T-score -1.0 to -1.5 - Consider repeat BMD in 5-10 years T-score -1.5 to - 2.0 - Consider repeat BMD in 3-5 years T-score -2.0 to - 2.5 - Consider repeat BMD every 2 years Patients on treatment for osteoporosis 1-2 years after initiation of treatment and every 2 years [address] Michi Garcia MD DICTATION LOCATION: 09/11/2018 2:06 PM POLYMER ENGINEER EXAMINATION: BONE DENSITY STUDY (DXA) DATE: 09/11/2018 1:50 PM HISTORY: 63 years Female. Postmenopausal. PROCEDURE: Planar images of the lumbar spine and hip(s) using a LUNAR DEXA scanner for bone mineral density determination (BMD). FINDINGS: Lumbar Spine (L1-L2): T-Score: -0.9 1.052 g/sq cm Left Femoral Neck: T-Score: -1.4 0.848 g/sq cm Right Total Femur: T-Score: -0.6 Right Femoral Neck: T-Score: -1.8 0.793 g/sq cm Right Total Femur: T-Score: -0.9 Procedure Note Michi Garcia MD - 09/11/2018 EXAMINATION: BONE DENSITY STUDY (DXA) DATE: 09/11/2018 1:50 PM HISTORY: 63 years Female. Postmenopausal. PROCEDURE: Planar images of the lumbar spine and hip(s) using a LUNAR DEXA scanner for bone mineral density determination (BMD). FINDINGS: Lumbar Spine (L1-L2): T-Score: -0.9 1.052 g/sq cm Left Femoral Neck: T-Score: -1.4 0.848 g/sq cm Right Total Femur: T-Score: -0.6 Right Femoral Neck: T-Score: -1.8 0.793 g/sq cm Right Total Femur: T-Score: -0.9 IMPRESSION: This is a summary page. Please refer to the complete detailed report found in the Imaging Section of the [facility] EMR. Osteopenic femoral neck BMD. Lumbar Spine: T-Score: -0.9 Left Femoral Neck: T-Score: -1.4 Right Femoral Neck: T-Score: -1.8 Comments: L3-L4 excluded because of statistical variation. Statistical change: No prior exam is available. FRAX FRACTURE RISK ASSESSMENT: Risk factors: None. 10 Year Probability Of Fracture Major Osteoporotic: 9.7 % Hip: 1.2 % Comparison population: [place], Race: White A major osteoporotic fracture is defined as a fracture of the spine, forearm, hip or shoulder. Definitions: Normal: T-score above -1.0 Osteopenia T-score less than -1.0 and above -2.5 Osteoporosis: T-score <= -2.5 Follow-up Recommendations: Patients without high risk factors for osteoporosis T-score -1.0 to -1.5 - Consider repeat BMD in 5-10 years T-score -1.5 to - 2.0 - Consider repeat BMD in 3-5 years T-score -2.0 to - 2.5 - Consider repeat BMD every 2 years Patients on treatment for osteoporosis 1-2 years after initiation of treatment and every 2 years thereafter [address] Michi Garcia MD DICTATION LOCATION: 1 Addie Mcfadden DO DIAGNOSTIC IMAGING ORDE RABLES Final Result from Last 3 Months or Most Recently Relevant to Health Maintenance Insurance [place]ID [place] [facility] [id number] RX EZ-[id number] Medicare Part B RX [employer] RX Member Subscriber Plan / Payer (Ef fective 2023-Present) Name:Fide Hayes Relation to Subscriber:Self Name:Fide Hayes Payer ID:Not on file Group ID:[facility] Type:RX Medicare Part D Address: [address] Guarantor: Fide Hayes Account Type Relation to Patient Date of Phone Billing Address Personal/Family Self 1955 [address] [place] [address] [address] [place] [id number] Advance Directives For more information, please contact: [phone] Documents on File Type Date Recorded Patient Power Press Supervisor Expl anation Advance Directive Living Will 06/28/2021 11:33 AM Advance Directive Living Will * Full Code (Latest Code Status on File) Date Activated Date Inactivated Comments 03/05/2024 5:46 AM 03/05/2024 11:43 AM * Full Code Date Activated Date Inactivated Comments 11/13/2018 9:58 AM 11/13/2018 2:20 PM * Full Code Date Activated Date Inactivated Comments 03/04/2017 9:23 AM 03/04/2017 12:31 PM * Full Code Date Activated Date Inactivated Comments 03/04/2017 7:34 AM 03/04/2017 9:23 AM * Full Code Date Activated Date Inactivated Comments 02/18/2017 8:34 AM 02/18/2017 10:48 AM Care Teams Operations Label Clerk Relationship Specialty Start Date End Date Garrick Ruiz MD [address] [place] [address] PCP - General Family Practice 01/08/22
[2024-12-29 17:48] LABS: Alanine Aminotransferase 27 U/L (6-35); Alkaline Phosphatase 104 U/L (38-126); Anion Gap 11 mmol/L (4-12); Aspartate Amino Transferase 58 U/L (14-36); Bilirubin,Total 0.7 mg/dL (0.2-1.3); Blood Urea Nitrogen 16 mg/dL (7-17); Calcium 9.3 mg/dL (8.4-10.2); Carbon Dioxide 24 mmol/L (22-30); Chloride 103 mmol/L (98-107); Estimated Glomerular Filt Rate > 60; Glucose 143 mg/dL (65-110); Potassium 3.6 mmol/L (3.4-5.0); Sodium 138 mmol/L (137-145)
== END 2024-12-29 13:42 | disposition home or self-care (01) ==
LOC: ANHLAB 13:42
PROVIDERS: PCP Family Medicine; Visit Provider Internal Medicine Hematology & Oncology
DX: C34.90 Malignant neoplasm of unspecified part of unspecified bronchus or lung (principal)
CPT/HCPCS: 36415; 80047; 80053; 85025

== ENCOUNTER 2025-01-20 10:48 | Outpatient (CLI) | payer MEDICARE, MEDICAID, SELFPAY ==
--- OUTSIDE RECORDS SUMMARY | 2025-01-20 11:38 | XMS_ITS | Encounter Summary ---
Author Organization [facility] Address [address] [place] [address] Care Team Providers Care Medical Delivery Driver Name Role Phone Garrick Ruiz MD Primary Care Provider Encounter Details Date Type Department Care Team (Late Contact Info) Description 05/16/2009 Outpatient Historical [facility], [address] Allison Palacios MD [address] [place] [address] Malignant Neoplasm of Breast (Female), Unspecified Site (CMS/HCC) Social History Tobacco Use Types Packs/Day Years Used Date Smoking Tobacco: Never Assessed Comments Unknown Sex and Gender Information Value Date Recorded Sex Assigned at Not on file Legal Sex Female 5:39 AM NON LINEAR EDITOR Gender Identity Not on file Sexual Orientation Not on file documented as of this encounter Plan of Treatment Upcoming Encounters Date Type Department Care Team ([facility] Contact Info) Description 09/01/2025 2:30 PM CDT Office Visit [facility] Oncology and Hematology - [place] [address] [facility] [address] [place] [address] Ricardo Cano MD [address] [facility] [address] [place] [address] documented as of this encounter Visit Diagnoses Diagnosis Malignant neoplasm of breast (female), unspecified site (CMS/HCC) Malignant neoplasm of breast (female), unspecified site documented in this encounter Care Teams Medical Delivery Driver Relationship Specialty Start Date End Date Garrick Ruiz MD [address] [place] [address] PCP - General Family Practice 01/08/22 documented as of this encounter
--- OUTSIDE RECORDS SUMMARY | 2025-01-20 11:39 | XMS_ITS | Clinical Summary ---
Author Organization [facility] Address [address] [place] [address] Care Team Providers Care Store Person Name Role Phone Allison Palacios MD Unavailable [phone] Garrick Ruiz MD Primary Care Provider Source Comments [facility],non-owned Affiliates and Associated Physician Practices is amultiple site organization consisting of ambulatory clinics and hospital sitesin [place], [place], [place] and [place]. This disclosure is being madepursuant to the Care Everywhere program and may not contain all information available regarding this patient. Last updated 18.[facility] Allergies Active Allergy Reactions Criticality Noted Date [...] by mouth once daily Active nystatin (Mycostatin) 099325 UNIT/GM ointmentIndications:F ungal infection Apply to affected [...] (04/02/2023): Dr. Ronni Florian -- Pulmonary with [facility] [phone] Last Assessment & Plan: Continue per PUlmonary Malignant neoplasm of upper- outer quadrant of left female breast 07/07/2009 04/02/2023 Overview (04/02/2023): Stage I (T1, N0, M0) diagnosed in 2003 and had modified radical mastectomy. The tumor was ER positive, [place] positive, HER-2/heidi negative. Last Assessment & Plan: [...] Department Care Team Description 11/15/2024 Lab Requisition [facility] - DermPath Lab [address] [facility] [address] [place] [address] Stephany Hudson PA from Last 3 Months [...] complete this topic MENINGOCOCCAL (Group B) VACCINE SHARED DECISION-MAKING Aged Out No longer eligible based on patient's age to complete this topic MENINGOCOCCAL GROUPS A/C/Y/W VACCINE Aged Out No longer eligible based on patient's age to complete this topic Goals Goal Patient Goal Type Associated Problems Recent Progress Patient-Stated? Author Quit smoking / using tobacco Lifestyle Not on track( 015 3:03 PM CDT) Rashmi Guillaume Procedures Procedure Name Priority Date/Time Associated Diagnosis Comments DERMATOPATHOLOGY Routine 11/15/2024 12:4 3 PM ICE HOCKEY COACH HEMOGLOBIN A1C Routine 04/02/2023 1:08 PM CDT Vulvar itching Fungal infection Pre-diabetes LIPID PROFILE W LDL/HDL RATIO Routine 03/25/2015 7:47 AM CDT Lipid screening from Last 3 Months or Most Recently Relevant to Health Maintenance Results * DERMATOPATHOLOGY (11/15/2024 12:43 PM ICE HOCKEY COACH) Case Report Dermatopathology Report Case: [id number] Authorizing Provider: Stephany Hudosn PA Collected: 11/15/2024 12:43 PM Ordering Location: [facility] - Received: 11/16/2024 02:03 PM DermPath Lab Pathologist: Flor Zheng MD Specimen: Skin, left scalp 3:17 PM [facility] DERMATOPATHOLOGY LABORATORY Final Diagnosis Specimen A. SKIN, left scalp: SQUAMOUS CELL CARCINOMA IN SITU, PRESENT AT THE BASE OF THE SPECIMEN (D04.4) (see microscopic description and comment) OVERLYING CUTANEOUS HORN (L85.8) 3:17 PM [facility] DERMATOPATHOLOGY LABORATORY Clinical History R/O SCC; Growing 3:17 PM ICE HOCKEY COACH DERMATOPATHOLOGY LABORATORY Gross Description Specimen A: Received is one formalin filled container labeled with the patient's name and designated left scalp. The specimen consists of a shave biopsy measuring 10x9x5 mm. Jar 0. 3:17 PM ICE HOCKEY COACH DERMATOPATHOLOGY LABORATORY Microscopic Description Specimen A. SKIN, left scalp: The epidermis shows parakeratosis, full thickness disorderly maturation of keratinocytes, mitoses at different levels, and dyskeratotic cells. The lesion extends to the base of the biopsy. There is a column of marked compact hyperkeratosis. COMMENT: An invasive squamous cell carcinoma cannot be ruled out. 3:17 PM [facility] DERMATOPATHOLOGY LABORATORY Disclaimer An external and internal positive and negative controls are appropriate for the histochemical, immunohistochemical and immunofluorescence stain(s) in this case (if any), except where stated explicitly. The performance characteristics of the stain(s) cited in this report were developed and its performance characteristic determined by the Dermatopathology Laboratory at [facility], directed by Dr. Oliver Elmore. These tests need not be, and therefore are not, approved by the [place] Food and Drug Administration. The tests are used for clinical purposes. Billing Codes Specimen Charges Stain Charges 34262 1 3:17 PM [facility] DERMATOPATHOLOGY LABORATORY Embedded Images 3:17 PM [facility] DERMATOPATHOLOGY LABORATORY Pathology/Cytolo gy TISSUE SPECIMEN FROM SKIN / Unknown 11/15/2024 12:43 PM ICE HOCKEY COACH 11/16/2024 2:03 PM ICE HOCKEY COACH Stephany GLASS LAB - PATHOLOGY/CYTO LOGY ORDERABLES DERMATOPATHOLOGY LABORATORY [facility] - Department of Dermatology [address], [address] [phone] * HEMOGLOBIN A1C (04/02/2023 1:08 PM CDT) Hemoglobin A1c TNP % of total Hgb [facility] Comment: TEST NOT PERFORMED No suitable specimen received. Please review the test requirements at testdirectory.[employer] Test Performed at: [facility] [address] DEA BHAT MD Blood BLOOD SPECIMEN / Unknown 04/02/2023 1:08 PM CDT 04/02/2023 9:27 PM CDT Marietta Ochoa FINISHING ROOM OPERATOR-REPULPING SUPERVISOR LAB - CHEMI STRY ORDERABLES [address] [address] * (ABNORMAL) LIPID PROFILE W LDL/HDL (PO [...] AM CDT Narrative Resulting Agency Comment [facility] [address] [phone] Anneliese Bowers MD LAB - CHEMISTRY [facility]ELIT[facility] ACCOUNT BILL from Last 3 Months or Most Recently Relevant to Health Maintenance Insurance Payer Benefit Plan / Group Subscriber ID Effective Dates Phone Address Type [facility] MANAGED MEDICARE ADV [facility] MEDICARE ADV HMO/POS [id number] 06/03/2023-Pres ent [address] [address] [place] [address] Medicare-Man aged Care MEDICARE WPS MEDICARE PART B [id number] 02/01/2018-Pres ent [address] [address] [place] [address] Medicare MEDICAID - OUT OF STATE MEDICAID [facility] PUBLIC AID [id number] Effective for all dates [address] [address] [place] [address] Medicaid [facility] CHOICE/SELECT /CHOICE PLUS/ALL PAYORS [id number] 11/03/2014-Pres ent [address] [address] [place] [address] HMO MEDICARE WPS MEDICARE PART B [id number] 02/01/2018-Pres ent [address] [address] [place] [address] Medicare MEDICAID - OUT OF STATE MEDICA[place] - [place] PUBLIC AID [id number] Effective for all dates [address] [address] [place] [address] Medicaid MEDICARE WPS MEDICARE PART B [id number] 02/01/2018-Pres ent [address] [address] [place] [address] Medicare MEDICAID - OUT OF STATE MEDICAID - [place] PUBLIC AID [id number] Effective for all dates [address] [address] [place] [address] Medicaid [facility] CHOICE/SELECT /CHOICE PLUS/ALL PAYORS [id number] 11/03/2014-Pres ent [address] [address] [place] [address] HMO MEDICARE WPS MEDICARE PART B [id number] Effective for all dates [address] [address] [place] [address] Medicare MEDICAID - OUT OF STATE MEDICAID - [place] PUBLIC AID [id number] Effective for all dates [address] [address] [place] [address] Medicaid [facility] CHOICE/SELECT /CHOICE PLUS/ALL PAYORS [id number] 11/03/2014-Pres ent [address] [address] [place] [address] O MEDICARE WPS MEDICARE PART B [id number] Effective for all dates [address] [address] [place] [address] Medicare MEDICAID - OUT OF STATE MEDICAID [facility] PUBLIC AID [id number] Effective for all dates [address] [address] [place] [address] Medicaid MEDICARE WPS MEDICARE PART B [id number] Effective for all dates [address] [address] [place] [address] Medicare MEDICARE WPS MEDICARE PART B [id number] Effective for all dates [address] [address] [place] [address] Medicare MEDICARE WPS MEDICARE PART B [id number] Effective for all dates [address] [address] [place] [address] Medicare [facility] CHOICE/SELECT /CHOICE PLUS/ALL PAYORS [id number] 11/03/2014-Pres ent [address] [address] [place] [address] O MED[place] - [place] [employer] [id number] Effective for all dates ATTN: JANEE DAVIDIN G [address] [place] [address] Medicaid [place] [employer] [id number] Effective for all dates ATTN: WIPRO INFOCROSSIN G [address] [place] [address] Medicaid [place] [id number] 03/25/2023-Pre sent [address] [address] [place] [address] Medicaid [place] Care Teams Store Person Relationship Specialty Start Date End Date Garrick Ruiz MD [address] [place] [address] PCP - General Family Medicine 07/03/23 Allison Palacios MD Oncology 03/21/15
--- OUTSIDE RECORDS SUMMARY | 2025-01-20 11:39 | XMS_ITS | Encounter Summary ---
Author Organization [facility] [facility] Address [address] [place] [address] Care Team Providers Care Manufacturing Chief Engineer Name Role Phone Garrick Ruiz MD Primary Care Provider Reason for Visit * Reason Onset Date Comments labs and ct order 08/23/2022 Encounter Details Date Type Department Care Team (Late st Contact Info) Description 08/23/2022 Telephone [facility] Oncology and Hematology - [place] [facility] Moi Mares [address] [address] Dwaine Phillips MD [address] [place] [address] [address] [place] [address] order Social [...] declined 04/09/2019 How often do you attend orthodoxy or hinduism serv ices? Patient declined 04/09/2019 Do you belong to any clubs o r organizations such as orthodoxy groups, unions, fraternal or athletic groups, or [...] on file Legal Sex Female 5:39 AM DIRECTOR BANKING Gender Identity Not on file Sexual Orientation [...] Description 09/01/2025 2:30 PM CDT Office Visit [facility] Oncology and Hematology [facility] [address] [facility] [address] [place] [address] Ricardo Cano MD [address] [facility] [address] [place] [address] documented as of this encounter Visit Diagnoses Diagnosis Small cell lung cancer (CMS/HCC)- Primary Malignant neoplasm of bronchus and lung, unspecified site documented in this encounter Additional Health Concerns Assessment Noted Time PHQ-9 Depression Total Score: 1 05/17/20 20 3:00 PM CDT documented as of this encounter Care Teams Manufacturing Chief Engineer Relationship Specialty Start Date End Date Garrick Ruiz MD [address] [place] [address] PCP - General Family Practice 01/08/22 documented as of this encounter
--- OUTSIDE RECORDS SUMMARY | 2025-01-20 11:39 | XMS_ITS | Encounter Summary ---
Author Organization [facility] Address [address] [place] [address] Care Team Providers Care Molecular Modeler Name Role Phone Allison Palacios MD Unavailable [phone] Garrick Ruiz MD Primary Care Provider Encounter Details Date Type Department Care Team (Late st Contact Info) Description 11/15/2024 Lab Requisition [facility] - DermPath Lab [address] [facility] [place] [address] Stephany Hudson PA [address] [place] [address] Social History Tobacco Use Types Packs/Day Years [...] Comments DERMATOPATHOLOGY Routine 11/15/2024 12:4 3 PM IMAGING CENTER MANAGER documented in this encounter Results * DERMATOPATHOLOGY (11/15/2024 12:43 PM IMAGING CENTER MANAGER) Case Report Dermatopathology Report Case: [id number] Authorizing Provider: Stephany Hudson PA Collected: 11/15/2024 12:43 PM Ordering Location: [facility] - Received: 11/16/2024 02:03 PM DermPath Lab Pathologist: Flor Zheng MD Specimen: Skin, left scalp 3:17 PM [facility] DERMATOPATHOLOGY LABORATORY Final Diagnosis Specimen A. SKIN, left scalp: SQUAMOUS CELL CARCINOMA IN SITU, PRESENT AT THE BASE OF THE SPECIMEN (D04.4) (see microscopic description and comment) OVERLYING CUTANEOUS HORN (L85.8) 3:17 PM [facility] DERMATOPATHOLOGY LABORATORY Clinical History R/O SCC; Growing 3:17 PM [facility] DERMATOPATHOLOGY LABORATORY Gross Description Specimen A: Received is one formalin filled container labeled with the patient's name and designated left scalp. The specimen consists of a shave biopsy measuring 10x9x5 mm. Jar 0. 3:17 PM [facility] DERMATOPATHOLOGY LABORATORY Microscopic Description Specimen A. SKIN, left scalp: The epidermis shows parakeratosis, full thickness disorderly maturation of keratinocytes, mitoses at different levels, and dyskeratotic cells. The lesion extends to the base of the biopsy. There is a column of marked compact hyperkeratosis. COMMENT: An invasive squamous cell carcinoma cannot be ruled out. 3:17 PM [facility] DERMATOPATHOLOGY LABORATORY Disclaimer An external and internal positive and negative controls are appropriate for the histochemical, immunohistochemical and immunofluorescence stain(s) in this case (if any), except where stated explicitly. The performance characteristics of the stain(s) cited in this report were developed and its performance characteristic determined by the Dermatopathology Laboratory at [facility], directed by Dr. Oliver Elmore. These tests need not be, and therefore are not, approved by the [place] Food and Drug Administration. The tests are used for clinical purposes. Billing Codes Specimen Charges Stain Charges 42973 1 3:17 PM IMAGING CENTER MANAGER DERMATOPATHOLOGY LABORATORY Embedded Images 3:17 PM IMAGING CENTER MANAGER DERMATOPATHOLOGY LABORATORY Pathology/Cytolo gy TISSUE SPECIMEN FROM SKIN / Unknown 11/15/2024 12:43 PM IMAGING CENTER MANAGER 11/16/2024 2:03 PM IMAGING CENTER MANAGER Stephany GLASS LAB - PATHOLOGY/CYTO LOGY ORDERABLES DERMATOPATHOLOGY LABORATORY [facility] - Department of Dermatology [facility] Medicine [address] [place] [address], [address] [phone] documented in this encounter Visit Diagnoses Not on filedocumented in this encounter Care Teams Molecular Modeler Relationship Specialty Start Date End Date Garrick Ruiz MD [address] [facility] [address] [place] [address] PCP - General Family Medicine 07/03/23 Allison Palacios MD Oncology 03/21/15 documented as of this encounter
--- OUTSIDE RECORDS SUMMARY | 2025-01-20 11:39 | XMS_ITS | Clinical Summary ---
Author Organization [facility] [address] [facility] Address [address] [place] [address] Care Team Providers Care Char Filter Tank Tender Head Name Role Phone Unavailable Primary Care Provider [...] clean and dry. Use cool setting chair when getting out of the shower. Diflucan [...] probably needs to see the ENT and general maintenance engineer. H/O bilateral mastectomy 02/18/2021 Assessment & Plan [...] radical mastectomy. The tumor was ER positive, [place] positive, HER-2/heidi negative. Patient had bilateral mastectomy [...] CDT): Dr. Ricardo Cano -- TERESADimitri in [place] manages as under close surveliance Elevated liver enzymes 01/30/2021 Assessment & Plan (04/22/2021 7:20 PM CDT): Monitor. Stable since starting crestor Assessment & Plan (03/05/2021 10:45 PM CDT): Monitor labs especially with starting the statin Assessment & Plan (02/18/2021 9:34 AM CDT): Monitor closely Chronic obstructive pulmonary disease 04/01/2013 Overview (02/18/2021): Dr. Ronni Florian -- Pulmonary with [facility] [phone] Assessment & Plan (04/22/2021 7:19 PM CDT): [...] 05/17/2020 Surgical History Surgery Date Site/Laterality Comments [place] LIG/TRNSXJ FLP TUBE ABDL/ VAG APPR UNI/BI Tubal Ligation - (Added by TW Conv) [place] CHOLECYSTECTOMY Cholecystectomy - (Added by TW Conv) MASTECTOMY double Medical History Medical History Date Comments Malignant neoplasm of female breast (HCC) Breast cancer - s/p bilatera l mastectomy February 1004. Follows with Dr. Cindy Palacios MD, medical oncologist @ [facility] Clinic: [facility] [place], , (Added by TW Conv) Chronic obstructive [...] on file Legal Sex Female 8:21 PM PRESS CATCHER Gender Identity Not on file Sexual Orientation [...] of Treatment Not on file Insurance MEDICARE [facility] MEDICARE [facility] Advance Directives For more information, please contact: [phone] Documents on File Type Date Recorded Patient Supervisor Tumblers Expl 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
--- OUTSIDE RECORDS SUMMARY | 2025-01-20 11:39 | XMS_ITS | Encounter Summary ---
Author Organization [facility] Address [address] [facility] [place] [address] Care Team Providers Care Tube Heater Name Role Phone Allison Palacios MD Unavailable [phone] Garrick Ruiz MD Primary Care Provider Reason for Visit * Reason Onset Date Comments Question 06/16/2023 Encounter Details Date Type Department Care Team (Late st Contact Info) Description 06/16/2023 Telephone [facility] - LABORER [facility]AR[facility] [address] [facility] [address] [place] [address] Marietta Ochoa, DAY TRADER-TRANSPORT MEDIC [address] [facility] [address] [place] [phone] Question Social History Tobacco Use Types Packs/Day [...] never all the way gone New insurance: [facility] Medicare Advantage A[employer] Baking soda sitz baths in cool water until she hears back from this office * Telephone Encounter - Atilio Wood - 06/16/2023 4:06 PM CDT Patient called and wants the nurse to call her back. Please called Patient back: CB: [phone] documented in this encounter Plan of Treatment Not on file documented as of this encounter Goals Goal Patient Goal Type Associated Problems Recent Progress Patient-Stated? Author Quit smoking / using tobacco Lifestyle Not on track( 015 3:03 PM CDT) No Rashmi Betancourt documented as of this encounter Visit Diagnoses Not on filedocumented in this encounter Care Teams Tube Heater Relationship Specialty Start Date End Date Garrick Ruiz MD [address] [place] [address] PCP - General Family Medicine 07/03/23 Allison Palacios MD Oncology 03/21/15 documented as of this encounter
--- OUTSIDE RECORDS SUMMARY | 2025-01-20 11:39 | XMS_ITS ---
Author Organization [facility] Administrative Offices Address [address] [place] [address] Care Team Providers Care Wrecking Supervisor Name Role Phone Garrick Ruiz MD Primary Care Provider Active Problems Patient Care Coordination No te Formatting of this note migh t be different from the original. Primary Care: Amirah Ralph MD Referring Provider: Amirah Ralph MD [address] [facility] [address] [place] [address] Other: Problem Noted Date Diagnosed Date Acute [...] months. Assessment & Plan (11/25/2019 12:38 PM FREELANCE WRITER): I discussed the CT scan scan results [...] radical mastectomy. The tumor was ER positive, [place] positive, HER-2/heidi negative. Assessment & Plan (05/09/2016 [...] 09/11. Assessment & Plan (10/19/2018 2:31 PM FREELANCE WRITER): She remains in clinical complete remission. Advised [...] questions. Assessment & Plan (01/09/2011 3:25 PM FREELANCE WRITER): Clinically there is no evidence of disease [...] questions. Assessment & Plan (01/03/2010 3:55 PM FREELANCE WRITER): There is no evidence of for disease [...] well. Assessment & Plan (11/25/2019 12:39 PM FREELANCE WRITER): She does not smoke any longer and [...] ago. Assessment & Plan (10/19/2018 2:35 PM FREELANCE WRITER): Encouraged her to stay off smoking. Assessment [...] smoking. Assessment & Plan (01/09/2011 3:24 PM FREELANCE WRITER): Patient continues to smoke cigarettes, but down to one pack of cigarettes per day. I have counseled her again at length to quit smoking. Assessment & Plan (07/11/2010 4:05 PM CDT): I have counseled her at length about smoking and its deleterious effects again. Assessment & Plan (01/03/2010 3:55 PM FREELANCE WRITER): I have counseled her at length about [...] 06/07/2024 CISplatin (PLATINOL) with mannitoletoposide (VEPESID / BOOK SALESMAN-16) IVPB Therapy Complete Allison Palacios MD 4 [...]
--- OUTSIDE RECORDS SUMMARY | 2025-01-20 11:39 | XMS_ITS | Encounter Summary ---
Author Organization [facility] Address [address] [place] [address] Care Team Providers Care Marine Transport Professionals Name Role Phone Garrick Ruiz MD Primary Care Provider Encounter Details Date Type Department Care Team (Late st Contact Info) Description 06/02/2020 Telephone [facility] Pulmonary Rehab [address] [place] [address] Moriah Marie, FLY FRAME TENDER Social History Tobacco Use Types Packs/Day Years [...] declined 04/09/2019 How often do you attend methodist or yazidism serv ices? Patient declined 04/09/2019 Do you belong to any clubs o r organizations such as methodist groups, unions, fraternal or athletic groups, or [...] on file Legal Sex Female 5:39 AM TAXONOMIST Gender Identity Not on file Sexual Orientation [...] Description 09/01/2025 2:30 PM CDT Office Visit [facility] Oncology and Hematology - [place] [address] [facility] [address] [place] [address] Ricardo Cano MD [address] [facility] [address] [place] [address] documented as of this encounter Visit Diagnoses Diagnosis Chronic obstructive pulmonary disease, unspecified COPD type (CMS/HCC)- Primary documented in this encounter Additional Health Concerns Assessment Noted Time PHQ-9 Depression Total Score: 1 05/17/20 20 3:00 PM CDT documented as of this encounter Care Teams Marine Transport Professionals Relationship Specialty Start Date End Date Garrick Ruiz MD [address] [place] [address] PCP - General Family Practice 01/08/22 documented as of this encounter
--- OUTSIDE RECORDS SUMMARY | 2025-01-20 11:39 | XMS_ITS | Referral Summary ---
Author Organization [facility] [address] [facility] Address [address] [place] [address] Care Team Providers Care Medical Office Secretary Name Role Phone Unavailable Primary Care Provider [...] area clean and dry. Use cool setting hair mixer when getting out of the shower. Diflucan [...] probably needs to see the ENT and quality assurance/r&d lab technician. H/O bilateral mastectomy 02/18/2021 Assessment & Plan [...] was ER positive, [place] positive, HER-2/heidi negative. Patient had bilateral mastectomy [...] CDT): Dr. Ricardo Cano -- TERESADimitri in [place] manages as under close surveliance Elevated liver enzymes 01/30/2021 Assessment & Plan (04/22/2021 7:20 PM CDT): Monitor. Stable since starting crestor Assessment & Plan (03/05/2021 10:45 PM CDT): Monitor labs especially with starting the statin Assessment & Plan (02/18/2021 9:34 AM CDT): Monitor closely Chronic obstructive pulmonary disease 04/01/2013 Overview (02/18/2021): Dr. 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
--- OUTSIDE RECORDS SUMMARY | 2025-01-20 11:39 | XMS_ITS | Clinical Summary ---
Author Organization [facility] Administrative Offices Address [address] [place] [address] Care Team Providers Care Cnc Field Service Engineer Name Role Phone Garrick Ruiz MD Primary Care Provider Allergies Active Allergy Reactions Criticality Noted Date Comments Cat Dander Cough Low 09/23/2016 Dog Dander Cough Low 09/23/2016 Etoposide Dizziness Medium 07/11/2023 PASS OUT. Juniper Cough Low 09/23/2016 Mold Cough Low 09/23/2016 Tree Pollen-Red Maple Other (See Comments) 09/04 Nasal congestion , eye swelling [place] Other (See Comments) 09/23/2016 See other side [...] Ralph MD Referring Provider: Amirah Ralph MD [address] [facility] [address] [place] [address] Other: Problem Noted Date Diagnosed Date Acute [...] months. Assessment & Plan (11/25/2019 12:38 PM ENVIRONMENTAL INSPECTOR): I discussed the CT scan scan results [...] radical mastectomy. 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 Assessment & Plan (05/09/2016 [...] 09/11. Assessment & Plan (10/19/2018 2:31 PM ENVIRONMENTAL INSPECTOR): She remains in clinical complete remission. Advised [...] questions. Assessment & Plan (01/09/2011 3:25 PM ENVIRONMENTAL INSPECTOR): Clinically there is no evidence of disease [...] questions. Assessment & Plan (01/03/2010 3:55 PM ENVIRONMENTAL INSPECTOR): There is no evidence of for disease [...] well. Assessment & Plan (11/25/2019 12:39 PM ENVIRONMENTAL INSPECTOR): She does not smoke any longer and [...] ago. Assessment & Plan (10/19/2018 2:35 PM ENVIRONMENTAL INSPECTOR): Encouraged her to stay off smoking. Assessment [...] smoking. Assessment & Plan (01/09/2011 3:24 PM ENVIRONMENTAL INSPECTOR): Patient continues to smoke cigarettes, but down to one pack of cigarettes per day. I have counseled her again at length to quit smoking. Assessment & Plan (07/11/2010 4:05 PM CDT): I have counseled her at length about smoking and its deleterious effects again. Assessment & Plan (01/03/2010 3:55 PM ENVIRONMENTAL INSPECTOR): I have counseled her at length about the deleterious effect of smoking, and asked her to contact her PCP for a prescription for Chantix. She verbalized understanding. Resolved Problems Problem Noted Date Diagnosed Date Resolved Date Cataract, left 03/03/2017 03/12/2017 Cataract, right 02/17/2017 03/12/2017 Cancer of breast, female 07/07/200901/2010 Encounters Date Type Department Care Team Description 12/29/2024 2:45 PM ENVIRONMENTAL INSPECTOR Office Visit [facility] Oncology and Hematology [facility] [address] [place] [address] Ricardo Cano MD Small cell carcinoma [...] How often do you attend protestant or samaritan serv ices? Patient declined 04/09/2019 Do you [...] on file Legal Sex Female 5:39 AM ENVIRONMENTAL INSPECTOR Gender Identity Not on file Sexual Orientation Not on file Occupation Industry Job Start Date Job End Date Not on file Not on file Not on file Not on file Last Filed Vital Signs Vital Sign Reading Time Taken Comments Blood Pressure 132/81 12/29/2024 2:15 PM ENVIRONMENTAL INSPECTOR Pulse 97 12/29/2024 2:15 PM ENVIRONMENTAL INSPECTOR Temperature 35.7 C (96.3 F) 12/29/2024 2:15 PM ENVIRONMENTAL INSPECTOR Respiratory Rate 14 12/29/2024 2:15 PM ENVIRONMENTAL INSPECTOR Oxygen Saturation 93% 12/29/2024 2:15 PM ENVIRONMENTAL INSPECTOR Inhaled Oxygen Concentration - - Weight 73.5 kg (162 lb) 12/29/2024 2:15 PM ENVIRONMENTAL INSPECTOR Height 160 cm (5' 3 ) 03/05/2024 6:28 AM CDT Body Mass Index 28.7 03/05/2024 6:28 AM CDT Plan of Treatment Upcoming Encounters Date Type Department Care Team (Late st Contact Info) Description 09/01/2025 2:30 PM CDT Office Visit [facility] Oncology and Hematology - [place] [address] [address] [address] [place] [address] Ricardo Cano MD [address] [facility] [address] [place] [address] Health Maintenance Due Date Last Done Comments FIT-DNA Q 3 years 1998 FIT/FOBT Q 1 year 1998 Flex Sig/CT Colonography Q 5 years 1998 RSV VACCINE (60+ or ) (1 - Risk 60-74 years 1-dose series) 2013 ZOSTER VACCINE (2 of 3) 07/12/2020 05/17/2020 PNEUMOCOCCAL VACCINE 50+ YEA RS (3 of 3 - PCV20 or PCV21) 09/04/2023 09/04/2018, 08/09/2015, 08/09/2015 COLORECTAL SCREENING 11/13/2023 11/13/2018, 11/13/2018, 11/13/2018 Colorectal Cancer Screening 11/13/2023 INFLUENZA VACCINE (#1) 2024 , 08/28/2020, 08/26/2019, Additional history exists COVID-19 Vaccine (3 - 2023-2 5 season) 2024 02/05/2021, 01/04/2021 [place] ([place]) Preventative Visit/Annual Wellness Visit 11/03/2024 09/29/2019, 09/04/2018, 08/09/2015, Additional history exists DTAP/TDAP/TD VACCINES (2 - T d or Tdap) 08/09/2025 08/09/2015 OSTEOPOROSIS SCREENING Completed 04/28/2023, 2017 BREAST CANCER SCREENING Discontinued Medical Devices Implanted Type Area Multimedia Services Coordinator Device Identifier Shelf Expiration Date Model / Serial / Lot Lens Io Acrysof Iq Ultrasert Au00t0.235 - [id number] Implanted:Qty: 1 on 02/18/2017 by Nas Griffiths MD at [facility] Eye Right: Eye [facility] 07/03/2019 AU00T0.235 / [id number] / Lens Io Acrysof Iq Ultrasert Au00t0.245 - [id number] Implanted:Qty: 1 on 03/04/2017 by Nas Griffiths MD at [facility] Eye Left: Eye [facility] 07/03/2019 AU00T0.245 / [id number] / Procedures Procedure Name Priority Date/Time Associated Diagnosis Comments COLONOSCOPY REPORT 11/13/2018 10 :43 AM ENVIRONMENTAL INSPECTOR XR DEXA BONE DENSITY AXIAL 1 OR MORE SITES Routine 09/11/2018 1:50 PM ENVIRONMENTAL INSPECTOR Asymptomatic postmenopausal state Screening for osteoporosis from Last 3 Months or Most Recently Relevant to Health Maintenance Results * COLONOSCOPY REPORT (11/13/2018 10:43 AM ENVIRONMENTAL INSPECTOR) Narrative Procedure Note Elenita Mahoney DO - 11/13/2018 10:43 AM CST [facility] Endoscopy Patient Name: Fide Hayes Procedure Date: [...] of Addenda: [address]; [place] [address] Elenita Mahoney DO GI PROCEDURE ORDERABLES Fin al Result * XR DEXA BONE DENSITY AXIAL 1 OR MORE SITES (09/11/2018 1:50 PM ENVIRONMENTAL INSPECTOR) Anatomical Region Laterality Modality Digital Radiogra phy 09/11/2018 1:51 PM ENVIRONMENTAL INSPECTOR Impressions 09/11/2018 2:06 PM ENVIRONMENTAL INSPECTOR IMPRESSION: This is a summary page. Please refer to the complete detailed report found in the Imaging Section of the [facility] EMR. Osteopenic femoral neck BMD. Lumbar Spine: [...] Garcia MD DICTATION LOCATION: 09/11/2018 2:06 PM ENVIRONMENTAL INSPECTOR EXAMINATION: BONE DENSITY STUDY (DXA) DATE: 09/11/2018 [...] found in the Imaging Section of the [facility] EMR. Osteopenic femoral neck BMD. Lumbar Spine: [...] Relevant to Health Maintenance [place] [facility] [id number] RX EZ-DME Medicare Part B RX OPTUM RX [place] [address] [place] [id number] Advance Directives For more information, please contact: [phone] Documents on File Type Date Recorded Patient Gold Layer Expl anation Advance Directive Living Will 06/28/2021 [...] 8:34 AM 02/18/2017 10:48 AM Care Teams Cnc Field Service Engineer Relationship Specialty Start Date End Date Garrick Ruiz MD [address] [place] [id number] PCP - General Family Practice 01/08/22
--- OUTSIDE RECORDS SUMMARY | 2025-01-20 11:39 | XMS_ITS | Encounter Summary ---
Author Organization [facility] Address [address] [place] [address] Care Team Providers Care College Athletic Director Name Role Phone Allison Palacios MD Unavailable [phone] Garrick Ruiz MD Primary Care Provider Reason for Visit * Reason Onset Date Comments Question 04/25/2023 Encounter Details Date Type Department Care Team (Late st Contact Info) Description 04/25/2023 Telephone [facility] ANGLE DOZER OPERATOR [address] [facility] [address] [place] [address] Edelmira Castellano MD [address] [facility] [address] [place] [address] Question Social History Tobacco Use [...] on filedocumented in this encounter Care Teams College Athletic Director Relationship Specialty Start Date End Date Garrick Ruiz MD [address] [place] [address] PCP - General Family Medicine 07/03/23 Allison Palacios MD Oncology 03/21/15 documented as of this encounter
[2025-01-20 14:38] LABS: Alanine Aminotransferase 22 U/L (6-35); Albumin Level 4.2 g/dL (3.5-5.1); Alkaline Phosphatase 126 U/L (38-126); Anion Gap 11 mmol/L (4-12); Aspartate Amino Transferase 42 U/L (14-36); Bilirubin,Total 0.7 mg/dL (0.2-1.3); Blood Urea Nitrogen 15 mg/dL (7-17); Calcium 9.3 mg/dL (8.4-10.2); Carbon Dioxide 28 mmol/L (22-30); Chloride 102 mmol/L (98-107); Estimated Glomerular Filt Rate 54; Glucose 96 mg/dL (65-110); Potassium 4.1 mmol/L (3.4-5.0); Sodium 141 mmol/L (137-145)
[2025-01-20 16:48] LABS: Hemoglobin A1C 5.7 % (<5.7)
[2025-01-20 18:27] LABS: Vitamin D 25 Hydroxy 43.7 ng/mL
[2025-01-20 18:41] LABS: Thyroid Stimulating Hormone Reflex 0.595 uIU/mL (0.465-4.68)
== END 2025-01-20 10:49 | disposition home or self-care (01) ==
LOC: ANHGOSHLAB 10:50
PROVIDERS: PCP Family Medicine; Visit Provider Family Medicine
DX: E03.9 Hypothyroidism, unspecified (principal); R73.03 Prediabetes; E55.9 Vitamin D deficiency, unspecified; I10 Essential (primary) hypertension
CPT/HCPCS: 36415; 80053; 82306; 83036; 84443

== ENCOUNTER 2025-01-20 12:02 | Outpatient (CLI) | payer MEDICARE, MEDICAID, SELFPAY ==
--- NOTE | ~2025-01-20 | XR_ITS ---
[id number] Ordering provider: Magan Ruiz MD History: . R07.81 - Pleurodynia . Comparison: None. FINDINGS: BONES: No acute left rib fracture or fracture of the visualized osseous structures. LEFT LUNG: No effusions or infiltrates. No pneumothorax. SOFT TISSUES: Normal. IMPRESSION: No left rib fracture. Reviewed, dictated and finalized at location A. IMPRESSION: No left rib fracture.
--- OUTSIDE RECORDS SUMMARY | 2025-01-20 12:42 | XMS_ITS | Encounter Summary ---
Author Organization [facility] Address [address] [place] [address] Care Team Providers Care Budget Controller Name Role Phone Garrick Ruiz MD Primary Care Provider Encounter Details Date Type Department Care Team (Late Contact Info) Description 05/16/2009 Outpatient Historical [facility], [address] Allison Palacios MD [address] [place] [address] Malignant Neoplasm of Breast (Female), Unspecified Site (CMS/HCC) Social History Tobacco Use Types Packs/Day Years Used Date Smoking Tobacco: Never Assessed Comments Unknown Sex and Gender Information Value Date Recorded Sex Assigned at Not on file Legal Sex Female 5:39 AM OVEN TENDER BAGELS Gender Identity Not on file Sexual Orientation Not on file documented as of this encounter Plan of Treatment Upcoming Encounters Date Type Department Care Team ([facility] Contact Info) Description 09/01/2025 2:30 PM CDT Office Visit [facility] Oncology and Hematology - [place] [address] [facility] [address] [place] [address] Ricardo Cano MD [address] [facility] [address] [place] [address] documented as of this encounter Visit Diagnoses Diagnosis Malignant neoplasm of breast (female), unspecified site (CMS/HCC) Malignant neoplasm of breast (female), unspecified site documented in this encounter Care Teams Budget Controller Relationship Specialty Start Date End Date Garrick Ruiz MD [address] [place] [address] PCP - General Family Practice 01/08/22 documented as of this encounter
--- OUTSIDE RECORDS SUMMARY | 2025-01-20 12:42 | XMS_ITS | Encounter Summary ---
Author Organization [facility] Address [address] [place] [address] Care Team Providers Care District Adviser Name Role Phone Allison Palacios MD Unavailable [phone] Garrick Ruiz MD Primary Care Provider Encounter Details Date Type Department Care Team (Late st Contact Info) Description 11/15/2024 Lab Requisition [facility] - DermPath Lab [address] [facility] [place] [phone] Stephany Hudson PA [address] [place] [address] Social History Tobacco Use Types Packs/Day Years [...] Comments DERMATOPATHOLOGY Routine 11/15/2024 12:4 3 PM FLOUR BROKER documented in this encounter Results * DERMATOPATHOLOGY (11/15/2024 12:43 PM FLOUR BROKER) Case Report Dermatopathology Report Case: [id number] Authorizing Provider: Stephany Hudson PA Collected: 11/15/2024 12:43 PM Ordering Location: [facility] - Received: 11/16/2024 02:03 PM DermPath Lab Pathologist: Flor Zheng MD Specimen: Skin, left scalp 3:17 PM [facility] DERMATOP[facility]AT[facility] Final Diagnosis Specimen A. SKIN, left scalp: SQUAMOUS CELL CARCINOMA IN SITU, PRESENT AT THE BASE OF THE SPECIMEN (D04.4) (see microscopic description and comment) OVERLYING CUTANEOUS HORN (L85.8) 3:17 PM [facility] DERMATOPATH[facility] Clinical History R/O SCC; Growing 3:17 PM [facility] Gross Description Specimen A: Received is one formalin filled container labeled with the patient's name and designated left scalp. The specimen consists of a shave biopsy measuring 10x9x5 mm. Jar 0. 3:17 PM [facility]ERMAT[facility] Microscopic Description Specimen A. SKIN, left scalp: The epidermis shows parakeratosis, full thickness disorderly maturation of keratinocytes, mitoses at different levels, and dyskeratotic cells. The lesion extends to the base of the biopsy. There is a column of marked compact hyperkeratosis. COMMENT: An invasive squamous cell carcinoma cannot be ruled out. 3:17 PM [facility] DERMATOPATH[facility]ORAT[facility] Disclaimer An external and internal positive and negative controls are appropriate for the histochemical, immunohistochemical and immunofluorescence stain(s) in this case (if any), except where stated explicitly. The performance characteristics of the stain(s) cited in this report were developed and its performance characteristic determined by the Dermatopathology Laboratory at [facility], directed by Dr. Oliver Elmore. These tests need not be, and therefore are not, approved by the [place] Food and Drug Administration. The tests are used for clinical purposes. Billing Codes Specimen Charges Stain Charges 72949 1 3:17 PM [facility] Embedded Images 3:17 PM [facility] Pathology/Cytolo gy TISSUE SPECIMEN FROM SKIN / Unknown 11/15/2024 12:43 PM FLOUR BROKER 11/16/2024 2:03 PM [facility] - PATHOLOGY/CYTO LOGY ORDERABLES DERMATOPATHOLOGY LABORATORY [facility] - Department of Dermatology [facility] [address] [place] [address], [address] [phone] documented in this encounter Visit Diagnoses Not on filedocumented in this encounter Care Teams District Adviser Relationship Specialty Start Date End Date Garrick Ruiz MD [address] [place] [address] PCP - General Family Medicine 07/03/23 Allison Palacios MD Oncology 03/21/15 documented as of this encounter
--- OUTSIDE RECORDS SUMMARY | 2025-01-20 12:42 | XMS_ITS | Clinical Summary ---
Author Organization [facility] Administrative Offices Address [address] [place] [address] Care Team Providers Care Learning Engineer Name Role Phone Garrick Ruiz MD Primary Care Provider Allergies Active Allergy Reactions Criticality Noted Date Comments Cat Dander Cough Low 09/23/2016 Dog Dander Cough Low 09/23/2016 Etoposide Dizziness Medium 07/11/2023 PASS OUT. Juniper Cough Low 09/23/2016 Mold Cough Low 09/23/2016 Tree Pollen-Red Maple Other (See Comments) 09/04 Nasal congestion , eye swelling [place] Other (See Comments) 09/23/2016 See other side [...] Ralph MD Referring Provider: Amirah Ralph MD [address] [facility] [address] [place] [address] Other: Problem Noted Date Diagnosed Date Acute [...] months. Assessment & Plan (11/25/2019 12:38 PM ELECTRICAL ACCESSORIES I ASSEMBLER): I discussed the CT scan scan results [...] was ER positive, [place] positive, HER-2/heidi negative. Assessment & Plan (05/09/2016 [...] 09/11. Assessment & Plan (10/19/2018 2:31 PM ELECTRICAL ACCESSORIES I ASSEMBLER): She remains in clinical complete remission. Advised [...] questions. Assessment & Plan (01/09/2011 3:25 PM ELECTRICAL ACCESSORIES I ASSEMBLER): Clinically there is no evidence of disease [...] questions. Assessment & Plan (01/03/2010 3:55 PM ELECTRICAL ACCESSORIES I ASSEMBLER): There is no evidence of for disease [...] well. Assessment & Plan (11/25/2019 12:39 PM ELECTRICAL ACCESSORIES I ASSEMBLER): She does not smoke any longer and [...] ago. Assessment & Plan (10/19/2018 2:35 PM ELECTRICAL ACCESSORIES I ASSEMBLER): Encouraged her to stay off smoking. Assessment [...] smoking. Assessment & Plan (01/09/2011 3:24 PM ELECTRICAL ACCESSORIES I ASSEMBLER): Patient continues to smoke cigarettes, but down to one pack of cigarettes per day. I have counseled her again at length to quit smoking. Assessment & Plan (07/11/2010 4:05 PM CDT): I have counseled her at length about smoking and its deleterious effects again. Assessment & Plan (01/03/2010 3:55 PM ELECTRICAL ACCESSORIES I ASSEMBLER): I have counseled her at length about the deleterious effect of smoking, and asked her to contact her PCP for a prescription for Chantix. She verbalized understanding. Resolved Problems Problem Noted Date Diagnosed Date Resolved Date Cataract, left 03/03/2017 03/12/2017 Cataract, right 02/17/2017 03/12/2017 Cancer of breast, female 07/07/200901/2010 Encounters Date Type Department Care Team Description 12/29/2024 2:45 PM ELECTRICAL ACCESSORIES I ASSEMBLER Office Visit [facility] Oncology and Hematology [facility] [address] [place] [address] Ricardo Cano MD Small cell carcinoma [...] declined 04/09/2019 How often do you attend christian or christian serv ices? Patient declined 04/09/2019 Do you belong to any clubs o r organizations such as christian groups, unions, fraternal or athletic groups, or [...] on file Legal Sex Female 5:39 AM ELECTRICAL ACCESSORIES I ASSEMBLER Gender Identity Not on file Sexual Orientation Not on file Occupation Industry Job Start Date Job End Date Not on file Not on file Not on file Not on file Last Filed Vital Signs Vital Sign [place] Time Taken Comments Blood Pressure 132/81 12/29/2024 2:15 PM ELECTRICAL ACCESSORIES I ASSEMBLER Pulse 97 12/29/2024 2:15 PM ELECTRICAL ACCESSORIES I ASSEMBLER Temperature 35.7 C (96.3 F) 12/29/2024 2:15 PM ELECTRICAL ACCESSORIES I ASSEMBLER Respiratory Rate 14 12/29/2024 2:15 PM ELECTRICAL ACCESSORIES I ASSEMBLER Oxygen Saturation 93% 12/29/2024 2:15 PM ELECTRICAL ACCESSORIES I ASSEMBLER Inhaled Oxygen Concentration - - Weight 73.5 kg (162 lb) 12/29/2024 2:15 PM ELECTRICAL ACCESSORIES I ASSEMBLER Height 160 cm (5' 3 ) 03/05/2024 6:28 AM CDT Body Mass Index 28.7 03/05/2024 6:28 AM CDT Plan of Treatment Upcoming Encounters Date Type Department Care Team (Late st Contact Info) Description 09/01/2025 2:30 PM CDT Office Visit [facility] Oncology and Hematology - [place] [address] [facility] [address] [facility] [address] [place] [address] Ricardo Cano MD [address] [facility] [address] [place] [address] Health Maintenance Due Date Last [...] 5 season) 2024 02/05/2021, 01/04/2021 [place] ([place]) Preventative Visit/Annual Wellness Visit 11/03/2024 09/29/2019, 09/04/2018, 08/09/2015, Additional history exists DTAP/TDAP/TD VACCINES (2 - T d or Tdap) 08/09/2025 08/09/2015 OSTEOPOROSIS SCREENING Completed 04/28/2023, 2017 BREAST CANCER SCREENING Discontinued Medical Devices Implanted Type Area Life Insurance Sales Device Identifier Shelf Expiration Date Model / Serial / Lot Lens Io Acrysof Iq Ultrasert Au00t0.235 - [id number] Implanted:Qty: 1 on 02/18/2017 by [place] [facility] Right: Eye [facility] 07/03/2019 AU00T0.235 / [id number] / Lens Io Acrysof Iq Ultrasert Au00t0.245 - [id number] Implanted:Qty: 1 on 03/04/2017 by [place] Griffith[place] [facility] Left: Eye [facility] 07/03/2019 AU00T0.245 / [id number] / Procedures Procedure Name Priority Date/Time Associated Diagnosis Comments COLONOSCOPY REPORT 11/13/2018 10 :43 AM ELECTRICAL ACCESSORIES I ASSEMBLER XR DEXA BONE DENSITY AXIAL 1 OR MORE SITES Routine 09/11/2018 1:50 PM ELECTRICAL ACCESSORIES I ASSEMBLER Asymptomatic postmenopausal state Screening for osteoporosis from Last 3 Months or Most Recently Relevant to Health Maintenance Results * COLONOSCOPY REPORT (11/13/2018 10:43 AM ELECTRICAL ACCESSORIES I ASSEMBLER) Narrative Procedure Note Elenita Mahoney DO - 11/13/2018 10:43 AM CST [facility] Endoscopy Patient Name: Fide Hayes Procedure [...] of Addenda: [address]; [place] [address] Elenita Mahoney DO GI PROCEDURE ORDERABLES Fin al Result * XR DEXA BONE DENSITY AXIAL 1 OR MORE SITES (09/11/2018 1:50 PM ELECTRICAL ACCESSORIES I ASSEMBLER) Anatomical Region Laterality Modality Digital Radiogra phy 09/11/2018 1:51 PM ELECTRICAL ACCESSORIES I ASSEMBLER Impressions 09/11/2018 2:06 PM ELECTRICAL ACCESSORIES I ASSEMBLER IMPRESSION: This is a summary page. Please refer to the complete detailed report found in the Imaging Section of the [facility] EMR. Osteopenic femoral neck BMD. Lumbar [...] Garcia MD DICTATION LOCATION: 09/11/2018 2:06 PM ELECTRICAL ACCESSORIES I ASSEMBLER EXAMINATION: BONE DENSITY STUDY (DXA) DATE: 09/11/2018 [...] found in the Imaging Section of the [facility] EMR. Osteopenic femoral neck BMD. Lumbar [...] Relevant to Health Maintenance [place] [address] [facility] [id number] RX EZ-DME Medicare Part B RX OPTUM RX [place], [place] [id number] [place] [id number] Advance Directives For more information, please contact: [phone] Documents on File Type Date Recorded Patient Spark Plug Assembler Expl anation Advance Directive Living Will 06/28/2021 [...] 8:34 AM 02/18/2017 10:48 AM Care Teams Learning Engineer Relationship Specialty Start Date End Date Garrick Ruiz MD [address] [place] [address] PCP - General Family Practice 01/08/22
--- OUTSIDE RECORDS SUMMARY | 2025-01-20 12:42 | XMS_ITS | Clinical Summary ---
Author Organization [facility] M[facility] Address [address] [place] [address] Care Team Providers Care Metalizing Supervisor Name Role Phone Allison Palacios MD Unavailable [phone] Garrick Ruiz MD Primary Care Provider Source Comments [facility], formerly [facility],non-owned Affiliates and Associated Physician Practices is amultiple site organization consisting of ambulatory clinics and hospital sitesin [place], [place], [place] and [place]. This disclosure is being madepursuant to the Care Everywhere program and may not contain all information available regarding this patient. Last updated 18.[facility] Allergies Active Allergy Reactions Criticality Noted Date [...] by mouth once daily Active nystatin (Mycostatin) [id number] UNIT/GM ointmentIndications:F ungal infection Apply to affected [...] (04/02/2023): Dr. Ronni Florian -- Pulmonary with [facility] [phone] Last Assessment & Plan: Continue per PUlmonary Malignant neoplasm of upper- outer quadrant of left female breast 07/07/2009 04/02/2023 Overview (04/02/2023): Stage I (T1, N0, M0) diagnosed in 2003 and had modified radical mastectomy. The tumor was ER positive, W[place] positive, HER-2/heidi negative. Last Assessment & Plan: [...] Department Care Team Description 11/15/2024 Lab Requisition [facility] - DermPath Lab [address] [place] [address] Stephany Hudson PA from Last 3 Months [...] Comments DERMATOPATHOLOGY Routine 11/15/2024 12:4 3 PM RETAIL DEPARTMENT MANAGER HEMOGLOBIN A1C Routine 04/02/2023 1:08 PM CDT Vulvar itching Fungal infection Pre-diabetes LIPID PROFILE W LDL/HDL RATIO Routine 03/25/2015 7:47 AM CDT Lipid screening from Last 3 Months or Most Recently Relevant to Health Maintenance Results * DERMATOPATHOLOGY (11/15/2024 12:43 PM RETAIL DEPARTMENT MANAGER) Case Report Dermatopathology Report Case: [id number] Authorizing Provider: Stephany Hudson PA Collected: 11/15/2024 12:43 PM Ordering Location: [facility] - Received: 11/16/2024 02:03 PM DermPath Lab Pathologist: Flor Zheng MD Specimen: Skin, left scalp 3:17 PM [facility] DERMATOPATHOLOGY LABORATORY Final Diagnosis Specimen A. SKIN, left scalp: SQUAMOUS CELL CARCINOMA IN SITU, PRESENT AT THE BASE OF THE SPECIMEN (D04.4) (see microscopic description and comment) OVERLYING CUTANEOUS HORN (L85.8) 3:17 PM [facility] DERMATOPATHOLOGY LABORATORY Clinical History R/O SCC; Growing 3:17 PM RETAIL DEPARTMENT MANAGER DERMATOPATHOLOGY LABORATORY Gross Description Specimen A: Received is one formalin filled container labeled with the patient's name and designated left scalp. The specimen consists of a shave biopsy measuring 10x9x5 mm. Jar 0. 3:17 PM RETAIL DEPARTMENT MANAGER DERMATOPATHOLOGY LABORATORY Microscopic Description Specimen A. SKIN, left scalp: The epidermis shows parakeratosis, full thickness disorderly maturation of keratinocytes, mitoses at different levels, and dyskeratotic cells. The lesion extends to the base of the biopsy. There is a column of marked compact hyperkeratosis. COMMENT: An invasive squamous cell carcinoma cannot be ruled out. 3:17 PM [facility] DERMATOPATHOLOGY LABORATORY Disclaimer An external and internal positive and negative controls are appropriate for the histochemical, immunohistochemical and immunofluorescence stain(s) in this case (if any), except where stated explicitly. The performance characteristics of the stain(s) cited in this report were developed and its performance characteristic determined by the Dermatopathology Laboratory at [facility], directed by Dr. Oliver Elmore. These tests need not be, and therefore are not, approved by the [place] Food and Drug Administration. The tests are used for clinical purposes. Billing Codes Specimen Charges Stain Charges 70316 1 3:17 PM [facility] DERMATOPATHOLOGY LABORATORY Embedded Images 3:17 PM [facility] DERMATOPATHOLOGY LABORATORY Pathology/Cytolo gy TISSUE SPECIMEN FROM SKIN / Unknown 11/15/2024 12:43 PM RETAIL DEPARTMENT MANAGER 11/16/2024 2:03 PM RETAIL DEPARTMENT MANAGER Stephany GLASS LAB - PATHOLOGY/CYTO LOGY ORDERABLES DERMATOPATHOLOGY LABORATORY [facility] - Department of Dermatology [address], [address] [phone] * HEMOGLOBIN A1C (04/02/2023 1:08 PM CDT) Hemoglobin A1c TNP % of total Hgb [facility] Comment: TEST NOT PERFORMED No suitable specimen received. Please review the test requirements at testdirectory.[employer] Test Performed at: [facility] [employer] [address] DEA BHAT MD Blood BLOOD SPECIMEN / Unknown 04/02/2023 1:08 PM CDT 04/02/2023 9:27 PM CDT Marietta Ochoa ELEVATOR STARTER-HARNESS FITTER LAB - CHEMI STRY ORDERABLES [address] [address] * (ABNORMAL) LIPID PROFILE W LDL/HDL (PO [...] AM CDT Narrative Resulting Agency Comment [facility] [address] [id number] Anneliese Bowers MD LAB - CHEMISTRY YELITZA WOOD [facility] ACCOUNT BILL from Last 3 Months or Most Recently Relevant to Health Maintenance Insurance Payer Benefit Plan / Group Subscriber ID Effective Dates Phone Address Type [facility] MANAGED MEDICARE ADV [facility] MEDICARE ADV HMO/POS [id number] 06/03/2023-Pres ent [address] [address] [place] [address] Medicare-Man aged Care MEDICARE WPS MEDICARE PART B [id number] 02/01/2018-Pres ent [address] [address] [place] [address] Medicare MEDICAID - OUT OF STATE MEDICAID [facility] PUBLIC AID [id number] Effective for all dates [address] [address] [place] [address] Medicaid [facility] CHOICE/SELECT /CHOICE PLUS/ALL PAYORS [id number] 11/03/2014-Pres ent [address] [address] [place] [address] HMO MEDICARE WPS MEDICARE PART B [id number] 02/01/2018-Pres ent [address] [address] [place] [address] Medicare MEDICAID - OUT OF STATE MEDICAID - [place] PUBLIC AID [id number] Effective for all dates [address] [address] [place] [address] Medicaid MEDICARE WPS MEDICARE PART B [id number] 02/01/2018-Pres ent [address] [address] [place] [address] Medicare MEDICAID - OUT OF STATE MEDICAID - [place] PUBLIC AID [id number] Effective for all dates [address] [address] [place] [address] Medicaid [facility] CHOICE/SELECT /CHOICE PLUS/ALL PAYORS [id number] 11/03/2014-Pres ent [address] [address] [place] [address] HMO MEDICARE WPS MEDICARE PART B [id number] Effective for all dates [address] [address] [place] [address] Medicare MEDICAID - OUT OF STATE MEDICAID - [place] PUBLIC AID [id number] Effective for all dates [address] [address] [place] [address] Medicaid [facility] CHOICE/SELECT /CHOICE PLUS/ALL PAYORS [id number] 11/03/2014-Pres ent [address] [address] [place] [address] O MEDICARE WPS MEDICARE PART B [id number] Effective for all dates [address] [address] [place] [address] Medicare MEDICAID - OUT OF STATE MEDICAID [facility] PUBLIC AID [id number] Effective for all dates [address] [address] [place] [address] Medicaid MEDICARE WPS MEDICARE PART B [id number] Effective for all dates [address] [address] [place] [address] Medicare MEDICARE [place]PS MEDICARE PART B [id number] Effective for all dates [address] [address] [place] [address] Medicare MEDICARE [place]PS MEDICARE PART B [id number] Effective for all dates [address] [address] [place] [address] Medicare [facility] CHOICE/SELECT /CHOICE PLUS/ALL PAYORS [id number] 11/03/2014-Pres ent [address] [address] [place] [address] O MEDICAID [place] - [place] [employer] [id number] Effective for all dates ATTN: JANEE DAVIDIN G [address] [place] [address] Medicaid [place] [employer] [id number] Effective for all dates ATTN: WIPRO INFOCROSSIN G [address] [place] [address] Medicaid [place] [id number] 03/25/2023-Pre sent [address] [address] [place] [address] Medicaid [place] Care Teams Metalizing Supervisor Relationship Specialty Start Date End Date Garrick Ruiz MD [address] [place] [address] PCP - General Family Medicine 07/03/23 Allison Palacios MD Oncology 03/21/15
--- OUTSIDE RECORDS SUMMARY | 2025-01-20 12:42 | XMS_ITS | Encounter Summary ---
Author Organization [facility] Address [address] [place] [address] Care Team Providers Care Electrical Accessories Assembler Name Role Phone Allison Palacios MD Unavailable [phone] Garrick Ruiz MD Primary Care Provider Reason for Visit * Reason Onset Date Comments Question 04/25/2023 Encounter Details Date Type Department Care Team (Late st Contact Info) Description 04/25/2023 Telephone [facility] - PIANO REFINISHER [address] [facility] [address] [place] [address] Edelmira Castellano MD [address] [facility] [address] [place] [address] Question Social History Tobacco Use [...] on filedocumented in this encounter Care Teams Electrical Accessories Assembler Relationship Specialty Start Date End Date Garrick Ruiz MD [address] [place] [address] PCP - General Family Medicine 07/03/23 Allison Palacios MD Oncology 03/21/15 documented as of this encounter
--- OUTSIDE RECORDS SUMMARY | 2025-01-20 12:42 | XMS_ITS | Referral Summary ---
Author Organization [facility] [address] [facility] Address [address] [place] [address] Care Team Providers Care Child Care Supervisor Name Role Phone Unavailable Primary Care Provider [...] clean and dry. Use cool setting hair rooting machine operator when getting out of the shower. Diflucan [...] probably needs to see the ENT and signal and communications maintainer. H/O bilateral mastectomy 02/18/2021 Assessment & Plan [...] radical mastectomy. The tumor was ER positive, [place] positive, HER-2/heidi negative. Patient had bilateral mastectomy [...] CDT): Dr. Ricardo Cano -- [facility] in [place] manages as under close surveliance Elevated liver enzymes 01/30/2021 Assessment & Plan (04/22/2021 7:20 PM CDT): Monitor. Stable since starting crestor Assessment & Plan (03/05/2021 10:45 PM CDT): Monitor labs especially with starting the statin Assessment & Plan (02/18/2021 9:34 AM CDT): Monitor closely Chronic obstructive pulmonary disease 04/01/2013 Overview (02/18/2021): Dr. 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
--- OUTSIDE RECORDS SUMMARY | 2025-01-20 12:42 | XMS_ITS ---
Author Organization [facility] Administrative Offices Address [address] [place] [address] Care Team Providers Care Wedding Designer Name Role Phone Garrick Ruiz MD Primary Care Provider Active Problems Patient Care Coordination No te Formatting of this note migh t be different from the original. Primary Care: Amirah Ralph MD Referring Provider: Amirah Ralph MD [address] [facility] [address] [place] [address] Other: Problem Noted Date Diagnosed Date Acute [...] months. Assessment & Plan (11/25/2019 12:38 PM ENGINEERING TECH): I discussed the CT scan scan results [...] 09/11. Assessment & Plan (10/19/2018 2:31 PM ENGINEERING TECH): She remains in clinical complete remission. Advised [...] questions. Assessment & Plan (01/09/2011 3:25 PM ENGINEERING TECH): Clinically there is no evidence of disease [...] questions. Assessment & Plan (01/03/2010 3:55 PM ENGINEERING TECH): There is no evidence of for disease [...] well. Assessment & Plan (11/25/2019 12:39 PM ENGINEERING TECH): She does not smoke any longer and [...] ago. Assessment & Plan (10/19/2018 2:35 PM ENGINEERING TECH): Encouraged her to stay off smoking. Assessment [...] smoking. Assessment & Plan (01/09/2011 3:24 PM ENGINEERING TECH): Patient continues to smoke cigarettes, but down to one pack of cigarettes per day. I have counseled her again at length to quit smoking. Assessment & Plan (07/11/2010 4:05 PM CDT): I have counseled her at length about smoking and its deleterious effects again. Assessment & Plan (01/03/2010 3:55 PM ENGINEERING TECH): I have counseled her at length about [...] 06/07/2024 CISplatin (PLATINOL) with mannitoletoposide (VEPESID / COUNTER POCKET SEWER-16) IVPB Therapy Complete Allison Palacios MD 4 [...]
--- OUTSIDE RECORDS SUMMARY | 2025-01-20 12:42 | XMS_ITS | Clinical Summary ---
Author Organization [facility] [address] [facility] Address [address] [place] [address] Care Team Providers Care Paper Pattern Folder Name Role Phone Unavailable Primary Care Provider [...] area clean and dry. Use cool setting power hair clipper when getting out of the shower. Diflucan [...] probably needs to see the ENT and tint layer. H/O bilateral mastectomy 02/18/2021 Assessment & Plan [...] radical mastectomy. The tumor was ER positive, [place] positive, HER-2/heidi negative. Patient had bilateral mastectomy [...] CDT): Dr. Ricardo Cano -- [facility] in [place] manages as under close surveliance Elevated liver enzymes 01/30/2021 Assessment & Plan (04/22/2021 7:20 PM CDT): Monitor. Stable since starting crestor Assessment & Plan (03/05/2021 10:45 PM CDT): Monitor labs especially with starting the statin Assessment & Plan (02/18/2021 9:34 AM CDT): Monitor closely Chronic obstructive pulmonary disease 04/01/2013 Overview (02/18/2021): Dr. Ronni Florian -- Pulmonary with [facility] [phone] Assessment & Plan (04/22/2021 7:19 PM CDT): [...] 05/17/2020 Surgical History Surgery Date Site/Laterality Comments NE LIG/TRNSXJ FLP TUBE ABDL/ VAG APPR UNI/BI Tubal Ligation - (Added by TW Conv) NE CHOLECYSTECTOMY Cholecystectomy - (Added by TW Conv) MASTECTOMY double Medical History Medical History Date Comments Malignant neoplasm of female breast (HCC) Breast cancer - s/p bilatera l mastectomy February 1004. Follows with Dr. 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
--- OUTSIDE RECORDS SUMMARY | 2025-01-20 12:42 | XMS_ITS | Encounter Summary ---
Author Organization [facility] Address [address] [place] [address] Care Team Providers Care Induction Machine Setter Name Role Phone Allison Palacios MD Unavailable [phone] Garrick Ruiz MD Primary Care Provider Reason for Visit * Reason Onset Date Comments Question 06/16/2023 Encounter Details Date Type Department Care Team (Late st Contact Info) Description 06/16/2023 Telephone [facility] - VALVE STEAMER [address] [facility] [address] [place] [address] Marietta Ochoa, SLIP CASTER-MATERIAL MANAGER [address] [facility] [address] [place] [address] Question Social History Tobacco Use Types Packs/Day [...] never all the way gone New insurance: [facility] Medicare Advantage AARP Baking soda sitz baths in cool water until she hears back from this office * Telephone Encounter - Atilio Wood - 06/16/2023 4:06 PM CDT Patient called and wants the nurse to call her back. Please called Patient back: CB: [phone] documented in this encounter Plan of Treatment Not on file documented as of this encounter Goals Goal Patient Goal Type Associated Problems Recent Progress Patient-Stated? Author Quit smoking / using tobacco Lifestyle Not on track( 015 3:03 PM CDT) No Rashmi Betancourt documented as of this encounter Visit Diagnoses Not on filedocumented in this encounter Care Teams Induction Machine Setter Relationship Specialty Start Date End Date Garrick Ruiz MD [address] [place] [address] PCP - General Family Medicine 07/03/23 Allison Palacios MD Oncology 03/21/15 documented as of this encounter
--- OUTSIDE RECORDS SUMMARY | 2025-01-20 12:43 | XMS_ITS | Encounter Summary ---
Author Organization [facility] Address [address] [place] [address] Care Team Providers Care Art Dealer Name Role Phone Garrick Ruiz MD Primary Care Provider Encounter Details Date Type Department Care Team (Late st Contact Info) Description 06/02/2020 Telephone [facility] Pulmonary Rehab [address] [place] [address] Moriah Marie, BIOMETRICS INSTRUCTOR Social History Tobacco Use Types Packs/Day Years [...] declined 04/09/2019 How often do you attend spiritism or mormonism serv ices? Patient declined 04/09/2019 Do you belong to any clubs o r organizations such as spiritism groups, unions, fraternal or athletic groups, or [...] on file Legal Sex Female 5:39 AM SCREED OPERATOR Gender Identity Not on file Sexual Orientation [...] Description 09/01/2025 2:30 PM CDT Office Visit [facility] Oncology and Hematology - [place] [address] [place] [address] Ricardo Cano MD [address] [facility] [address] [place] [address] documented as of this encounter Visit Diagnoses Diagnosis Chronic obstructive pulmonary disease, unspecified COPD type (CMS/HCC)- Primary documented in this encounter Additional Health Concerns Assessment Noted Time PHQ-9 Depression Total Score: 1 05/17/20 20 3:00 PM CDT documented as of this encounter Care Teams Art Dealer Relationship Specialty Start Date End Date Garrick Ruiz MD [address] [place] [address] PCP - General Family Practice 01/08/22 documented as of this encounter
--- OUTSIDE RECORDS SUMMARY | 2025-01-20 12:43 | XMS_ITS | Encounter Summary ---
Author Organization [facility] [employer] [facility] Address [address] [place] [address] Care Team Providers Care Catalyst Concentration Operator Name Role Phone Garrick Ruiz MD Primary Care Provider Reason for Visit * Reason Onset Date Comments labs and ct order 08/23/2022 Encounter Details Date Type Department Care Team (Late st Contact Info) Description 08/23/2022 Telephone [facility] Oncology and Hematology - [place] [facility] Moi Mares [address] [address] Dwaine Phillips MD [address] [place] [address] [address] [place] [address] order Social [...] declined 04/09/2019 How often do you attend jain or hindu serv ices? Patient declined 04/09/2019 Do you belong to any clubs o r organizations such as jain groups, unions, fraternal or athletic groups, or [...] on file Legal Sex Female 5:39 AM WEIGHT COUNT OPERATOR Gender Identity Not on file Sexual [...] Description 09/01/2025 2:30 PM CDT Office Visit [facility] Oncology and Hematology [facility] [address] [facility] [address] [place] [address] Ricardo Cano MD [address] [facility] [address] [place] [address] documented as of this encounter Visit Diagnoses Diagnosis Small cell lung cancer (CMS/HCC)- Primary Malignant neoplasm of bronchus and lung, unspecified site documented in this encounter Additional Health Concerns Assessment Noted Time PHQ-9 Depression Total Score: 1 05/17/20 20 3:00 PM CDT documented as of this encounter Care Teams Catalyst Concentration Operator Relationship Specialty Start Date End Date Garrick Ruiz MD [address] [place] [address] PCP - General Family Practice 01/08/22 documented as of this encounter
== END 2025-01-20 12:03 | disposition home or self-care (01) ==
PROVIDERS: PCP Family Medicine; Visit Provider Family Medicine
DX: R07.81 Pleurodynia (principal)
CPT/HCPCS: 36415; 71101; 80053; 82306; 83036; 84443

== ENCOUNTER 2025-08-26 08:55 | Outpatient (CLI) | payer MEDICARE, MEDICAID, SELFPAY ==
--- NOTE | ~2025-08-26 | CT_ITS ---
Exam: CT chest without contrast Clinical History: [Small cell cancer of the lung ] Comparison: [ CT chest 12/15/2024] Technique: Multiple axial CT images of the chest without with IV contrast. Sagittal and coronal reformatted images were obtained. FINDINGS: Lungs and pleura: [ Tracheobronchial tree is patent. No pneumothorax. No pleural effusion. No pulmonary mass. Extensive centrilobular emphysema in the upper lobes. Biapical scarring.] Stable probable scarring in the posterior medial right upper lobe. Mediastinum and pulmonary servando: [ No mass or adenopathy.] Axillary/intramammary and supraclavicular: [ No mass or adenopathy.] Heart and great vessels: [ Normal heart size.[ [ Small pericardial effusion, unchanged.] [ No aneurysm.] Moderate atherosclerosis in the thoracic aorta. There are coronary artery calcifications. Chest Wall: [ Unremarkable.] Upper Abdomen: Nonobstructing right renal stones. Osseous structures: [ No acute fracture lesion.] [ Multilevel degenerative change in the visualized spine.] Bones appear osteopenic. Additional findings: Small hiatal hernia. IMPRESSION: 1. Grossly stable exam as compared to the study from 10/14/2025. 2. No CT evidence for active malignancy or metastatic disease. 3. Severe emphysema with probable scarring in the posterior medial right upper lobe, unchanged. 4. Small pericardial effusion, unchanged. Reviewed, dictated and finalized at location Q.
--- OUTSIDE RECORDS SUMMARY | 2025-08-26 09:05 | XMS_ITS | Clinical Summary ---
Author Organization [facility] [address] [facility] Address [address] [place] [address] Care Team Providers Care Remelt Worker Name Role Phone Unavailable Primary Care Provider [...] area clean and dry. Use cool setting unhairer when getting out of the shower. Diflucan [...] probably needs to see the ENT and burnisher and bumper. H/O bilateral mastectomy 02/18/2021 Assessment & Plan [...] radical mastectomy. The tumor was ER positive, [place] positive, HER-2/heidi negative. Patient had bilateral mastectomy [...] CDT): Dr. Ricardo Cano -- [place] in [place] manages as under close surveliance Elevated liver enzymes 01/30/2021 Assessment & Plan (04/22/2021 7:20 PM CDT): Monitor. Stable since starting crestor Assessment & Plan (03/05/2021 10:45 PM CDT): Monitor labs especially with starting the statin Assessment & Plan (02/18/2021 9:34 AM CDT): Monitor closely Chronic obstructive pulmonary disease 04/01/2013 Overview (02/18/2021): Dr. Ronni Florian -- Pulmonary with [facility] [phone] Assessment & Plan (04/22/2021 7:19 PM CDT): [...] 05/17/2020 Surgical History Surgery Date Site/Laterality Comments FL LIG/TRNSXJ FLP TUBE ABDL/ VAG APPR UNI/BI Tubal Ligation - (Added by TW Conv) [place] CHOLECYSTECTOMY Cholecystectomy - (Added by TW Conv) MASTECTOMY double Medical History Medical History Date Comments Malignant neoplasm of female breast (HCC) Breast cancer - s/p bilatera l mastectomy February 1004. Follows with Dr. Cindy Palacios MD, medical oncologist @ [facility]: [facility] Cancer and Breast [place], , (Added by TW Conv) Chronic obstructive pulmonary disease Chronic obstructive pulmonary disease - Diagnosed 12-15 years ago. 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
[2025-08-26 09:36] LABS: Estimated Glomerular Filt Rate > 60
== END 2025-08-26 08:56 | disposition home or self-care (01) ==
PROVIDERS: PCP Family Medicine; Visit Provider Internal Medicine Hematology & Oncology
DX: J43.9 Emphysema, unspecified (principal); I31.39 Other pericardial effusion (noninflammatory); C34.90 Malignant neoplasm of unspecified part of unspecified bronchus or lung
CPT/HCPCS: 71260; Q9967

== ENCOUNTER 2025-10-05 11:52 | Outpatient (CLI) | payer MEDICARE, MEDICAID, SELFPAY ==
[2025-10-05 12:20] LABS: Hematocrit 43.3 % (37.0-47.0); Hemoglobin 14.3 g/dL (12.0-15.0); Immature Granulocyte Percent A 0.2 % (0-0.5); Lymphocytes Absolute Auto 1.80 K/mm3 (0.9-3.2); Mean Corpuscular HGB Conc 33.0 g/dl (32-36); Mean Corpuscular Hemoglobin 32.9 pg (26-34); Mean Corpuscular Volume 99.5 fl (80-100); Nucleated Red Blood Cells Absolute Auto 0.000 K/mm3 (0.0-0.012); Nucleated Red Blood Cells Perc 0.0 % (0.0-0.2); Platelet Count Result 201 k/mm3 (150-375); Red Blood Count 4.35 M/mm3 (4.2-5.4); White Blood Count 6.2 K/mm3 (4.5-10.0)
--- OUTSIDE RECORDS SUMMARY | 2025-10-05 13:20 | XMS_ITS ---
Author Organization [facility] Administrative Offices Address [address] [place] [address] Care Team Providers Care Assembler Production Line Name Role Phone Garrick Ruiz MD Primary Care Provider Active Problems Patient Care Coordination No te Formatting of this note migh t be different from the original. Primary Care: Amirah Ralph MD Referring Provider: Amirah Ralph MD [address] [facility] [address] [place] [address] Other: Problem Noted Date Diagnosed Date Acute [...] months. Assessment & Plan (11/25/2019 12:38 PM DETHISTLER OPERATOR): I discussed the CT scan scan results [...] 09/11. Assessment & Plan (10/19/2018 2:31 PM DETHISTLER OPERATOR): She remains in clinical complete remission. Advised [...] questions. Assessment & Plan (01/09/2011 3:25 PM DETHISTLER OPERATOR): Clinically there is no evidence of disease [...] questions. Assessment & Plan (01/03/2010 3:55 PM DETHISTLER OPERATOR): There is no evidence of for disease [...] well. Assessment & Plan (11/25/2019 12:39 PM DETHISTLER OPERATOR): She does not smoke any longer and [...] ago. Assessment & Plan (10/19/2018 2:35 PM DETHISTLER OPERATOR): Encouraged her to stay off smoking. Assessment [...] smoking. Assessment & Plan (01/09/2011 3:24 PM DETHISTLER OPERATOR): Patient continues to smoke cigarettes, but down to one pack of cigarettes per day. I have counseled her again at length to quit smoking. Assessment & Plan (07/11/2010 4:05 PM CDT): I have counseled her at length about smoking and its deleterious effects again. Assessment & Plan (01/03/2010 3:55 PM DETHISTLER OPERATOR): I have counseled her at length about [...] 06/07/2024 CISplatin (PLATINOL) with mannitoletoposide (VEPESID / CHISEL TRIMMER-16) IVPB Therapy Complete Allison Palacios MD 4 [...]
--- OUTSIDE RECORDS SUMMARY | 2025-10-05 13:20 | XMS_ITS | Encounter Summary ---
Author Organization [facility] Address [address] [place] [address] Care Team Providers Care Parts Counter Sales Person Name Role Phone Garrick Ruiz MD Primary Care Provider Encounter Details Date Type Department Care Team (Late st Contact Info) Description 06/02/2020 Telephone [facility] Pulmonary Rehab [address] [place] [address] Moriah Marie, GLOBAL ANALYTICS HEAD Social History Tobacco Use Types Packs/Day Years [...] declined 04/09/2019 How often do you attend episcopalian or jehovah's witness serv ices? Patient declined 04/09/2019 Do you belong to any clubs o r organizations such as episcopalian groups, unions, fraternal or athletic groups, or [...] on file Legal Sex Female 5:39 AM ASSISTANT FIELD HOCKEY COACH Gender Identity Not on file Sexual Orientation [...] Care Team (Late st Contact Info) Description 10/18/2025 1:00 PM ASSISTANT FIELD HOCKEY COACH Office Visit [facility] Oncology and Hematology - [place] [address] [place] [address] Ricardo Cano MD [address] [facility] [address] [place] [address] documented as of this encounter Visit Diagnoses Diagnosis Chronic obstructive pulmonary disease, unspecified COPD type (CMS/HCC)- Primary documented in this encounter Additional Health Concerns Assessment Noted Time PHQ-9 Depression Total Score: 1 05/17/20 20 3:00 PM CDT documented as of this encounter Care Teams Parts Counter Sales Person Relationship Specialty Start Date End Date Garrick Ruiz MD [address] [place] [phone] PCP - General Family Practice 01/08/22 documented as of this encounter
--- OUTSIDE RECORDS SUMMARY | 2025-10-05 13:20 | XMS_ITS | Encounter Summary ---
Author Organization [facility] Address [address] [place] [address] Care Team Providers Care Staff Counselor Name Role Phone Allison Palacios MD Unavailable [phone] Garrick Ruiz MD Primary Care Provider Reason for Visit * Reason Onset Date Comments Question 06/16/2023 Encounter Details Date Type Department Care Team (Late st Contact Info) Description 06/16/2023 Telephone [facility] - BELT CONVEYOR DRIER [address] [facility] [address] [place] [address] Marietta Ochoa, CLAY PREPARATION SUPERVISOR-HEALTH TECHNICIAN [address] [facility] [address] [place] [phone] Question Social History Tobacco Use Types Packs/Day Years Used Date Smoking Tobacco: Former Cigarettes 2 53 Passive Smoke Exposure: Past Smokeless Tobacco: Never Alcohol Use Standard Drinks/Week Comments No 0 (1 standard drink = 0.6 oz pur e alcohol) very occ Comments No Sex and Gender Information Value Date Recorded Sex Assigned at Not on file Legal Sex Female 6:31 AM SQL DBA Gender Identity Not on file Sexual Orientation [...] never all the way gone New insurance: [facility] Medicare Advantage AARP Baking soda sitz baths in cool water until she hears back from this office * Telephone Encounter - Atilio Wood - 06/16/2023 4:06 PM CDT Patient called and wants the nurse to call her back. Please called Patient back: CB: [phone] documented in this encounter Plan of Treatment Not on file documented as of this encounter Goals Goal Patient Goal Type Associated Problems Recent Progress Patient-Stated? Author Quit smoking / using tobacco Lifestyle Not on track( 015 3:03 PM CDT) No Rashmi Betancourt MA documented as of this encounter Visit Diagnoses Not on filedocumented in this encounter Care Teams Staff Counselor Relationship Specialty Start Date End Date Garrick Ruiz MD [address] [place] [address] PCP - General Family Medicine 07/03/23 Allison Palacios MD Oncology 03/21/15 documented as of this encounter
--- OUTSIDE RECORDS SUMMARY | 2025-10-05 13:20 | XMS_ITS | Encounter Summary ---
Author Organization [facility] Address [address] [facility] [place] [address] Care Team Providers Care Chef Assistant Name Role Phone Allison Palacios MD Unavailable [phone] Garrick Ruiz MD Primary Care Provider Reason for Visit * Reason Onset Date Comments Question 04/25/2023 Encounter Details Date Type Department Care Team (Late st Contact Info) Description 04/25/2023 Telephone [facility] - DOCUMENT DESIGN SPECIALIST [address] [facility] [address] [place] [address] Edelmira Castellano MD [address] [facility] [address] [place] [address] Question Social History Tobacco Use Types Packs/Day Years Used Date Smoking Tobacco: Former Cigarettes 2 53 Passive Smoke Exposure: Past Smokeless Tobacco: Never Alcohol Use Standard Drinks/Week Comments No 0 (1 standard drink = 0.6 oz pur e alcohol) very occ Comments No Sex and Gender Information Value Date Recorded Sex Assigned at Not on file Legal Sex Female 6:31 AM COMMERCIAL PRINT SALESMAN Gender Identity Not on file Sexual Orientation [...] on filedocumented in this encounter Care Teams Chef Assistant Relationship Specialty Start Date End Date Garrick Ruiz MD [address] [place] [phone] PCP - General Family Medicine 07/03/23 Allison Palacios MD Oncology 03/21/15 documented as of this encounter
--- OUTSIDE RECORDS SUMMARY | 2025-10-05 13:20 | XMS_ITS | Encounter Summary ---
Author Organization [facility] Address [address] [facility] [facility] [place] [address] Care Team Providers Care Jr. Systems Administrator Name Role Phone Allison Palacios MD Unavailable [phone] Garrick Ruiz MD Primary Care Provider Encounter Details Date Type Department Care Team (Late st Contact Info) Description 11/15/2024 Lab Requisition [facility] - DermPath Lab [address] [facility] [place] [phone] EdytaStephany PA [address] [place] [address] Social History Tobacco Use Types Packs/Day Years [...] on file Legal Sex Female 6:31 AM PERSONAL CARE AID Gender Identity Not on file Sexual Orientation Not on file documented as of this encounter Plan of Treatment Not on file documented as of this encounter Goals Goal Patient Goal Type Associated Problems Recent Progress Patient-Stated? Author Quit smoking / using tobacco Lifestyle Not on track( 015 3:03 PM CDT) No Rashmi Betancourt MA documented as of this encounter Procedures Procedure Name Priority Date/Time Associated Diagnosis Comments DERMATOPATHOLOGY Routine 11/15/2024 12:4 3 PM [facility]ERSON[facility]ARE A[facility] documented in this encounter Results * DERMATOPATHOLOGY (11/15/2024 12:43 PM [facility]ERSON[facility]ARE A[facility]) Case Report Dermatopathology Report Case: [id number] Authorizing Provider: Stephany Hudson PA Collected: 11/15/2024 12:43 PM Ordering Location: [facility] - Received: 11/16/2024 02:03 PM DermPath Lab Pathologist: Flor Zheng MD Specimen: Skin, left scalp 3:17 PM [facility] DERMATOPATHOLOGY LABORATORY Final Diagnosis Specimen A. SKIN, left scalp: SQUAMOUS CELL CARCINOMA IN SITU, PRESENT AT THE BASE OF THE SPECIMEN (D04.4) (see microscopic description and comment) OVERLYING CUTANEOUS HORN (L85.8) 3:17 PM [facility] DERMATOPATHOLOGY LABORATORY at [address] [facility] Clinical History R/O SCC; Growing 3:17 PM [facility] DERMATOPATHOLOGY LABORATORY Gross Description Specimen A: Received is one formalin filled container labeled with the patient's name and designated left scalp. The specimen consists of a shave biopsy measuring 10x9x5 mm. Jar 0. 3:17 PM [facility] DERMATOPATHOLOGY LABORATORY Microscopic Description Specimen A. SKIN, left scalp: The epidermis shows parakeratosis, full thickness disorderly maturation of keratinocytes, mitoses at different levels, and dyskeratotic cells. The lesion extends to the base of the biopsy. There is a column of marked compact hyperkeratosis. COMMENT: An invasive squamous cell carcinoma cannot be ruled out. 3:17 PM [facility] DERMATOPATHOLOGY LABORATORY Disclaimer An external and internal positive and negative controls are appropriate for the histochemical, immunohistochemical and immunofluorescence stain(s) in this case (if any), except where stated explicitly. The performance characteristics of the stain(s) cited in this report were developed and its performance characteristic determined by the Dermatopathology Laboratory at [facility], directed by Dr. Oliver Elmore. These tests need not be, and therefore are not, approved by the [place] Food and Drug Administration. The tests are used for clinical purposes. Billing Codes Specimen Charges Stain Charges 72852 1 5 3:17 PM [facility] DERMATOPATHOLOGY LABORATORY Embedded Images 5 3:17 PM [facility] DERMATOPATHOLOGY LABORATORY Pathology/Cytolo gy TISSUE SPECIMEN FROM SKIN / Unknown 11/15/2024 12:43 PM [facility] 11/16/2024 2:03 PM [facility] us [facility] - PATHOLOGY/CYTOLOGY ORDERAB LES Final Result DERMATOPATHOLOGY LABORATORY [facility] - Department of Dermatology [facility] Medicine [address] [place] [address], [address] [phone] documented in this encounter Visit Diagnoses Not on filedocumented in this encounter Care Teams Jr. Systems Administrator Relationship Specialty Start Date End Date Garrick Ruiz MD [address] [facility] [place] [address] PCP - General Family Medicine 07/03/23 Allison Palacios MD Oncology 03/21/15 documented as of this encounter
--- OUTSIDE RECORDS SUMMARY | 2025-10-05 13:20 | XMS_ITS | Encounter Summary ---
Author Organization [facility] [employer] [facility] Address [address] [place] [address] Care Team Providers Care Fitness Sales Consultant Name Role Phone Garrick Ruiz MD Primary Care Provider Reason for Visit * Reason Onset Date Comments labs and ct order 08/23/2022 Encounter Details Date Type Department Care Team (Late st Contact Info) Description 08/23/2022 Telephone [facility] Oncology and Hematology - [place] [address] [address] Dwaine Phillips MD [address] [place] [address] [place] [phone] order Social History [...] declined 04/09/2019 How often do you attend sabianist or moravian serv ices? Patient declined 04/09/2019 Do you belong to any clubs o r organizations such as sabianist groups, unions, [employer] or athletic groups, or school groups? Patient [...] on file Legal Sex Female 5:39 AM HOB MACHINE OPERATOR Gender Identity Not on file Sexual [...] st Contact Info) Description 10/18/2025 1:00 PM HOB MACHINE OPERATOR Office Visit [facility] Oncology and Hematology [facility] [address] [facility] [address] [place] [address] Ricardo Cano MD [address] [facility] [address] [place] [address] documented as of this encounter Visit Diagnoses Diagnosis Small cell lung cancer (CMS/HCC)- Primary Malignant neoplasm of bronchus and lung, unspecified site documented in this encounter Additional Health Concerns Assessment Noted Time PHQ-9 Depression Total Score: 1 05/17/20 20 3:00 PM CDT documented as of this encounter Care Teams Fitness Sales Consultant Relationship Specialty Start Date End Date Garrick Ruiz MD [address] [place] [address] PCP - General Family Practice 01/08/22 documented as of this encounter
--- OUTSIDE RECORDS SUMMARY | 2025-10-05 13:20 | XMS_ITS | Encounter Summary ---
Author Organization [facility] Address [address] [place] [address] Care Team Providers Care Priming Powder Premix Blender Name Role Phone Garrick Ruiz MD Primary Care Provider Encounter Details Date Type Department Care Team (Late Contact Info) Description 05/16/2009 Outpatient Historical [facility], [address] Allison Palacios MD [address] [place] [address] Malignant Neoplasm of Breast (Female), Unspecified Site (CMS/HCC) Social History Tobacco Use Types Packs/Day Years Used Date Smoking Tobacco: Never Assessed Comments Unknown Sex and Gender Information Value Date Recorded Sex Assigned at Not on file Legal Sex Female 5:39 AM TURBO GENERATOR OILER Gender Identity Not on file Sexual Orientation Not on file documented as of this encounter Plan of Treatment Upcoming Encounters Date Type Department Care Team (Late Contact Info) Description 10/18/2025 1:00 PM TURBO GENERATOR OILER Office Visit [facility] Oncology and Hematology - [place] [address] [facility] [address] [place] [address] Ricardo Cano MD [address] [facility] [address] [place] [address] documented as of this encounter Visit Diagnoses Diagnosis Malignant neoplasm of breast (female), unspecified site documented in this encounter Care Teams Priming Powder Premix Blender Relationship Specialty Start Date End Date Garrick Ruiz MD [address] [place] [address] PCP - General Family Practice 01/08/22 documented as of this encounter
--- OUTSIDE RECORDS SUMMARY | 2025-10-05 13:20 | XMS_ITS | Clinical Summary ---
Author Organization [facility] Administrative Offices Address [address] [place] [address] Care Team Providers Care Ordnance Keeper Name Role Phone Garrick Ruiz MD Primary Care Provider Allergies Active Allergy Reactions Criticality Noted Date Comments Cat Dander Cough Low 09/23/2016 Dog Dander Cough Low 09/23/2016 Etoposide Dizziness Medium 07/11/2023 PASS OUT. Juniper Cough Low 09/23/2016 Mold Cough Low 09/23/2016 Tree Pollen-Red Maple Other (See Comments) 09/04 Nasal congestion , eye swelling [employer] Other (See Comments) 09/23/2016 See other side effects Medications multivitamin (DAILY-KTAHIA) Oral TabIndications:C ancer of breast (female),Cancer of [...] Ralph MD Referring Provider: Amirah Ralph MD [address] [facility] [address] [place] [id number] Other: Problem Noted Date Diagnosed Date Acute [...] months. Assessment & Plan (11/25/2019 12:38 PM LBD TEACHER): I discussed the CT scan scan results [...] radical mastectomy. The tumor was ER positive, MT positive, HER-2/heidi negative. Assessment & Plan (05/09/2016 [...] 09/11. Assessment & Plan (10/19/2018 2:31 PM LBD TEACHER): She remains in clinical complete remission. Advised [...] questions. Assessment & Plan (01/09/2011 3:25 PM LBD TEACHER): Clinically there is no evidence of disease [...] questions. Assessment & Plan (01/03/2010 3:55 PM LBD TEACHER): There is no evidence of for disease [...] well. Assessment & Plan (11/25/2019 12:39 PM LBD TEACHER): She does not smoke any longer and [...] ago. Assessment & Plan (10/19/2018 2:35 PM LBD TEACHER): Encouraged her to stay off smoking. Assessment [...] smoking. Assessment & Plan (01/09/2011 3:24 PM LBD TEACHER): Patient continues to smoke cigarettes, but down to one pack of cigarettes per day. I have counseled her again at length to quit smoking. Assessment & Plan (07/11/2010 4:05 PM CDT): I have counseled her at length about smoking and its deleterious effects again. Assessment & Plan (01/03/2010 3:55 PM LBD TEACHER): I have counseled her at length about the deleterious effect of smoking, and asked her to contact her PCP for a prescription for Chantix. She verbalized understanding. Resolved Problems Problem Noted Date Diagnosed Date Resolved Date Cataract, left 03/03/2017 03/12/2017 Cataract, right 02/17/2017 03/12/2017 Cancer of breast, female 07/07/200901/2010 Encounters Date Type Department Care Team Description 08/30/2025 Orders Only [facility] Oncology and Hematology - [place] [facility] [address] [address] Ricardo Cano MD 08/25/2025 Abstract [facility] Pulmonology [facility] [address] [place] [address] Ronni Florian MD 08/09/2025 External Device Data STL ABSTRACTION Provider, Abstract [...] declined 04/09/2019 How often do you attend confucianism or faith serv ices? Patient declined 04/09/2019 Do you belong to any clubs o r organizations such as confucianism groups, unions, fraternal or athletic groups, or [...] on file Legal Sex Female 5:39 AM LBD TEACHER Gender Identity Not on file Sexual Orientation Not on file Occupation Industry Job Start Date Job End Date Not on file Not on file Not on file Not on file Last Filed Vital Signs Vital Sign Reading Time Taken Comments Blood Pressure 132/81 12/29/2024 2:15 PM LBD TEACHER Pulse 97 12/29/2024 2:15 PM LBD TEACHER Temperature 35.7 C (96.3 F) 12/29/2024 2:15 PM LBD TEACHER Respiratory Rate 14 12/29/2024 2:15 PM LBD TEACHER Oxygen Saturation 93% 12/29/2024 2:15 PM LBD TEACHER Inhaled Oxygen Concentration - - Weight 73.5 kg (162 lb) 12/29/2024 2:15 PM LBD TEACHER Height 160 cm (5' 3) 03/05/2024 6:28 AM CDT Body Mass Index 28.7 03/05/2024 6:28 AM CDT Plan of Treatment Upcoming Encounters Date Type Department Care Team (Late st Contact Info) Description 10/18/2025 1:00 PM LBD TEACHER Office Visit [facility] Oncology and Hematology - [place] [address] [facility] [facility] [address] [place] [address] Ricardo Cano MD [address] [facility] [address] [place] [address] Health Maintenance Due Date Last Done Comments FIT-DNA Q 3 years 1998 FIT/FOBT Q 1 year 1998 Flex Sig/CT Colonography Q 5 years 1998 RSV VACCINE (60+ or ) (1 - Risk 50-74 years 1-dose series) 2003 ZOSTER VACCINE (2 of 3) 07/12/2020 05/17/2020 PNEUMOCOCCAL VACCINE 50+ YEA RS (3 of 3 - PCV20 or PCV21) 09/04/2023 09/04/2018, 08/09/2015, 08/09/2015 COLORECTAL SCREENING 11/13/2023 11/13/2018, 11/13/2018, 11/13/2018 Colorectal Cancer Screening 11/13/2023 Medicare Advantage (NM) Preventative Visit/Annual Wellness Visit 11/03/2024 09/29/2019, 09/04/2018, 08/09/2015, Additional history exists INFLUENZA VACCINE (#1) 2025 , 08/28/2020, 08/26/2019, Additional history exists COVID-19 Vaccine (3 - 2024-2 6 season) 2025 02/05/2021, 01/04/2021 DTAP/TDAP/TD VACCINES (2 - T d or Tdap) 08/09/2025 08/09/2015 OSTEOPOROSIS SCREENING 04/28/2028 04/28/2023, 2017 Medical Devices Implanted Type Area Drywall Installer Device Identifier Shelf Expiration Date Model / Serial / Lot Lens Io Acrysof Iq Ultrasert [id number] - [id number] Implanted:Qty: 1 on 02/18/2017 by Nas Griffiths MD at [facility] Eye Right: Eye [facility] 07/03/2019 AU00T0.235 / [id number] / Lens Io Acrysof Iq Ultrasert Au00t0.245 - [id number] Implanted:Qty: 1 on 03/04/2017 by Nas Griffiths MD at [facility] Eye Left: Eye [facility] 07/03/2019 AU00T0.245 / [id number] / Procedures Procedure Name Priority Date/Time Associated Diagnosis Comments CT CHEST WO CONTRAST Routine 08/26/2025 7:49 AM CDT COLONOSCOPY REPORT 11/13/2018 10 :43 AM LBD TEACHER XR DEXA BONE DENSITY AXIAL 1 OR MORE SITES Routine 09/11/2018 1:50 PM LBD TEACHER Asymptomatic postmenopausal state Screening for osteoporosis from Last 3 Months or Most Recently Relevant to Health Maintenance Results * CT CHEST WO CONTRAST (08/26/2025 7:49 AM CDT) Anatomical Region Laterality Modality Chest Computed Tomogra phy Ricardo Cano MD CT ORDERABLES Final Result * COLONOSCOPY REPORT (11/13/2018 10:43 AM LBD TEACHER) Narrative Procedure Note Elenita Mahoney DO - 11/13/2018 10:43 AM CST [facility] Endoscopy Patient Name: Fide Hayes Procedure Date: [...] of Addenda: [address]; [place] [address] Elenita Mahoney DO GI PROCEDURE ORDERABLES Fin al Result * XR DEXA BONE DENSITY AXIAL 1 OR MORE SITES (09/11/2018 1:50 PM LBD TEACHER) Anatomical Region Laterality Modality Digital Radiogra phy 09/11/2018 1:51 PM LBD TEACHER Impressions 09/11/2018 2:06 PM LBD TEACHER IMPRESSION: This is a summary page. Please refer to the complete detailed report found in the Imaging Section of the [facility] EMR. Osteopenic femoral neck BMD. Lumbar Spine: [...] Dr. Michi Garcia MD DICTATION LOCATION: 1 Narrative 09/11/2018 2:06 PM LBD TEACHER EXAMINATION: BONE DENSITY STUDY (DXA) DATE: 09/11/2018 [...] found in the Imaging Section of the [facility] EMR. Osteopenic femoral neck BMD. Lumbar Spine: [...] 1 Addie Mcfadden DO DIAGNOSTIC IMAGING [facility] Final Result from Last 3 Months or Most Recently Relevant to Health Maintenance Insurance [place] RX [id number] Medicare Part B RX [employer] RX Member Subscriber Plan / Payer (Ef fective 2023-Present) Name:Fide Hayes Relation to Subscriber:Self Name:Fide Hayes Payer ID:Not on file Group ID:[id number] Type:RX Medicare Part D Address: [place] [place] [facility] [id number] Advance Directives For more information, please contact: [phone] Documents on File Type Date Recorded Patient Potato Pancake Frier Expl anation Advance Directive Living Will 06/28/2021 [...] 8:34 AM 02/18/2017 10:48 AM Care Teams Ordnance Keeper Relationship Specialty Start Date End Date Garrick Ruiz MD [address] [place] [address] PCP - General Family Practice 01/08/22
--- OUTSIDE RECORDS SUMMARY | 2025-10-05 13:20 | XMS_ITS | Clinical Summary ---
Author Organization [facility] [address] [facility] Address [address] [place] [address] Care Team Providers Care Watch Crystal Edge Grinder Name Role Phone Unavailable Primary Care Provider [...] clean and dry. Use cool setting chair mechanic when getting out of the shower. Diflucan [...] probably needs to see the ENT and process treater. H/O bilateral mastectomy 02/18/2021 Assessment & Plan [...] radical mastectomy. The tumor was ER positive, ND positive, HER-2/heidi negative. Patient had bilateral mastectomy [...] CDT): Dr. Ricardo Cano -- [facility] in [place] manages as under close surveliance Elevated liver enzymes 01/30/2021 Assessment & Plan (04/22/2021 7:20 PM CDT): Monitor. Stable since starting crestor Assessment & Plan (03/05/2021 10:45 PM CDT): Monitor labs especially with starting the statin Assessment & Plan (02/18/2021 9:34 AM CDT): Monitor closely Chronic obstructive pulmonary disease 04/01/2013 Overview (02/18/2021): Dr. Ronni Florian -- Pulmonary with [facility] [phone] Assessment & Plan (04/22/2021 7:19 PM CDT): [...] 05/17/2020 Surgical History Surgery Date Site/Laterality Comments ND LIG/TRNSXJ FLP TUBE ABDL/ VAG APPR UNI/BI Tubal Ligation - (Added by TW Conv) ND CHOLECYSTECTOMY Cholecystectomy - (Added by TW Conv) MASTECTOMY double Medical History Medical History Date Comments Malignant neoplasm of female breast (HCC) Breast cancer - s/p bilatera l mastectomy February 1004. Follows with Dr. Cindy Palacios MD, medical oncologist @ [facility] Clinic: [facility] [place], , (Added by TW Conv) Chronic obstructive [...] on file Legal Sex Female 8:21 PM CAN SEALER Gender Identity Not on file Sexual Orientation [...] of Treatment Not on file Insurance MEDICARE [facility] Address: [address] [address] [place] MEDICARE [facility] Advance Directives For more information, please contact: [phone] Documents on File Type Date Recorded Patient Clasp Machine Operator Expl 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
--- OUTSIDE RECORDS SUMMARY | 2025-10-05 13:20 | XMS_ITS | Clinical Summary ---
Author Organization [facility] Address [address] [facility] [place] [address] Care Team Providers Care Tube Coater Name Role Phone Allison Palacios MD Unavailable [phone] Garrick Ruiz MD Primary Care Provider Source Comments [facility],non-owned Affiliates and Associated Physician Practices is amultiple site organization consisting of ambulatory clinics and hospital sitesin [place], [place], [place] and [place]. This disclosure is being madepursuant to the Care Everywhere program and may not contain all information available regarding this patient. Last updated 18.[facility] Allergies Active Allergy Reactions Criticality Noted Date Comments Etoposide Other Medium 07/11/2023 PASS OUT. Medications * Be aware that medications may not be up to date on this document. Alwaysverify current medications with the patient. ibuprofen (MOTRIN) 200 MG tablet Take 1 (one) tablet by mouth once daily Active levothyroxine (Synthroid) 50 MCG tablet Take 1 (one) tablet by mouth once daily 3 Active cetirizine (ZyrTEC) 10 MG tablet Take 1 (one) tablet by mouth once daily Active nystatin (Mycostatin) 703200 UNIT/GM ointmentIndicat ions:Fungal infection Apply to affected area 3 times daily as needed 30 g 2 3 Active methylPREDNISol one (Medrol Dosepak) 4 MG tablet Take by mouth as directed 3 Active vitamin D (Cholecaciferol ) 125 MCG (5000 UT) capsule Take 1 (one) capsule by mouth once daily Active Multiple Vitamins-Minera ls (WOMENS 50+ MULTI VITAMIN/MIN PO) Take 1 [...] (04/02/2023): Dr. Ronni Florian -- Pulmonary with [facility] [phone] Last Assessment & Plan: Continue per PUlmonary Malignant neoplasm of upper- outer quadrant of left female breast 07/07/2009 04/02/2023 Overview (04/02/2023): Stage I (T1, N0, M0) diagnosed in 2003 and had modified radical mastectomy. The tumor was ER positive, CA positive, HER-2/heidi negative. Last Assessment & Plan: [...] visit and had no further questions. 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 Gender Identity Not on file Sexual Orientation [...] 1:38 PM CDT Height 157.5 cm (5' 2.01) 07/11/2023 1 :38 PM CDT Body Mass [...] C SCREENING 07/01/1971 LUNG CANCER SCREENING 2003 Respiratory Syncytial Virus (RSV) Vaccine Pt: or over 60 yrs (1 - Risk 50-74 years 1-dose series) 2003 ZOSTER VACCINE (1 of 2) 2003 PNEUMOCOCCAL VACCINE 50+ (2 of 2 - PCV) 08/09/2016 08/09/2015 LIPID TESTING 03/25/2020 03/25/2015, 04/05/2013 DEPRESSION SCREENING 11/03/2024 MEDICARE AWV CALENDAR YEAR 2024 COVID-19 VACCINE ( season) 2025 10/11/2022, 09/07/2021, 02/05/2021, Additional history exists INFLUENZA VACCINE (#1) 2025 2, 08/15/2021, 08/26/2019, Additional history exists DTAP/TDAP/TD VACCINES (2 - Td or Tdap) [...] 3:03 PM CDT) No Rashmi Betancourt MA Procedures Procedure Name Priority Date/Time Associated Diagnosis Comments HEMOGLOBIN A1C Routine 04/02/2023 1:08 PM CDT Vulvar itching Fungal infection Pre-diabetes LIPID PROFILE W LDL/HDL RATIO Routine 03/25/2015 7:47 AM CDT Lipid screening from Last 3 Months or Most Recently Relevant to Health Maintenance Results * HEMOGLOBIN A1C (04/02/2023 1:08 PM CDT) Hemoglobin A1c TNP % of total Hgb [facility] Comment: TEST NOT PERFORMED No suitable specimen received. Please review the test requirements at [email or web address] Test Performed at: [facility] [address] DEA BHAT MD Blood BLOOD SPECIMEN / Unknown 04/02/2023 1:08 PM CDT 04/02/2023 9:27 PM CDT Marietta Ochoa APRN-HORTICULTURAL TECHNICAL OFFICER LAB - CHEMISTRY ORD ERABLES Final Result [facility] [address] [place] [address] * (ABNORMAL) LIPID PROFILE W LDL/HDL (PO [...] AM CDT Narrative Resulting Agency Comment [facility] [address] [facility] [id number] Anneliese Bowers MD LAB - CHEMISTRY ORDERABLES Fin al Result [facility] ACCOUNT BILL [address] [place] [address] from Last 3 Months or Most Recently Relevant to Health Maintenance Insurance [place] UHC MANAGED MEDICARE ADV [facility] MEDICAID - [place] MEDICARE MEDICARE Member Subscriber Plan / Payer (Ef fective for All Dates) Name:Shaneka Hayesscabdon Chaudhry Member ID:[id number] Relation to Subscriber:Self Name:FIDE HAYES Subscriber ID:[id number] Payer ID:Not on file Group ID:Not on file Type:Medicare Address: [place] [address] MEDICARE Member Subscriber Plan / Payer (Ef fective for All Dates) Name:Shaneka Hayesscabdon Chaudhry Member ID:[id number] Relation to Subscriber:Self Name:FIDE HAYES Subscriber ID:[id number] Payer ID:Not on file Group ID:Not on file Type:Medicare Address: [address] MEDICARE MEDICAID - OUT OF STATE Member Subscriber Plan / Payer (Ef fective for All Dates) Name:Abigail Fide M Relation to Subscriber:Self Name:SHANEKA HAYESSCABDON Chaudhry Payer ID:Not on file Group ID:Not on file Type:Medicaid Address: [address] MEDICARE MEDICAID - OUT OF STATE MEDICARE MEDICAID - OUT OF STATE Member Subscriber Plan / Payer (Ef fective for All Dates) Name:Fide Hayes Relation to Subscriber:Self Name:FIDE HAYES Payer ID:Not on file Group ID:Not on file Type:Medicaid Address: [address] MEDICARE MEDICAID - OUT OF STATE MEDICARE MEDICAID - OUT OF STATE Care Teams Tube Coater Relationship Specialty Start Date End Date Garrick Ruiz MD [address] [place] [address] PCP - General Family Medicine 07/03/23 Allison Palacios MD Oncology 03/21/15
[2025-10-05 13:47] LABS: Alanine Aminotransferase 22 U/L (6-35); Albumin Level 4.2 g/dL (3.5-5.1); Alkaline Phosphatase 109 U/L (38-126); Anion Gap 4 mmol/L (4-12); Aspartate Amino Transferase 47 U/L (14-36); Bilirubin,Total 0.6 mg/dL (0.2-1.3); Blood Urea Nitrogen 14 mg/dL (7-17); Calcium 9.6 mg/dL (8.4-10.2); Carbon Dioxide 30 mmol/L (22-30); Chloride 104 mmol/L (98-107); Estimated Glomerular Filt Rate 59; Glucose 113 mg/dL (65-110); Potassium 4.2 mmol/L (3.4-5.0); Sodium 138 mmol/L (137-145); Total Protein 7.5 g/dL (6.3-8.2)
== END 2025-10-05 11:53 | disposition home or self-care (01) ==
LOC: ANHLAB 11:53
PROVIDERS: PCP Family Medicine; Visit Provider Internal Medicine Hematology & Oncology
DX: C34.90 Malignant neoplasm of unspecified part of unspecified bronchus or lung (principal); C50.412 Malignant neoplasm of upper-outer quadrant of left female breast; Z17.0 Estrogen receptor positive status [ER+]
CPT/HCPCS: 36415; 80053; 85025; 86300